=== PATIENT | male | born 1960 | race Caucasian/White ===

== ENCOUNTER 2016-07-25 01:22 | Observation (INO) | payer SELFPAY ==
[2016-07-25] MEDS ORDERED: NITRO-BID 2% UD PACKETS ONE (01:31)
[2016-07-25] MEDS ORDERED: BABY ASPIRIN 81 MG CHEW PO ONE (01:31)
[2016-07-25] MEDS ORDERED: NITRO-BID 2% UD PACKETS TOP ONE (01:31)
--- NOTE | 2016-07-25 01:37 | ERPHSYRPT ---
- History of Present Illness Time Seen by Provider: 07/25/16 01:24 Historian: patient Exam Limitations: no limitations Physician History: S/P CABG x? 3.5 months ago, but continues to smoke. Also HTN , hyperlipidemia and marijuana use. 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 He states it feels like indigestion 5/10 intensity, substernal , radiating down left arm and into left shoulderblade. Timing/Duration: yesterday, worse (tonight x 30 minutes) Activities at Onset: sleep Quality: sharpness Location: substernal Chest Pain Radiation: arm, back Severity of Pain-Max: severe Severity of Pain-Current: moderate Associated Symptoms: other (knot medial left thigh at site of vein harvest for CABG. ) Prior Chest Pain/Cardiac Workup: angina Aspirin Treatment Today: 81 mg x 4, provided by ED Allergies/Adverse Reactions: naproxen Adverse Reaction (Verified 07/25/16 01:32) Home Medications: Atorvastatin Calcium 40 mg PO HS 07/25/16 [History] Clopidogrel Bisulfate 75 mg [PLAVIX 75 MG Tablet] 75 mg PO DAILY 07/25/16 [History] Lisinopril [Zestril] 2.5 mg PO DAILY 07/25/16 [History] Metoprolol Succinate 50 mg [Toprol Xl 50 MG] 50 mg PO BID 07/25/16 [ History] - Review of Systems Constitutional: No Symptoms Eyes: No Symptoms Ears, Nose, & Throat: No Symptoms Respiratory: No Symptoms Cardiac: Chest Pain Abdominal/Gastrointestinal: No Symptoms Musculoskeletal: No Symptoms Skin: No Symptoms, Other (healed midline sternotomy scar) Neurological: No Symptoms Psychological: No Symptoms Endocrine: No Symptoms Hematologic/Lymphatic: No Symptoms Immunological/Allergic: No Symptoms - Nursing Vital Signs Temperature: 97.8 F Temperature Source: Oral Pulse Rate: 78 Respiratory Rate: 20 - Physical Exam General Appearance: moderate distress Eye Exam: eyes nml inspection Ears, Nose, Throat Exam: normal ENT inspection, pharynx normal Neck Exam: normal inspection, non-tender, supple, full range of motion Respiratory Exam: normal breath sounds, lungs clear Cardiovascular Exam: regular rate/rhythm, normal heart sounds, normal peripheral pulses Gastrointestinal/Abdomen Exam: soft, normal bowel sounds Back Exam: normal inspection, normal range of motion Extremity Exam: normal inspection, normal range of motion, pelvis stable Neurologic Exam: alert, oriented x 3, cooperative, normal mood/affect Skin Exam: normal color, warm, dry SpO2 Interpretation: normal SpO2: 100 Oxygen Delivery: Room Air - Course Nursing assessment & vital signs reviewed: Yes EKG Interpreted by Me: RATE, Sinus Rhythm (68), NORMAL AXIS, Other (Lateral T wave flattening. Rate has slowed since ECG of 4.) - CT Exams Chest CT Interpretation: Negative (No dissection), Tele-radiologist Report (No dissection), No Fracture Abdomen/Pelvis CT Interpretation: Tele-radiologist Report (Possible cholelithiasis. RUQ US recommended.) Ordered Tests: Active Orders 24 hr Category Date Time Status Cnc Supervisor STAT Care 07/25/16 01:43 Active EKG-ER Only STAT Care 07/25/16 01:43 Active IV Insertion STAT Care 07/25/16 01:43 Active Oxygen-ED Only NASAL CANNULA 2 lpm Care 07/25/16 01:43 Active ABDOMEN AND PELVIS W CONTRAST [CT] Stat Exams 07/25/16 01:46 Taken CHEST WITH CONTRAST [CT] Stat Exams 07/25/16 01:46 Taken CBC W DIFF Stat Lab 07/25/16 01:53 Completed CMP Stat Lab 07/25/16 01:53 Completed LIPASE Stat Lab 07/25/16 01:45 Completed NT PRO BNP Stat Lab 07/25/16 01:53 Completed PROTIME WITH INR Stat Lab 07/25/16 01:53 Completed TROPONIN Q3H Lab 07/25/16 01:57 Completed TROPONIN Q3H Lab 07/25/16 04:45 Ordered TROPONIN Q3H Lab 07/25/16 07:45 Ordered TROPONIN Q3H Lab 07/25/16 10:45 Ordered TROPONIN Q3H Lab 07/25/16 13:45 Ordered Urine Triage Profile Stat Lab 07/25/16 01:42 Ordered Medication Summary Discontinued Medications Generic Name Dose Route Start Last Admin Trade Name Freq PRN Reason Stop Dose Admin Aspirin 324 mg 07/25/16 01:31 07/25/16 01:48 Baby Aspirin 81 Mg Chew PO 07/25/16 01:32 324 mg STAT ONE Administration Lorazepam 1 mg 07/25/16 03:05 07/25/16 03:15 Ativan 2 Mg/1 Ml Vial IV 07/25/16 03:06 1 mg STAT ONE Administration Lorazepam Confirm 07/25/16 03:12 Ativan 2 Mg/1 Ml Vial Administered 07/25/16 03:13 Dose 2 mg .ROUTE .STK-MED ONE Morphine Sulfate 4 mg 07/25/16 01:43 07/25/16 01:53 Morphine Sulfate 4 Mg Inj IV 07/25/16 01:44 4 mg STAT ONE Administration Morphine Sulfate Confirm 07/25/16 01:52 Morphine Sulfate 4 Mg Inj Administered 07/25/16 01:53 Dose 4 mg .ROUTE .STK-MED ONE Morphine Sulfate 4 mg 07/25/16 03:08 07/25/16 03:14 Morphine Sulfate 4 Mg Inj IV 07/25/16 03:09 4 mg STAT ONE Administration Morphine Sulfate Confirm 07/25/16 03:10 Morphine Sulfate 4 Mg Inj Administered 07/25/16 03:11 Dose 4 mg .ROUTE .STK-MED ONE Nitroglycerin 1 gm 07/25/16 01:31 07/25/16 01:49 Nitro-Bid 2% Ud Packets TOP 07/25/16 01:32 1 gm STAT ONE Administration Nitroglycerin Confirm 07/25/16 01:31 Nitro-Bid 2% Ud Packets Administered 07/25/16 01:32 Dose 1 gm .ROUTE .STK-MED ONE Ondansetron HCl 4 mg 07/25/16 01:43 07/25/16 01:53 Zofran 4 Mg/2 Ml Vial IV 07/25/16 01:44 4 mg STAT ONE Administration Ondansetron HCl Confirm 07/25/16 01:52 Zofran 4 Mg/2 Ml Vial Administered 07/25/16 01:53 Dose 4 mg .ROUTE .STK-MED ONE Pantoprazole Sodium 40 mg 07/25/16 03:04 07/25/16 03:21 Protonix 40 Mg Iv IV 07/25/16 03:05 40 mg STAT ONE Administration Pantoprazole Sodium Confirm 07/25/16 03:09 Protonix 40 Mg Iv Administered 07/25/16 03:10 Dose 40 mg IV .STK-MED ONE Lab/Rad Data: Laboratory Result Diagrams 07/25/16 01:53 07/25/16 01:53 Laboratory Results 07/25/16 07/25/16 07/25/16 Range/Units 01:57 01:53 01:53 WBC (4.0-10.5) K/mm3 RBC (4.1-5.6) M/mm3 Hgb (12.5-18.0) gm/dl Hct (42-50) % MCV (78-100) fl MCH (26-32) pg MCHC (32-36) g/dl RDW (11.5-14.0) % Plt Count (150-450) K/mm3 MPV (6-9.5) fl Gran % (36.0-66.0) % Lymphocytes % (24.0-44.0) % Monocytes % (0.0-12.0) % Eosinophils % (0.00-5.0) % Basophils % (0.0-0.4) % Basophils # (0-0.4) INR 0.96 (0.8-3.0) Sodium 139 (136-145) mEq/L Potassium 3.8 (3.5-5.1) mEq/L Chloride 101 (98-107) mEq/L Carbon Dioxide 29.0 (21-32) mEq/L Anion Gap 13.0 (5-15) MEQ/L BUN 8 L (9-20) mg/dL Creatinine 1.26 (0.55-1.30) mg/dl Estimated GFR > 60 ML/MIN Glucose 131 H (70-110) MG/DL Calcium 9.0 (8.5-10.1) mg/dL Total Bilirubin 0.3 (0.2-1.0) mg/dL AST 18 (15-37) U/L ALT 26 (12-78) U/L Alkaline Phosphatase 107 (46-116) U/L Troponin I 0.030 (0.000-0.056) ng/ml NT-Pro-B Natriuret Pep 237 H (0-125) pg/ml Serum Total Protein 6.9 (6.4-8.2) gm/dL Albumin 3.7 (3.4-5.0) g/dL Lipase (73-393) U/L 07/25/16 07/25/16 Range/Units 01:53 01:45 WBC 10.8 H (4.0-10.5) K/mm3 RBC 5.14 (4.1-5.6) M/mm3 Hgb 14.9 (12.5-18.0) gm/dl Hct 46.5 (42-50) % MCV 90.5 (78-100) fl MCH 29.0 (26-32) pg MCHC 32.0 (32-36) g/dl RDW 14.7 H (11.5-14.0) % Plt Count 243 (150-450) K/mm3 MPV 9.5 (6-9.5) fl Gran % 54.5 (36.0-66.0) % Lymphocytes % 34.0 (24.0-44.0) % Monocytes % 7.7 (0.0-12.0) % Eosinophils % 3.6 (0.00-5.0) % Basophils % 0.2 (0.0-0.4) % Basophils # 0.02 (0-0.4) INR (0.8-3.0) Sodium (136-145) mEq/L Potassium (3.5-5.1) mEq/L Chloride (98-107) mEq/L Carbon Dioxide (21-32) mEq/L Anion Gap (5-15) MEQ/L BUN (9-20) mg/dL Creatinine (0.55-1.30) mg/dl Estimated GFR ML/MIN Glucose (70-110) MG/DL Calcium (8.5-10.1) mg/dL Total Bilirubin (0.2-1.0) mg/dL AST (15-37) U/L ALT (12-78) U/L Alkaline Phosphatase (46-116) U/L Troponin I (0.000-0.056) ng/ml NT-Pro-B Natriuret Pep (0-125) pg/ml Serum Total Protein (6.4-8.2) gm/dL Albumin (3.4-5.0) g/dL Lipase 118 (73-393) U/L - Progress Progress: improved Air Movement: good Blood Culture(s) Obtained: No Antibiotics given: No Discussed with : Tom Will see patient in: hospital (observation) Counseled pt/family regarding: lab results, diagnosis, need for follow-up, rad results - Departure Time of Disposition: 03:30 Departure Disposition: Observation Clinical Impression: Chest pain Qualifiers: Chest pain type: unspecified Qualified Code(s): R07.9 - Chest pain, unspecified Cholelithiasis Qualifiers: Cholelithiasis location: gallbladder Cholecystitis presence: without cholecystitis Biliary obstruction: without biliary obstruction Qualified Code(s) : K80.20 - Calculus of gallbladder without cholecystitis without obstruction Condition: Stable Critical Care Time: Yes Critical Care Time(excluding separately billable procedures): 75-104 minutes
[2016-07-25] MEDS ORDERED: Zofran 4 MG/2 ML VIAL IV ONE (01:43)
[2016-07-25] MEDS ORDERED: MORPHINE SULFATE 4 MG INJ IV ONE ×2 (01:43→03:08)
[2016-07-25] MEDS ORDERED: Zofran 4 MG/2 ML VIAL ONE (01:52)
[2016-07-25] MEDS ORDERED: MORPHINE SULFATE 4 MG INJ ONE ×2 (01:52→03:10)
[2016-07-25 01:57] LABS: BASOPHIL % 0.2 % (0.0-0.4); Eosinophil % 3.6 % (0.00-5.0); Granulocytes % 54.5 % (36.0-66.0); Mean Cell Volume 90.5 fl (78-100); Mean Platelet Volume 9.5 fl (6-9.5); Monocytes % 7.7 % (0.0-12.0); Platelet Count 243 K/mm3 (150-450); Red Blood Count 5.14 M/mm3 (4.1-5.6); Red Cell Distribution Width 14.7 % (11.5-14.0); White Blood Count 10.8 K/mm3 (4.0-10.5)
[2016-07-25 02:18] LABS: ALBUMIN 3.7 g/dL (3.4-5.0); ALKALINE PHOSPHATASE 107 U/L (46-116); BILIRUBIN,TOTAL 0.3 mg/dL (0.2-1.0); BLOOD UREA NITROGEN 8 mg/dL (9-20); CHLORIDE 101 mEq/L (98-107); Glucose 131 MG/DL (70-110); Potassium 3.8 mEq/L (3.5-5.1); SGOT/AST 18 U/L (15-37); SGPT/ALT 26 U/L (12-78); SODIUM 139 mEq/L (136-145); Total Protein 6.9 gm/dL (6.4-8.2)
[2016-07-25 02:26] LABS: INR 0.96 (0.8-3.0); PROTIME 10.8 SECONDS (8.83-12.87)
[2016-07-25] MEDS ORDERED: PROTONIX 40 MG IV IV ONE ×2 (03:04→03:09)
[2016-07-25] MEDS ORDERED: Ativan 2 MG/1 ML VIAL IV ONE (03:05)
[2016-07-25] MEDS ORDERED: Ativan 2 MG/1 ML VIAL ONE (03:12)
[2016-07-25] MEDS ORDERED: TYLENOL 325 MG PO PRN (04:44)
[2016-07-25] MEDS ORDERED: Senokot-S Tablet PO PRN (04:44)
[2016-07-25] MEDS ORDERED: Zofran 4 MG/2 ML VIAL IV PRN (04:44)
[2016-07-25] MEDS ORDERED: MAALOX ES 30 ML UNIT DOSE PO PRN (04:44)
[2016-07-25] MEDS ORDERED: MILK OF MAGNESIA 30 ML PO PRN (04:44)
[2016-07-25] MEDS ORDERED: NITRO-BID 2% UD PACKETS TOP SCH (06:00)
[2016-07-25] MEDS: MORPHINE SULFATE 2 MG INJ IV PRN ×3 (06:08→08:24)
[2016-07-25 07:51] VITALS: BP 141/67; PULSE 53; O2SAT 94
--- NOTE | 2016-07-25 07:52 | PCM.SSS ---
History of Present Illness - Chief Complaint Chief Complaint: Chest pain rule out ACS History of Present Illness: is a 55 year old male with a history of coronary artery disease who had CABG March of this year. 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 He was short of breath with his pain, initial troponin was negative but second was elevated and he continues to have pain. He currently has on nitro paste and his pain is improved with morphine but continues to return. - Review of Systems Constitutional: No Fever, No Chills Respiratory: No Cough, No Short Of Breath Cardiac: Chest Pain, No Edema, No Palpitations Abdominal/Gastrointestinal: No Abdominal Pain, No Nausea, No Vomiting, No Diarrhea Genitourinary Symptoms: No Dysuria Skin: No Rash All Other Systems: Reviewed and Negative Medications & Allergies Home Medications: Home Medication List Atorvastatin Calcium 40 mg PO HS 07/25/16 [History Confirmed 07/25/16] Clopidogrel Bisulfate 75 mg [PLAVIX 75 MG Tablet] 75 mg PO DAILY 07/25/16 [History Confirmed 07/25/16] Lisinopril [Zestril] 2.5 mg PO DAILY 07/25/16 [History Confirmed 07/25/16] Metoprolol Succinate 50 mg [Toprol Xl 50 MG] 50 mg PO BID 07/25/16 [ History Confirmed 07/25/16] Allergies/Adverse Reactions: Allergies Allergy/AdvReac Type Severity Reaction Status Date / Time naproxen AdvReac Verified 07/25/16 01:32 - Past Medical History Past Medical History: Yes Cardiac History: Myocardial Infarction ([place]) Respiratory History: COPD Musculoskelatal History: No Pertinent History GI Medical History: No Pertinent History History: No Pertinent History Pyscho-Social History: No Pertinent History Male Reproductive Disorders: No Pertinent History Comment: Pt reports that partner reported to him that she tested positive for an STD but he is unsure which one it is. - Past Surgical History Past Surgical History: Yes Cardiac History: CABG GI Surgical History: No Pertinent History Genitourinary Surgical Hx: No Pertinent History Musculskeletal Surgical Hx: No Pertinent History Male Surgical History: No Pertinent History Other Surgical History: Pt reports having CABG in March of this year. - Social History Smoking Status: Current every day smoker How long have you smoked: 40 yrs Exposure to second hand smoke: Yes Alcohol: None Drug Use: marijuana - Physical Exam Vital Signs: Vital Signs - 24 hr Temp Pulse Pulse Resp BP Pulse Ox 07/25/16 07:20 98 07/25/16 06:00 95 07/25/16 04:38 98.5 F 80 20 165/85 95 07/25/16 03:55 97.8 F 78 20 100 07/25/16 03:02 83 14 124/70 97 07/25/16 02:42 74 19 129/68 98 07/25/16 01:27 74 07/25/16 01:24 97.8 F 78 20 162/88 100 General Appearance: no apparent distress, alert Eye Exam: PERRL/EOMI, eyes nml inspection Respiratory Exam: normal breath sounds, lungs clear, No respiratory distress Cardiovascular Exam: regular rate/rhythm, normal heart sounds, normal peripheral pulses Gastrointestinal/Abdomen Exam: soft, normal bowel sounds, No tenderness, No mass Extremity Exam: normal inspection, normal range of motion, pelvis stable Results - Labs Lab/Micro Results: Lab Results-Last 24 Hours 07/25/16 Range/Units 05:00 Troponin I 3.865 H* (0.000-0.056) ng/ml - Other Procedures and Tests Respiratory Therapy 07/25/16 07:20 Oxygen NASAL CANNULA 2 lpm 07/25/16 09:46 EKG ROUTINE 07/26/16 05:00 EKG DAILY 07/27/16 05:00 EKG DAILY 07/28/16 05:00 EKG DAILY Assessment/Plan (1) Non-ST elevation (NSTEMI) myocardial infarction Current Visit: Yes Status: Acute Assessment & Plan: Dr Segura has been contacted and patient will be [facility] care. Code(s): I21.4 - NON-ST ELEVATION (NSTEMI) MYOCARDIAL INFARCTION (2) Chest pain Current Visit: Yes Status: Acute Qualifiers: Chest pain type: unspecified Qualified Code(s): R07.9 - Chest pain, unspecified Code(s): R07.9 - CHEST PAIN, UNSPECIFIED Hospital Summary - Vitals & Intake/Output Vital Signs: Vital Signs Temperature 98.5 F 07/25/16 04:38 Pulse Rate 80 07/25/16 04:38 Respiratory Rate 20 07/25/16 04:38 Blood Pressure 165/85 07/25/16 04:38 O2 Sat by Pulse Oximetry 98 07/25/16 07:20 Intake & Output: Intake & Output 07/22/16 07/23/16 07/24/16 07/25/16 11:59 11:59 11:59 11:59 Weight 79.333 kg - Lab Result Diagrams: 07/25/16 01:53 07/25/16 01:53 Lab Results-Last 24 Hrs: Lab Results-Last 24 Hours 07/25/16 Range/Units 05:00 Troponin I 3.865 H* (0.000-0.056) ng/ml - Procedures and Test Procedures and Tests throughout Hospitalization: Therapy Orders & Screens 07/25/16 07:19 EKG ONCE Comment: Diagnosis: Chest pain rule out ACS 07/25/16 07:20 Oxygen NASAL CANNULA 2 lpm Comment: Diagnosis: Chest pain rule out ACS 07/25/16 09:46 EKG ROUTINE Comment: Diagnosis: Chest pain rule out ACS 07/26/16 05:00 EKG DAILY Comment: Diagnosis: Chest pain rule out ACS 07/27/16 05:00 EKG DAILY Comment: Diagnosis: Chest pain rule out ACS 07/28/16 05:00 EKG DAILY Comment: Diagnosis: Chest pain rule out ACS - Discharge Disposition: Home, Self-Care Condition: Stable Prescriptions: No Action Atorvastatin Calcium 40 mg PO HS Lisinopril [Zestril] 2.5 mg PO DAILY Clopidogrel Bisulfate 75 mg [PLAVIX 75 MG Tablet] 75 mg PO DAILY Metoprolol Succinate 50 mg [Toprol Xl 50 MG] 50 mg PO BID Follow up with: DOCTOR,NO FAMILY [Primary Care Provider] - Forms: Ambulance Transport Record, Transfer Record Inter-Agency
--- NOTE | 2016-07-25 08:27 | PCM.DCORD ---
- Discharge Disposition: [facility] Condition: Serious Prescriptions: No Action Atorvastatin Calcium 40 mg PO HS Lisinopril [Zestril] 2.5 mg PO DAILY Clopidogrel Bisulfate 75 mg [PLAVIX 75 MG Tablet] 75 mg PO DAILY Metoprolol Succinate 50 mg [Toprol Xl 50 MG] 50 mg PO BID Forms: Ambulance Transport Record, Transfer Record Inter-Agency
--- NOTE | 2016-07-25 08:55 | XRAY ---
Indication: Chest pain and left-sided numbness. Possible dissection. Multiple contiguous axial images obtained through the abdomen and pelvis using 80 cc Isovue 370 contrast. Comparison: None CT chest reported separately. Mild/moderate aortoiliac calcifications. No AAA, aortic dissection, or pathologic retroperitoneal lymphadenopathy. Noncontrasted stomach and bowel loops appear nonobstructed. There is mild scattered colonic fecal debris throughout. Normal appendix. No free fluid/air. 14 mm right renal cyst. Enlarged prostate gland impresses on the base of the bladder. Remaining liver, gallbladder, pancreas, spleen, adrenal glands, kidneys, ureters, and bladder appear unremarkable. Osseous structures intact with remote appearing superior endplate fractures of T11/L2 with approximately 25% height loss. Impression: 1. Scattered arteriosclerotic disease. Negative for AAA/dissection. 2. Incidental right renal cyst and enlarged prostate gland. 3. Remote-appearing T11/L2 endplate fractures. Comment: Preliminary interpretation was made by [facility]. No critical discrepancy. CT DI 21.54.
--- NOTE | 2016-07-25 09:00 | XRAY ---
Indication: Chest pain and left-sided numbness. Possible dissection. Multiple contiguous axial images obtained through the chest using 80 cc Isovue 370 contrast and PE protocol. Comparison: None There is good opacification of the pulmonary arteries to includes the lobar and segmental branches. No filling defect or pulmonary embolus. Heart is not enlarged. Previous CABG surgery. Aorta is normal in course and caliber. No pathologic mediastinal/hilar lymphadenopathy. Examination of the lung parenchyma demonstrates left lower lobe calcified granuloma. No suspicious pulmonary mass, infiltrate, consolidation, or effusion. Bony thorax intact with sternotomy wires and remote appearing superior endplate fractures of T11 with approximately 25% height loss. CT abdomen/pelvis reported separately. Impression: 1. Negative for pulmonary embolus. No acute cardiopulmonary abnormalities. 2. Incidental left lower lobe calcified granuloma and remote-appearing T11 endplate fracture. Comment: Preliminary interpretation was made by [facility]. No critical discrepancy. CT DI 21.54.
[2016-07-25] MEDS ORDERED: Pepcid 20 MG VIAL IV SCH (10:00)
[2016-07-25] MEDS ORDERED: Ecotrin 325 MG PO SCH (10:00)
== END 2016-07-25 08:30 | disposition short-term general hospital (02) ==
LOC: ED 01:22 → MED SURG 04:25
PROVIDERS: ADMIT Family Medicine; ATTEND Family Medicine
DX: I21.4 Non-ST elevation (NSTEMI) myocardial infarction (principal); R07.9 Chest pain, unspecified; I25.810 Atherosclerosis of coronary artery bypass graft(s) without angina pectoris; I10 Essential (primary) hypertension; J44.9 Chronic obstructive pulmonary disease, unspecified; E78.5 Hyperlipidemia, unspecified; Z72.0 Tobacco use; Z79.899 Other long term (current) drug therapy
CPT/HCPCS: 36000; 36415; 71260; 74177; 80053; 80307; 83690; 83880; 84484; 85025; 85610; 93005; 93041; 93268; 94760; 96374; 96375; 96376; 99285; G0378; J2060; J2270; J2405; A9270-GY

== ENCOUNTER 2016-08-25 21:19 | Emergency (ER) | payer OTHER ==
--- NOTE | 2016-08-25 21:43 | ERPHSYRPT ---
- History of Present Illness Time Seen by Provider: 08/25/16 21:37 Historian: patient Exam Limitations: no limitations Physician History: States having L upper chest for past 2 days. Chest pain is sharp, localized, intermittent lasting 1-2 minutes and usally occurs while sitting. Pain is also associated with dizziness, weakness, nausea, palpations, but no SOB, vomiting fever or chills. States "smoker's cough" and smoking 8-9 cig/day. States feels like passing out at times. Pt. thought he was bitten by ?insect/spider in [place] prior to symptoms began. States had some redness but much improved since then. Timing/Duration: day(s) (2) Activities at Onset: rest Quality: sharpness Location: other (L upper chest) Chest Pain Radiation: no radiation Severity of Pain-Max: moderate Severity of Pain-Current: none Modifying Factors: Improves With: exertion (worsens), movement (worsens) Associated Symptoms: nausea, palpitations, cough, fatigue, weakness, dizziness, No vomiting, No shortness of breath, No hurts to breathe, No diaphoresis, No headache Prior Chest Pain/Cardiac Workup: heart attack (Had CABG X 3 in 04/16 then again in 07/15 requiring replacement of 2/3 vessels placed), recent hospitalization Nitro Today/Relief: no nitro taken today Aspirin Treatment Today: 81 mg x 1 Allergies/Adverse Reactions: naproxen Adverse Reaction (Verified 08/25/16 21:49) Home Medications: Atorvastatin Calcium 40 mg PO HS 07/25/16 [History] Clopidogrel Bisulfate 75 mg [PLAVIX 75 MG Tablet] 75 mg PO DAILY 07/25/16 [History] Lisinopril [Zestril] 2.5 mg PO DAILY 07/25/16 [History] Aspirin [Aspirin EC] 1 tab DAILY 08/25/16 [History] Metoprolol Tartrate [Lopressor] 50 mg PO BID 08/25/16 [History] Hx Tetanus, Diphtheria Vaccination/Date Given: Yes Hx Influenza Vaccination/Date Given: No Hx Pneumococcal Vaccination/Date Given: No - Review of Systems Constitutional: Fatigue, Weakness, No Fever, No Chills Eyes: No Symptoms Ears, Nose, & Throat: No Symptoms, No Nose Congestion, No Throat Swelling Respiratory: Cough, No Dyspnea Cardiac: Chest Pain, Palpitations, No Edema, No Syncope Abdominal/Gastrointestinal: Abdominal Pain (Where surgery recently performed), Nausea, No Vomiting, No Diarrhea Genitourinary Symptoms: No Symptoms, No Dysuria Musculoskeletal: No Symptoms, No Back Pain, No Neck Pain Skin: No Symptoms, No Rash Neurological: Dizziness, No Focal Weakness, No Sensory Changes Psychological: No Symptoms Endocrine: No Symptoms Hematologic/Lymphatic: No Symptoms Immunological/Allergic: No Symptoms All Other Systems: Reviewed and Negative - Past Medical History Neurological History: No Pertinent History ENT History: No Pertinent History Cardiac History: Myocardial Infarction ([place]) Respiratory History: COPD Musculoskeletal History: No Pertinent History GI Medical History: No Pertinent History History: No Pertinent History Psycho-Social History: No Pertinent History Male Reproductive Disorders: No Pertinent History Other Medical History: Pt reports that partner reported to him that she tested positive for an STD but he is unsure which one it is. - Past Surgical History Past Surgical History: Yes Cardiac: CABG Gastrointestinal: No Pertinent History Genitourinary: No Pertinent History Musculoskeletal: No Pertinent History Male Surgical History: No Pertinent History Other Surgical History: Pt reports having CABG in March of this year. - Social History Smoking Status: Current every day smoker How long have you smoked: 40 yrs Exposure to second hand smoke: Yes Drug Use: marijuana Patient Lives Alone: No - Nursing Vital Signs Nursing Vital Signs: Initial Vital Signs Temperature 98.1 F Temperature Source Oral Pulse Rate [Left] 72 Pulse Rate 76 Respiratory Rate 16 Blood Pressure [Left Arm] 114/68 Pain Intensity 1 - Physical Exam General Appearance: no apparent distress, alert Eye Exam: PERRL/EOMI, eyes nml inspection Ears, Nose, Throat Exam: normal ENT inspection, moist mucous membranes Neck Exam: normal inspection, non-tender, supple, full range of motion Respiratory Exam: normal breath sounds, lungs clear, No respiratory distress Cardiovascular Exam: regular rate/rhythm, normal heart sounds Gastrointestinal/Abdomen Exam: soft, No tenderness, No mass Back Exam: normal inspection, No CVA tenderness, No vertebral tenderness Extremity Exam: normal inspection, normal range of motion Neurologic Exam: alert, oriented x 3, cooperative, normal mood/affect, sensation nml, No motor deficits Skin Exam: normal color, warm, dry, other (Small lesion to R distal thigh area, no redness noted but minimal bruising noted.) Lymphatic Exam: No adenopathy SpO2 Interpretation: normal SpO2: 99 Oxygen Delivery: Room Air - Course Nursing assessment & vital signs reviewed: Yes EKG Interpreted by Me: RATE (78), Sinus Rhythm, NORMAL AXIS, NORMAL INTERVALS, Non-specific ST Changes (flipped T's in leads I, aVL and V4-6. Lat leads changes new) - Radiology Exams Chest X-ray Interpretation: Interpreted by me, No Pneumothorax, No Infiltrates Ordered Tests: Active Orders 24 hr Category Date Time Status Student Development Specialist STAT Care 08/25/16 21:55 Active EKG-ER Only STAT Care 08/25/16 21:55 Active IV Insertion STAT Care 08/25/16 21:55 Active Pulse Oximetry (ED) STAT Care 08/25/16 21:55 Active CHEST 1 VIEW (PORTABLE) Stat Exams 08/25/16 21:56 Taken BMP Stat Lab 08/25/16 21:55 Completed CBC W DIFF Stat Lab 08/25/16 21:55 Completed CK-Creatinine Phosphokinase Stat Lab 08/25/16 21:55 Completed TROPONIN Q3H Lab 08/25/16 21:55 Completed TROPONIN Q3H Lab 08/26/16 01:00 Ordered TROPONIN Q3H Lab 08/26/16 04:00 Ordered TROPONIN Q3H Lab 08/26/16 07:00 Ordered TROPONIN Q3H Lab 08/26/16 10:00 Ordered Medication Summary Discontinued Medications Generic Name Dose Route Start Last Admin Trade Name Freq PRN Reason Stop Dose Admin Aspirin 243 mg 08/25/16 21:55 08/25/16 22:05 Baby Aspirin 81 Mg Chew PO 08/25/16 21:56 243 mg STAT ONE Administration Aspirin Confirm 08/25/16 22:06 Baby Aspirin 81 Mg Chew Administered 08/25/16 22:07 Dose 243 mg .ROUTE .STK-MED ONE Lab/Rad Data: Laboratory Result Diagrams 08/25/16 21:55 08/25/16 21:55 Laboratory Results 08/25/16 08/25/16 08/25/16 Range/Units 21:55 21:55 21:55 WBC 9.8 (4.0-10.5) K/mm3 RBC 4.64 (4.1-5.6) M/mm3 Hgb 13.5 (12.5-18.0) gm/dl Hct 42.2 (42-50) % MCV 90.9 (78-100) fl MCH 29.1 (26-32) pg MCHC 32.0 (32-36) g/dl RDW 14.4 H (11.5-14.0) % Plt Count 310 (150-450) K/mm3 MPV 10.0 H (6-9.5) fl Gran % 50.7 (36.0-66.0) % Lymphocytes % 36.4 (24.0-44.0) % Monocytes % 6.6 (0.0-12.0) % Eosinophils % 6.1 H (0.00-5.0) % Basophils % 0.2 (0.0-0.4) % Basophils # 0.02 (0-0.4) Sodium 141 (136-145) mEq/L Potassium 4.6 (3.5-5.1) mEq/L Chloride 103 (98-107) mEq/L Carbon Dioxide 31.0 (21-32) mEq/L Anion Gap 11.2 (5-15) MEQ/L BUN 14 (9-20) mg/dL Creatinine 1.01 (0.55-1.30) mg/dl Estimated GFR > 60 ML/MIN Glucose 107 (70-110) MG/DL Calcium 9.5 (8.5-10.1) mg/dL Creatine Kinase 46 (39-308) U/L Troponin I 0.033 (0.000-0.056) ng/ml - Progress Progress: improved Air Movement: good Progress Note: 08/25/16 23:06 Pt. given ASA X 3, no CP presently Blood Culture(s) Obtained: No Antibiotics given: No Discussed with Dr.: Other (Dr. Mendez, construction project manager, from [facility] notified and agrees to admission) Counseled pt/family regarding: lab results, diagnosis, rad results - Departure Time of Disposition: 23:08 Departure Disposition: Transfer ([facility] Dr. Mendez accepted) Clinical Impression: Chest pain Condition: Stable Critical Care Time: No
[2016-08-25] MEDS ORDERED: BABY ASPIRIN 81 MG CHEW PO ONE (21:55)
[2016-08-25 22:02] LABS: BASOPHIL % 0.2 % (0.0-0.4); Eosinophil % 6.1 % (0.00-5.0); Granulocytes % 50.7 % (36.0-66.0); Lymphocytes % 36.4 % (24.0-44.0); Mean Cell Volume 90.9 fl (78-100); Mean Corpuscular Hemoglobin 29.1 pg (26-32); Monocytes % 6.6 % (0.0-12.0); Platelet Count 310 K/mm3 (150-450); Red Blood Count 4.64 M/mm3 (4.1-5.6); Red Cell Distribution Width 14.4 % (11.5-14.0); White Blood Count 9.8 K/mm3 (4.0-10.5)
[2016-08-25] MEDS ORDERED: BABY ASPIRIN 81 MG CHEW ONE (22:06)
[2016-08-25 22:24] LABS: ANION GAP 11.2 MEQ/L (5-15); BLOOD UREA NITROGEN 14 mg/dL (9-20); CHLORIDE 103 mEq/L (98-107); Glucose 107 MG/DL (70-110); Potassium 4.6 mEq/L (3.5-5.1); SODIUM 141 mEq/L (136-145)
[2016-08-25 23:40] VITALS: O2SAT 97
[2016-08-26 00:11] VITALS: BP 108/70; PULSE 72
--- NOTE | 2016-08-26 10:04 | XRAY ---
Indication: Chest pain. Comparison: June 28, 2011. Portable chest demonstrates interval CABG surgery. Heart is not enlarged. Vascularity normal. Lungs inflated and clear with incidental left base calcified granuloma. Bony thorax intact. Impression: Nonacute chest with chronic features.
== END 2016-08-26 00:12 | disposition short-term general hospital (02) ==
LOC: ED 21:19
DX: R07.89 Other chest pain (principal); R42 Dizziness and giddiness; R11.0 Nausea; R53.1 Weakness; Z79.899 Other long term (current) drug therapy; Z95.1 Presence of aortocoronary bypass graft
CPT/HCPCS: 36000; 36415; 71010; 80048; 82550; 84484; 85025; 93005; 93041; 99285; A9270-GY

== ENCOUNTER 2016-10-31 19:58 | Emergency (ER) | payer OTHER ==
[2016-10-31 20:05] VITALS: BP 128/73; PULSE 66
[2016-10-31 20:08] VITALS: O2SAT 98
--- NOTE | 2016-10-31 20:28 | ERPHSYRPT ---
- History of Present Illness Time Seen by Provider: 10/31/16 20:17 Source: patient Exam Limitations: no limitations Patient Subjective Stated Complaint: reports that he has had a bad cough that is getting worse over the last 3 days - states that he feels like he cannot breathe today and his chest hurts when he coughs Triage Nursing Assessment: ambulatory Physician History: FOR THE PAST 3 DAYS PT HAS HAD A COUGH SOMETIMES PRODUCTIVE OF CLEAR PHLEGM WITH A HEADACHE, RUNNY NOSE AND CHEST SORENESS WITH COUGHING ONLY. PT DENIES FEVER, ABDOMINAL PAIN, VOMITING; ADMITS TO SOME SHORTNESS OF AIR. Allergies/Adverse Reactions: naproxen Adverse Reaction (Verified 10/31/16 20:04) Home Medications: Atorvastatin Calcium 40 mg PO HS 07/25/16 [History] Clopidogrel Bisulfate 75 mg [PLAVIX 75 MG Tablet] 75 mg PO DAILY 07/25/16 [History] Aspirin [Aspirin EC] 1 tab DAILY 08/25/16 [History] Hx Tetanus, Diphtheria Vaccination/Date Given: Yes Hx Influenza Vaccination/Date Given: Yes Hx Pneumococcal Vaccination/Date Given: Yes - Review of Systems Constitutional: No Fever Ears, Nose, & Throat: Nose Discharge Respiratory: Cough, Dyspnea Cardiac: Other (CHEST SORENESS) Neurological: Headache All Other Systems: Reviewed and Negative - Past Medical History Pertinent Past Medical History: Yes Neurological History: No Pertinent History ENT History: No Pertinent History Cardiac History: Myocardial Infarction (SD) Respiratory History: COPD Musculoskeletal History: No Pertinent History GI Medical History: No Pertinent History History: No Pertinent History Psycho-Social History: No Pertinent History Male Reproductive Disorders: No Pertinent History Other Medical History: Pt reports that partner reported to him that she tested positive for an STD but he is unsure which one it is. - Past Surgical History Past Surgical History: Yes Cardiac: CABG Gastrointestinal: No Pertinent History Genitourinary: No Pertinent History Musculoskeletal: No Pertinent History Male Surgical History: No Pertinent History Other Surgical History: Pt reports having CABG in March of this year. - Social History Smoking Status: Never smoker How long have you smoked: 40 yrs Exposure to second hand smoke: No Drug Use: marijuana Patient Lives Alone: No - Nursing Vital Signs Nursing Vital Signs: Initial Vital Signs Temperature 98.6 F 10/31/16 20:04 Pulse Rate 66 10/31/16 20:04 Respiratory Rate 14 10/31/16 20:04 Blood Pressure 128/73 10/31/16 20:04 O2 Sat by Pulse Oximetry 99 10/31/16 20:04 Pain Scale Pain Intensity 8 - Physical Exam General Appearance: no apparent distress, alert Eye Exam: PERRL/EOMI Ears, Nose, Throat Exam: TM abnormal (L) (SUPERIOR HALF OF LEFT TM INJECTED ), pharyngeal erythema Neck Exam: normal inspection Respiratory Exam: airway intact, wheezing (MILD EXPIRATORY WHEEZING) Cardiovascular Exam: normal heart sounds Gastrointestinal/Abdomen Exam: soft, normal bowel sounds Back Exam: normal range of motion Extremity Exam: pedal edema (+2 EDEMA OF LEFT FOOT/ANKLE(ONGOING SINCE MARCH 2016).) Neurologic Exam: alert, cooperative Skin Exam: warm, dry SpO2 Interpretation: normal SpO2: 98 Oxygen Delivery: Room Air - Course Nursing assessment & vital signs reviewed: Yes - Departure Time of Disposition: 20:30 Departure Disposition: Home Clinical Impression: BRONCHITIS, LOM, PHARYNGITIS Condition: Stable Critical Care Time: No Instructions: Bronchitis Additional Instructions: FOLLOW UP WITH PRIVATE DOCTOR TOMORROW. Prescriptions: Guaifenesin/Codeine Phosphate [Robitussin AC Syrup] 10 ml PO Q4H PRN PRN #120 ml PRN Reason: Cough Azithromycin 250 mg [Zithromax 250 MG TABLET] 250 mg PO ZPACK #6 tablet
== END 2016-10-31 20:49 | disposition home or self-care (01) ==
LOC: ED 19:58
DX: J40 Bronchitis, not specified as acute or chronic (principal); H66.92 Otitis media, unspecified, left ear; J02.9 Acute pharyngitis, unspecified
CPT/HCPCS: 99283

== ENCOUNTER 2017-02-21 19:27 | Emergency (ER) | payer OTHER ==
[2017-02-21] MEDS ORDERED: solu-MEDROL 125 MG IV ONE (19:47)
[2017-02-21] MEDS ORDERED: DUONEB 0.5-3 MG/3 ml Neb IH ONE ×4 (19:47→21:41)
[2017-02-21] MEDS ORDERED: BABY ASPIRIN 81 MG CHEW PO ONE (19:47)
--- NOTE | 2017-02-21 19:47 | ERPHSYRPT ---
- History of Present Illness Time Seen by Provider: 02/21/17 19:44 Source: patient Exam Limitations: no limitations Physician History: pt is a 56 year old smoker with COPD and SP CABG x [address] Candelario at but only compliant with his plavix - he was exposed to grandaughter at [facility] last week and she brought home a cold which he also caught ( by his HX and interpretation) but does have CP aching in area of prior sternotomy and tender to touch and when coughing; some SOB also above baseline no N, V , or diaphoresis; no prior PE known; Timing/Duration: day(s) Cough Quality/Degree: moderate, productive cough, sputum Possible Cause: occasional episodes Modifying Factors: Improves With: nothing, coughing Associated Symptoms: chest pain/soreness, cough, shortness of breath International travel in last 2 weeks: No Allergies/Adverse Reactions: naproxen Adverse Reaction (Verified 10/31/16 20:04) Home Medications: Clopidogrel Bisulfate 75 mg [PLAVIX 75 MG Tablet] 75 mg PO DAILY 07/25/16 [History] Hx Tetanus, Diphtheria Vaccination/Date Given: Yes Hx Influenza Vaccination/Date Given: Yes Hx Pneumococcal Vaccination/Date Given: Yes - Review of Systems Constitutional: No Fever, No Chills Eyes: No Symptoms Ears, Nose, & Throat: No Symptoms Respiratory: Cough, Dyspnea Cardiac: Chest Pain, No Edema, No Syncope Abdominal/Gastrointestinal: No Abdominal Pain, No Nausea, No Vomiting, No Diarrhea Genitourinary Symptoms: No Dysuria Musculoskeletal: No Back Pain, No Neck Pain Skin: No Rash Neurological: No Dizziness, No Focal Weakness, No Sensory Changes Psychological: No Symptoms Endocrine: No Symptoms Hematologic/Lymphatic: No Symptoms Immunological/Allergic: No Symptoms All Other Systems: Reviewed and Negative - Past Medical History Pertinent Past Medical History: Yes Neurological History: No Pertinent History ENT History: No Pertinent History Cardiac History: Myocardial Infarction ([place]) Respiratory History: COPD Musculoskeletal History: No Pertinent History GI Medical History: No Pertinent History History: No Pertinent History Psycho-Social History: No Pertinent History Male Reproductive Disorders: No Pertinent History Other Medical History: Pt reports that partner reported to him that she tested positive for an STD but he is unsure which one it is. - Past Surgical History Past Surgical History: Yes Cardiac: CABG Gastrointestinal: No Pertinent History Genitourinary: No Pertinent History Musculoskeletal: No Pertinent History Male Surgical History: No Pertinent History Other Surgical History: Pt reports having CABG in March of this year. - Social History Smoking Status: Never smoker How long have you smoked: 40 yrs Exposure to second hand smoke: No Drug Use: marijuana Patient Lives Alone: No - Nursing Vital Signs Nursing Vital Signs: Initial Vital Signs Temperature 97.7 F 02/21/17 19:39 Pulse Rate 93 H 02/21/17 19:39 Respiratory Rate 20 02/21/17 19:39 Blood Pressure 143/96 02/21/17 19:39 O2 Sat by Pulse Oximetry 98 02/21/17 19:39 Pain Scale Pain Intensity 4 - Physical Exam General Appearance: no apparent distress, alert Eye Exam: PERRL/EOMI, eyes nml inspection Ears, Nose, Throat Exam: normal ENT inspection, TMs normal, pharynx normal, moist mucous membranes Neck Exam: normal inspection, non-tender, supple, full range of motion Respiratory Exam: chest tenderness, airway intact, prolonged expirations, crackles/rales, No respiratory distress Cardiovascular Exam: regular rate/rhythm, normal heart sounds Gastrointestinal/Abdomen Exam: soft, No tenderness Rectal Exam: deferred Back Exam: normal inspection, No CVA tenderness, No vertebral tenderness Extremity Exam: normal inspection, normal range of motion Neurologic Exam: alert, oriented x 3, cooperative, normal mood/affect, sensation nml, No motor deficits Skin Exam: normal color, warm, dry, No rash Lymphatic Exam: No adenopathy - Course Nursing assessment & vital signs reviewed: Yes EKG Interpreted by Me: Sinus Rhythm, NORMAL AXIS, NORMAL INTERVALS, NORMAL QRS, Non-specific ST Changes - Radiology Exams Chest X-ray Interpretation: Reviewed by me, Infiltrates, Other (nodule RLL , increased infilt SHAYE, COPD) Ordered Tests: Active Orders 24 hr Category Date Time Status Car Rental Agent STAT Care 02/21/17 19:49 Active EKG-ER Only STAT Care 02/21/17 19:47 Active IV Insertion STAT Care 02/21/17 19:47 Active Pulse Oximetry (ED) STAT Care 02/21/17 19:47 Active CHEST 2 VIEWS (PA AND LAT) Stat Exams 02/21/17 19:49 Taken CBC W DIFF Stat Lab 02/21/17 19:45 Completed CK-Creatinine Phosphokinase Stat Lab 02/21/17 19:45 Completed CMP Stat Lab 02/21/17 19:45 Completed CULTURE,SPUTUM Stat Lab 02/21/17 20:00 Received D-DIMER QUANTITATION Stat Lab 02/21/17 19:45 Completed Lactic Acid Stat Lab 02/21/17 20:12 Completed NT PRO BNP Stat Lab 02/21/17 19:45 Completed TROPONIN Q3H Lab 02/21/17 19:45 Completed TROPONIN Q3H Lab 02/21/17 23:00 Ordered TROPONIN Q3H Lab 02/22/17 02:00 Ordered TROPONIN Q3H Lab 02/22/17 05:00 Ordered TROPONIN Q3H Lab 02/22/17 08:00 Ordered Respiratory Nebulizer STAT RT 02/21/17 19:51 Completed Medication Summary Generic Name Dose Route Start Last Admin Trade Name Freq PRN Reason Stop Dose Admin Sodium Chloride 1,000 mls @ 50 mls/hr 02/21/17 20:00 02/21/17 19:58 Sodium Chloride 0.9% 1000 Ml IV 03/23/17 19:59 50 mls/hr .Q20H ANDREW Administration Discontinued Medications Generic Name Dose Route Start Last Admin Trade Name Freq PRN Reason Stop Dose Admin Albuterol/Ipratropium 3 ml 02/21/17 19:47 02/21/17 19:55 Duoneb 0.5-3 Mg/3 Ml Neb IH 02/21/17 19:48 3 ml STAT ONE Administration Albuterol/Ipratropium Confirm 02/21/17 19:54 Duoneb 0.5-3 Mg/3 Ml Neb Administered 02/21/17 19:55 Dose 3 ml IH .STK-MED ONE Aspirin 324 mg 02/21/17 19:47 02/21/17 19:58 Baby Aspirin 81 Mg Chew PO 02/21/17 19:48 324 mg STAT ONE Administration Aspirin Confirm 02/21/17 19:55 Baby Aspirin 81 Mg Chew Administered 02/21/17 19:56 Dose 324 mg .ROUTE .STK-MED ONE Piperacillin Sod/Tazobactam Sod 3.375 gm in 100 mls @ 200 mls/hr 02/21/17 19: 52 02/21/17 20:32 Zosyn 3.375gm/100 Ml D5w IV 02/21/17 20:21 200 mls/hr STAT ONE Administration Ceftriaxone Sodium/Dextrose 1 g in 50 mls @ 100 mls/hr 02/21/17 19:53 Rocephin 1 Gm-D5w 50 Ml Bag IV 02/21/17 20:22 STAT STA Piperacillin Sod/Tazobactam Sod Confirm 02/21/17 20:16 Zosyn 3.375gm/100 Ml D5w Administered 02/21/17 20:17 Dose 3.375 gm in 100 mls @ ud IV .STK-MED ONE Ceftriaxone Sodium/Dextrose Confirm 02/21/17 20:21 Rocephin 1 Gm-D5w 50 Ml Bag Administered 02/21/17 20:22 Dose 1 g in 50 mls @ ud IV .STK-MED ONE Methylprednisolone Sodium Succinate 125 mg 02/21/17 19:47 02/21/17 19:58 Solu-Medrol 125 Mg IV 02/21/17 19:48 125 mg STAT ONE Administration Methylprednisolone Sodium Succinate Confirm 02/21/17 19:56 Solu-Medrol 125 Mg Administered 02/21/17 19:57 Dose 125 mg .ROUTE .STK-MED ONE Lab/Rad Data: Laboratory Result Diagrams 02/21/17 19:45 02/21/17 19:45 Laboratory Results 02/21/17 02/21/17 02/21/17 Range/Units 20:12 19:45 19:45 WBC (4.0-10.5) K/mm3 RBC (4.1-5.6) M/mm3 Hgb (12.5-18.0) gm/dl Hct (42-50) % MCV (78-100) fl MCH (26-32) pg MCHC (32-36) g/dl RDW (11.5-14.0) % Plt Count (150-450) K/mm3 MPV (6-9.5) fl Gran % (36.0-66.0) % Lymphocytes % (24.0-44.0) % Monocytes % (0.0-12.0) % Eosinophils % (0.00-5.0) % Basophils % (0.0-0.4) % Basophils # (0-0.4) D-Dimer 396 (0-500) ng/mL Sodium (136-145) mEq/L Potassium (3.5-5.1) mEq/L Chloride (98-107) mEq/L Carbon Dioxide (21-32) mEq/L Anion Gap (5-15) MEQ/L BUN (9-20) mg/dL Creatinine (0.55-1.30) mg/dl Estimated GFR ML/MIN Glucose (70-110) MG/DL Lactic Acid 0.8 (0.4-2.0) Calcium (8.5-10.1) mg/dL Total Bilirubin (0.2-1.0) mg/dL AST (15-37) U/L ALT (12-78) U/L Alkaline Phosphatase (46-116) U/L Creatine Kinase (39-308) U/L Troponin I < 0.017 (0.000-0.056) ng/ml NT-Pro-B Natriuret Pep (0-125) pg/ml Serum Total Protein (6.4-8.2) gm/dL Albumin (3.4-5.0) g/dL 02/21/17 02/21/17 Range/Units 19:45 19:45 WBC 8.2 (4.0-10.5) K/mm3 RBC 4.77 (4.1-5.6) M/mm3 Hgb 14.4 (12.5-18.0) gm/dl Hct 45.4 (42-50) % MCV 95.2 (78-100) fl MCH 30.2 (26-32) pg MCHC 31.7 L (32-36) g/dl RDW 14.0 (11.5-14.0) % Plt Count 223 (150-450) K/mm3 MPV 10.5 H (6-9.5) fl Gran % 52.7 (36.0-66.0) % Lymphocytes % 32.6 (24.0-44.0) % Monocytes % 8.6 (0.0-12.0) % Eosinophils % 5.7 H (0.00-5.0) % Basophils % 0.4 (0.0-0.4) % Basophils # 0.03 (0-0.4) D-Dimer (0-500) ng/mL Sodium 143 (136-145) mEq/L Potassium 4.3 (3.5-5.1) mEq/L Chloride 104 (98-107) mEq/L Carbon Dioxide 31.7 (21-32) mEq/L Anion Gap 11.7 (5-15) MEQ/L BUN 11 (9-20) mg/dL Creatinine 0.97 (0.55-1.30) mg/dl Estimated GFR > 60 ML/MIN Glucose 90 (70-110) MG/DL Lactic Acid (0.4-2.0) Calcium 9.1 (8.5-10.1) mg/dL Total Bilirubin 0.30 (0.2-1.0) mg/dL AST 20 (15-37) U/L ALT 24 (12-78) U/L Alkaline Phosphatase 127 H (46-116) U/L Creatine Kinase 77 (39-308) U/L Troponin I (0.000-0.056) ng/ml NT-Pro-B Natriuret Pep 168 H (0-125) pg/ml Serum Total Protein 7.0 (6.4-8.2) gm/dL Albumin 3.4 (3.4-5.0) g/dL - Progress Progress: improved, re-examined Air Movement: good Progress Note: 02/21/17 20:59 pt CP resolved in ER - pt advised of limitations of testing performed in this setting tonight and that undetected cardiac and other serious pathology may still be evolving and for need ofr admission for monitoring and further w/u and he declines at this time preferring release to f/u PCP and return meantime if symptoms recure - he has normal mental status and the capacity to make this decision- it is also reasonable since he has primarily the respiratory infectious symptoms as an explanation for all symptoms; 02/21/17 21:10 improved after resp tx and requesting extra one fo rthe road and will comply; Blood Culture(s) Obtained: No Antibiotics given: Yes Counseled pt/family regarding: lab results, diagnosis, need for follow-up, rad results - Departure Time of Disposition: 21:03 Departure Disposition: Home Clinical Impression: RLL nodule, COPD exacerbation Condition: Good Critical Care Time: No Referrals: DOCTOR,NO FAMILY [Primary Care Provider] - Instructions: Chronic Obstructive Pulmonary Disease Additional Instructions: We cannot exclude a heart problem although it does not fit your current clinical picture and followup should be with your DrFrank for further work up especially since there is some elevated test sometimes associated with heart disease; There is a right lower lung nodule requiring followup with your Dr. for further testing since that sometimes could be an early cancer. Return meantime if further symptoms and see your dr for your lungs , consider also quitting smoking.
[2017-02-21] MEDS ORDERED: Zosyn 3.375GM/100 Ml D5W 3.375 GM/100 ML IVPB IV ONE ×2 (19:52→20:16)
[2017-02-21] MEDS ORDERED: ROCEPHIN 1 Gm-D5w 50 ml Bag** 1 G/50 ML IVPB IV STA (19:53)
[2017-02-21] MEDS ORDERED: BABY ASPIRIN 81 MG CHEW ONE (19:55)
[2017-02-21] MEDS ORDERED: solu-MEDROL 125 MG ONE (19:56)
[2017-02-21] MEDS ORDERED: Sodium Chloride 0.9% 1000 ML 1,000 ML ONE (19:56)
[2017-02-21] MEDS ORDERED: Sodium Chloride 0.9% 1000 ML 1,000 ML IV SCH (20:00)
[2017-02-21 20:05] LABS: BASOPHIL % 0.4 % (0.0-0.4); Eosinophil % 5.7 % (0.00-5.0); Granulocytes % 52.7 % (36.0-66.0); Lymphocytes % 32.6 % (24.0-44.0); Mean Cell Volume 95.2 fl (78-100); Mean Corpuscular Hemoglobin 30.2 pg (26-32); Mean Platelet Volume 10.5 fl (6-9.5); Monocytes % 8.6 % (0.0-12.0); Platelet Count 223 K/mm3 (150-450); Red Blood Count 4.77 M/mm3 (4.1-5.6); White Blood Count 8.2 K/mm3 (4.0-10.5)
[2017-02-21 20:21] LABS: ALBUMIN 3.4 g/dL (3.4-5.0); ALKALINE PHOSPHATASE 127 U/L (46-116); ANION GAP 11.7 MEQ/L (5-15); BLOOD UREA NITROGEN 11 mg/dL (9-20); CHLORIDE 104 mEq/L (98-107); Carbon Dioxide 31.7 mEq/L (21-32); Glucose 90 MG/DL (70-110); Potassium 4.3 mEq/L (3.5-5.1); SGOT/AST 20 U/L (15-37); SGPT/ALT 24 U/L (12-78); SODIUM 143 mEq/L (136-145)
[2017-02-21] MEDS ORDERED: ROCEPHIN 1 Gm-D5w 50 ml Bag** 1 G/50 ML IVPB IV ONE (20:21)
[2017-02-21] MEDS ORDERED: Zithromax 250 MG TABLET PO ONE (21:12)
[2017-02-21] MEDS ORDERED: Zithromax 250 MG TABLET ONE (21:38)
[2017-02-21 22:03] VITALS: BP 137/83; PULSE 88; O2SAT 95
--- NOTE | 2017-02-22 09:02 | XRAY ---
Indication: Short of breath. COPD. Comparison: August 25, 2016. PA/lateral chest unchanged again hyperinflated and clear with previous CABG surgery. Heart is not enlarged. No new/acute findings.
== END 2017-02-21 22:13 | disposition home or self-care (01) ==
LOC: ED 19:27
DX: R91.1 Solitary pulmonary nodule (principal); J44.1 Chronic obstructive pulmonary disease with (acute) exacerbation; Z95.1 Presence of aortocoronary bypass graft; R07.9 Chest pain, unspecified; R05 Cough; R06.02 Shortness of breath; Z79.01 Long term (current) use of anticoagulants; I25.2 Old myocardial infarction
CPT/HCPCS: 36000; 36415; 71020; 80053; 82550; 83605; 83880; 84484; 85025; 85379; 87070; 87077; 87186; 87631; 93005; 93041; 94640; 96374; 99283; J0696; J2543; J2930; A9270-GY

== ENCOUNTER 2017-04-12 15:25 | Observation (INO) | payer OTHER ==
[2017-04-12] MEDS ORDERED: DUONEB 0.5-3 MG/3 ml Neb IH ONE ×2 (16:07→16:38)
[2017-04-12] MEDS ORDERED: solu-MEDROL 125 MG IV ONE (16:07)
[2017-04-12] MEDS ORDERED: Sodium Chloride 0.9% 1000 ML 1,000 ML IV SCH (16:15)
--- NOTE | 2017-04-12 16:16 | ERPHSYRPT ---
- History of Present Illness Time Seen by Provider: 04/12/17 16:01 Source: patient Physician History: CC: cough Hx: 56 y/o patient of Dr Segura and Dr Lyubov Power. He has hx of COPD, smokes, and uses nebs. He has 3 day hx of increased cough, phlegm, muscle aches, headache. No known fevers. No V/D. Used nebs at home without improvement. He had CABG one year ago. Not diabetic. Timing/Duration: day(s) (3) Severity of Dyspnea-Max: moderate Severity of Dyspnea-Current: moderate Allergies/Adverse Reactions: naproxen Adverse Reaction (Verified 04/12/17 16:01) Home Medications: Clopidogrel Bisulfate 75 mg [PLAVIX 75 MG Tablet] 75 mg PO DAILY 07/25/16 [History] Albuterol Sulfate [Ventolin Hfa] 90 mcg IH UD 04/12/17 [History] Atorvastatin Calcium [Lipitor] 40 mg PO DAILY 04/12/17 [History] Lisinopril [Zestril] 2.5 mg PO DAILY 04/12/17 [History] Metoprolol Tartrate [Metoprolol Tartrate] 50 mg PO BID 04/12/17 [History] Hx Tetanus, Diphtheria Vaccination/Date Given: Yes Hx Influenza Vaccination/Date Given: Yes Hx Pneumococcal Vaccination/Date Given: Yes - Review of Systems Constitutional: Fatigue, Malaise, No Fever, No Chills Eyes: No Symptoms Ears, Nose, & Throat: No Symptoms Respiratory: Cough, No Dyspnea Cardiac: Chest Pain (with coughing), Edema (chronic left leg post CABG) Abdominal/Gastrointestinal: No Abdominal Pain, No Nausea, No Vomiting, No Diarrhea Skin: No Rash Neurological: No Headache All Other Systems: Reviewed and Negative - Past Medical History Pertinent Past Medical History: Yes Neurological History: No Pertinent History ENT History: No Pertinent History Cardiac History: Myocardial Infarction (PR) Respiratory History: COPD Musculoskeletal History: No Pertinent History GI Medical History: No Pertinent History History: No Pertinent History Psycho-Social History: No Pertinent History Male Reproductive Disorders: No Pertinent History - Past Surgical History Past Surgical History: Yes Cardiac: CABG Gastrointestinal: No Pertinent History Genitourinary: No Pertinent History Musculoskeletal: No Pertinent History Male Surgical History: No Pertinent History - Social History Smoking Status: Current every day smoker How long have you smoked: 40 yrs Exposure to second hand smoke: No Drug Use: marijuana Patient Lives Alone: No - Nursing Vital Signs Nursing Vital Signs: Initial Vital Signs Temperature 97.4 F 04/12/17 15:50 Pulse Rate 72 04/12/17 15:50 Respiratory Rate 18 04/12/17 15:50 Blood Pressure 141/75 04/12/17 15:50 O2 Sat by Pulse Oximetry 99 04/12/17 15:50 Pain Scale Pain Intensity 10 - Physical Exam General Appearance: alert Eye Exam: PERRL/EOMI Neck Exam: supple Respiratory Exam: rhonchi, wheezing, other (loose cough), No respiratory distress Cardiovascular/Chest Exam: regular rate/rhythm Abdominal/Gastrointestinal Exam: soft, No tenderness, No distention Extremity Exam: swelling (left leg mild post vein harvesting, no redness or calf tenderness) Neurologic Exam: alert, oriented x 3, cooperative, sensation nml, No motor deficits Skin Exam: warm, dry, No rash SpO2 Interpretation: normal SpO2: 97 Oxygen Delivery: Room Air - Course Nursing assessment & vital signs reviewed: Yes EKG Interpreted by Me: RATE (66), Sinus Rhythm, NORMAL AXIS, NORMAL INTERVALS ( QTc 430), Non-specific ST Changes - Radiology Exams cxr X-ray Interpretation: Reviewed by me, No Pneumonia (post CABG) Ordered Tests: Active Orders 24 hr Category Date Time Status EKG-ER Only STAT Care 04/12/17 16:07 Active IV Insertion STAT Care 04/12/17 16:07 Active Pulse Oximetry (ED) STAT Care 04/12/17 16:07 Active Rectal Temperature STAT Care 04/12/17 16:07 Active CHEST 2 VIEWS (PA AND LAT) Stat Exams 04/12/17 16:08 Taken BLOOD CULTURE Stat Lab 04/12/17 16:28 Received CBC W DIFF Stat Lab 04/12/17 16:25 Completed CMP Stat Lab 04/12/17 16:25 Completed Lactic Acid Stat Lab 04/12/17 17:00 Completed VENOUS BLOOD GAS Stat Lab 04/12/17 17:00 Completed Respiratory Nebulizer STAT RT 04/12/17 16:08 Active Respiratory Nebulizer STAT RT 04/12/17 17:07 Active Medication Summary Generic Name Dose Route Start Last Admin Trade Name Freq PRN Reason Stop Dose Admin Sodium Chloride 1,000 mls @ 100 mls/hr 04/12/17 16:15 04/12/17 16:48 Sodium Chloride 0.9% 1000 Ml IV 05/12/17 16:14 100 mls/hr .Q10H ANDREW Administration Ceftriaxone Sodium/Dextrose 1 g in 50 mls @ 100 mls/hr 04/12/17 17:08 17:14 Rocephin 1 Gm-D5w 50 Ml Bag IV 04/12/17 17:37 100 mls/hr STAT STA Administration Azithromycin 500 mg in 250 mls @ 250 mls/hr 04/12/17 17:08 Zithromax 500 Mg/ 250 Ml Nacl Premix IV 04/12/17 18:07 STAT STA Discontinued Medications Generic Name Dose Route Start Last Admin Trade Name Pedro PRN Reason Stop Dose Admin Albuterol Sulfate 2.5 mg 04/12/17 17:07 Proventil 2.5 Mg/3 Ml Neb IH 04/12/17 17:08 STAT ONE Albuterol Sulfate Confirm 04/12/17 17:21 Proventil 2.5 Mg/3 Ml Neb Administered 04/12/17 17:22 Dose 2.5 mg IH .STK-MED ONE Albuterol/Ipratropium 3 ml 04/12/17 16:07 04/12/17 16:40 Duoneb 0.5-3 Mg/3 Ml Neb IH 04/12/17 16:08 3 ml STAT ONE Administration Albuterol/Ipratropium Confirm 04/12/17 16:38 Duoneb 0.5-3 Mg/3 Ml Neb Administered 04/12/17 16:39 Dose 3 ml IH .STK-MED ONE Ceftriaxone Sodium/Dextrose Confirm 04/12/17 17:14 Rocephin 1 Gm-D5w 50 Ml Bag Administered 04/12/17 17:15 Dose 1 g in 50 mls @ ud IV .STK-MED ONE Methylprednisolone Sodium Succinate 125 mg 04/12/17 16:07 04/12/17 16:48 Solu-Medrol 125 Mg IV 04/12/17 16:08 125 mg STAT ONE Administration Methylprednisolone Sodium Succinate Confirm 04/12/17 16:44 Solu-Medrol 125 Mg Administered 04/12/17 16:45 Dose 125 mg .ROUTE .STK-MED ONE Lab/Rad Data: Laboratory Result Diagrams 04/12/17 16:25 04/12/17 16:25 Laboratory Results 04/12/17 04/12/17 04/12/17 Range/Units 17:00 16:25 16:25 WBC 7.2 (4.0-10.5) K/mm3 RBC 4.98 (4.1-5.6) M/mm3 Hgb 15.1 (12.5-18.0) gm/dl Hct 47.5 (42-50) % MCV 95.4 (78-100) fl MCH 30.3 (26-32) pg MCHC 31.8 L (32-36) g/dl RDW 13.4 (11.5-14.0) % Plt Count 237 (150-450) K/mm3 MPV 10.2 H (6-9.5) fl Gran % 46.7 (36.0-66.0) % Lymphocytes % 41.1 (24.0-44.0) % Monocytes % 8.4 (0.0-12.0) % Eosinophils % 3.7 (0.00-5.0) % Basophils % 0.1 (0.0-0.4) % Basophils # 0.01 (0-0.4) VBG pH 7.28 L (7.32-7.42) VBG pCO2 at Pat Temp 70 H* (42-55) mm/Hg VBG pO2 at Pat Temp 17 L (25-40) mm/Hg VBG HCO3 32.9 H* (22-28) meq/L VBG O2 Sat (Jennifer) 27.9 L (95-100) VBG Base Excess 3.5 H (-2.0-2.0) VBG Hemoglobin 15.6 VBG Carboxyhemoglobin 5.4 (0.0-6.9) % T HGB POC Potassium 4.5 (3.5-5.1) Sodium 142 (136-145) mEq/L Potassium 4.4 (3.5-5.1) mEq/L Chloride 106 (98-107) mEq/L Carbon Dioxide 31.2 (21-32) mEq/L Anion Gap 9.6 (5-15) MEQ/L BUN 8 L (9-20) mg/dL Creatinine 0.96 (0.55-1.30) mg/dl Estimated GFR > 60 ML/MIN Glucose 104 (70-110) MG/DL Lactic Acid 1.4 (0.4-2.0) Calcium 8.8 (8.5-10.1) mg/dL Total Bilirubin 0.20 (0.2-1.0) mg/dL AST 16 (15-37) U/L ALT 19 (12-78) U/L Alkaline Phosphatase 110 (46-116) U/L Serum Total Protein 7.0 (6.4-8.2) gm/dL Albumin 3.6 (3.4-5.0) g/dL - Progress Progress Note: 04/12/17 17:29 Feels some better after meds. pH shows some hypercapnea. No resp distress. Called Dr Marta Edwards (oc) and will place in observation. Counseled pt/family regarding: lab results, diagnosis, need for follow-up, rad results, smoking cessation - Departure Time of Disposition: 17:30 Departure Disposition: Home Clinical Impression: COPD exacerbation Condition: Fair Critical Care Time: No
[2017-04-12] MEDS ORDERED: Sodium Chloride 0.9% 1000 ML 1,000 ML ONE (16:44)
[2017-04-12] MEDS ORDERED: solu-MEDROL 125 MG ONE (16:44)
[2017-04-12 16:46] LABS: BASOPHIL % 0.1 % (0.0-0.4); Basophil (Absolute #) 0.01 (0-0.4); Eosinophil % 3.7 % (0.00-5.0); Eosinophil (Absolute #) 0.27 (0-0.5); Granulocyte Absolute (ANC) 3.36 (1.4-6.9); Granulocytes % 46.7 % (36.0-66.0); Hematocrit 47.5 % (42-50); Hemoglobin 15.1 gm/dl (12.5-18.0); Lymphocyte (Absolute #) 2.97 (1.0-4.6); Lymphocytes % 41.1 % (24.0-44.0); Mean Cell Volume 95.4 fl (78-100); Mean Corpuscular Hemoglobin 30.3 pg (26-32); Mean Corpuscular Hgb Concent. 31.8 g/dl (32-36); Mean Platelet Volume 10.2 fl (6-9.5); Monocyte (Absolute #) 0.61 (0.0-1.3); Monocytes % 8.4 % (0.0-12.0); Platelet Count 237 K/mm3 (150-450); Red Blood Count 4.98 M/mm3 (4.1-5.6); Red Cell Distribution Width 13.4 % (11.5-14.0); White Blood Count 7.2 K/mm3 (4.0-10.5)
[2017-04-12 17:02] LABS: Lactic Acid 1.4 (0.4-2.0); VBG BASE EXCESS 3.5 (-2.0-2.0); VBG CARBOXYHEMOGLOBIN 5.4 % T HGB (0.0-6.9); VBG HCO3- 32.9 meq/L (22-28); VBG HEMOGLOBIN 15.6; VBG O2 SATURATION 27.9 (95-100); VBG POTASSIUM 4.5 (3.5-5.1); VBG pH 7.28 (7.32-7.42)
[2017-04-12] MEDS ORDERED: PROVENTIL 2.5 MG/3 ML NEB IH ONE ×2 (17:07→17:21)
[2017-04-12] MEDS ORDERED: Zithromax 500 MG/ 250 ML NaCl Premix 500 MG/250 ML IVPB IV STA (17:08)
[2017-04-12] MEDS ORDERED: ROCEPHIN 1 Gm-D5w 50 ml Bag** 1 G/50 ML IVPB IV STA (17:08)
[2017-04-12] MEDS ORDERED: ROCEPHIN 1 Gm-D5w 50 ml Bag** 1 G/50 ML IVPB IV ONE (17:14)
[2017-04-12 17:16] LABS: ALBUMIN 3.6 g/dL (3.4-5.0); ALKALINE PHOSPHATASE 110 U/L (46-116); ANION GAP 9.6 MEQ/L (5-15); BLOOD UREA NITROGEN 8 mg/dL (9-20); CHLORIDE 106 mEq/L (98-107); Calcium 8.8 mg/dL (8.5-10.1); Carbon Dioxide 31.2 mEq/L (21-32); Creatinine 1 0.96 mg/dl (0.55-1.30); EST GLOMERULAR FILTRATION RATE > 60 ML/MIN; Glucose 104 MG/DL (70-110); Potassium 4.4 mEq/L (3.5-5.1); SGOT/AST 16 U/L (15-37); SGPT/ALT 19 U/L (12-78); SODIUM 142 mEq/L (136-145)
[2017-04-12 17:30] LABS: INFLUENZA A NEGATIVE (NEGATIVE); INFLUENZA B NEGATIVE (NEGATIVE); RESPIRATORY SYNCTIAL VIRUS NEGATIVE (Negative)
[2017-04-12] MEDS ORDERED: Zithromax 500 MG/ 250 ML NaCl Premix 500 MG/250 ML IVPB IV ONE (17:48)
[2017-04-12] MEDS: DUONEB 0.5-3 MG/3 ml Neb IH SCH ×2 (20:33→23:39)
--- NOTE | 2017-04-12 21:37 | XRAY ---
Indication: Cough. Comparison: February 21, 2017. PA/lateral chest remains hyperinflated and clear. Heart is not enlarged again with previous CABG surgery. Bony thorax intact. Impression: Stable nonacute hyperinflated chest.
[2017-04-12] MEDS: ZOCOR 20MG PO SCH (22:02)
[2017-04-12] MEDS: Lopressor 50 MG PO SCH (22:02)
[2017-04-13] MEDS: solu-MEDROL 125 MG IV SCH ×5 (00:14→17:48)
[2017-04-13] MEDS: Sodium Chloride 0.9% 1000 ML 1,000 ML IV SCH ×2 (03:00→22:55)
[2017-04-13] MEDS: DUONEB 0.5-3 MG/3 ml Neb IH SCH ×6 (03:38→23:27)
[2017-04-13] MEDS ORDERED: solu-MEDROL 125 MG ONE (06:07)
[2017-04-13] MEDS ORDERED: FLUCELVAX QUAD 2017-2018 SYR IM ONE (10:00)
--- NOTE | 2017-04-13 10:15 | PCM.HP ---
History of Present Illness - Chief Complaint Chief Complaint: Shortness of Breath Date: 04/13/17 History of Present Illness: is a 56 year old male. 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 He came home and has been too weak for the last week sitting up in bed at night to sleep using his grandsons's nebulizer and coughing and weakness. he has been drinking some mostly caffeinated beverages. he continues to smoke down to 1ppd from 2ppd plus prior to his cabg 1 year ago. he does not follow up with his liner installer or respite provider. - Review of Systems Constitutional: Chills, Fatigue, Lethargy, No Fever Eyes: No Symptoms Ears, Nose, & Throat: No Symptoms Respiratory: Cough, Short Of Breath, Wheezing Cardiac: No Chest Pain, No Edema, No Syncope Abdominal/Gastrointestinal: No Abdominal Pain, No Nausea, No Vomiting, No Diarrhea Genitourinary Symptoms: No Dysuria Musculoskeletal: No Back Pain, No Neck Pain Skin: No Rash Neurological: No Dizziness, No Focal Weakness, No Sensory Changes Psychological: No Symptoms Endocrine: No Symptoms Hematologic/Lymphatic: No Symptoms Immunological/Allergic: No Symptoms Medications & Allergies Home Medications: Home Medication List Clopidogrel Bisulfate 75 mg [PLAVIX 75 MG Tablet] 75 mg PO DAILY 07/25/16 [History Confirmed 04/12/17] Albuterol 2.5 mg/3 ml Neb [Proventil 2.5 mg/3 ml Neb] 2.5 mg IH Q4HPRN PRN 04/12/17 [History Confirmed 04/12/17] Albuterol Sulfate [Ventolin Hfa] 90 mcg IH DAILY PRN PRN 04/12/17 [History Confirmed 04/12/17] Atorvastatin Calcium [Lipitor] 40 mg PO HS 04/12/17 [History Confirmed 04/12/17] Lisinopril [Zestril] 2.5 mg PO DAILY 04/12/17 [History Confirmed 04/12/17] Metoprolol Tartrate [Metoprolol Tartrate] 50 mg PO BID 04/12/17 [History Confirmed 04/12/17] Allergies/Adverse Reactions: Allergies Allergy/AdvReac Type Severity Reaction Status Date / Time naproxen AdvReac Verified 04/12/17 16:01 - Past Medical History Past Medical History: Yes Neurological History: No Pertinent History ENT History: No Pertinent History Cardiac History: Myocardial Infarction ([place]) Respiratory History: COPD Musculoskelatal History: No Pertinent History GI Medical History: No Pertinent History History: No Pertinent History Pyscho-Social History: No Pertinent History Male Reproductive Disorders: No Pertinent History Comment: Pt reports that partner reported to him that she tested positive for an STD but he is unsure which one it is. - Past Surgical History Past Surgical History: Yes Cardiac History: CABG GI Surgical History: No Pertinent History Genitourinary Surgical Hx: No Pertinent History Musculskeletal Surgical Hx: No Pertinent History Male Surgical History: No Pertinent History Other Surgical History: Pt reports having CABG in March of this year. - Social History Smoking Status: Current every day smoker How long have you smoked: 48 years Exposure to second hand smoke: Yes Alcohol: None Drug Use: marijuana - Physical Exam Vital Signs: Vital Signs - 24 hr Temp Pulse Resp BP Pulse Ox 04/13/17 08:00 18 04/13/17 07:27 97.8 F 75 18 104/58 93 L 04/13/17 07:00 78 18 96 04/13/17 04:00 97.8 F 75 16 115/55 94 L 04/13/17 03:48 69 18 95 04/13/17 00:00 98.0 F 82 18 124/59 95 04/12/17 23:00 80 18 93 L 04/12/17 20:00 97.8 F 79 16 108/54 92 L 04/12/17 19:00 78 20 96 04/12/17 18:07 98.8 F 72 14 119/71 97 04/12/17 17:31 97 04/12/17 16:58 72 18 119/71 99 04/12/17 16:41 98.8 F 99 04/12/17 16:40 70 18 97 04/12/17 15:50 97.4 F 72 20 141/75 99 General Appearance: mild distress, alert Neurologic Exam: alert, oriented x 3, cooperative, normal mood/affect, nml cerebellar function, nml station & gait, sensation nml, No motor deficits Eye Exam: PERRL/EOMI, eyes nml inspection Ears, Nose, Throat Exam: moist mucous membranes Neck Exam: normal inspection, non-tender, supple, full range of motion Respiratory Exam: wheezing, No respiratory distress Cardiovascular Exam: regular rate/rhythm, normal heart sounds, normal peripheral pulses Gastrointestinal/Abdomen Exam: soft, normal bowel sounds, No tenderness, No mass Back Exam: normal inspection, normal range of motion, No CVA tenderness, No vertebral tenderness Extremity Exam: normal inspection, normal range of motion, pelvis stable Skin Exam: normal color, warm, dry, No rash Lymphatic Exam: No adenopathy Results - Other Procedures and Tests Respiratory Therapy 04/12/17 19:00 Respiratory Nebulizer Q4H Assessment/Plan (1) COPD exacerbation Current Visit: Yes Status: Acute Assessment & Plan: still significant wheezing poor air movement will continue iv steroids abx nebs repeat am lab hopeful for home in the am will start controller meds on discharge Code(s): J44.1 - CHRONIC OBSTRUCTIVE PULMONARY DISEASE W (ACUTE) EXACERBATION (2) Acute respiratory acidosis Current Visit: Yes Status: Acute Code(s): E87.2 - ACIDOSIS (3) Coronary artery disease Current Visit: Yes Status: Chronic Code(s): I25.10 - ATHSCL HEART DISEASE OF [place] CORONARY ARTERY W/O ANG PCTRS (4) Tobacco abuse Current Visit: Yes Status: Chronic Code(s): Z72.0 - TOBACCO USE
[2017-04-13] MEDS ORDERED: PLAVIX 75 MG Tablet PO SCH (11:00)
[2017-04-13] MEDS ORDERED: PROVENTIL 2.5 MG/3 ML NEB IH PRN (11:07)
[2017-04-13] MEDS ORDERED: Ventolin Hfa MDI IH PRN (11:07)
[2017-04-13] MEDS ORDERED: PROVENTIL COMMON CANISTER IH PRN (11:09)
[2017-04-13] MEDS: Lopressor 50 MG PO SCH ×2 (11:18→22:50)
[2017-04-13] MEDS ORDERED: Zestril 5 MG PO SCH (12:00)
[2017-04-13] MEDS ORDERED: ROCEPHIN 1 Gm-D5w 50 ml Bag** 1 G/50 ML IVPB IV SCH (17:00)
[2017-04-13] MEDS ORDERED: Zithromax 500 MG/ 250 ML NaCl Premix 500 MG/250 ML IVPB IV SCH (18:00)
[2017-04-13] MEDS: ZOCOR 20MG PO SCH (22:50)
[2017-04-14] MEDS: solu-MEDROL 125 MG IV SCH ×2 (01:12→06:20)
[2017-04-14] MEDS: DUONEB 0.5-3 MG/3 ml Neb IH SCH ×2 (03:29→06:30)
[2017-04-14 05:30] LABS: VBG CARBOXYHEMOGLOBIN 2.7 % T HGB (0.0-6.9); VBG HCO3- 27.1 meq/L (22-28); VBG HEMOGLOBIN 13.7; VBG O2 SATURATION 54.3 (95-100); VBG POTASSIUM 4.7 (3.5-5.1); VBG pH 7.36 (7.32-7.42)
[2017-04-14 05:54] LABS: Hematocrit 41.7 % (42-50); Hemoglobin 13.1 gm/dl (12.5-18.0); Mean Cell Volume 95.9 fl (78-100); Mean Corpuscular Hemoglobin 30.1 pg (26-32); Mean Corpuscular Hgb Concent. 31.4 g/dl (32-36); Mean Platelet Volume 10.6 fl (6-9.5); Platelet Count 247 K/mm3 (150-450); Red Blood Count 4.35 M/mm3 (4.1-5.6); Red Cell Distribution Width 13.3 % (11.5-14.0); White Blood Count 18.8 K/mm3 (4.0-10.5)
[2017-04-14 06:19] LABS: BLOOD UREA NITROGEN 11 mg/dL (9-20); CHLORIDE 107 mEq/L (98-107); Calcium 8.7 mg/dL (8.5-10.1); Carbon Dioxide 27.6 mEq/L (21-32); EST GLOMERULAR FILTRATION RATE > 60 ML/MIN; Glucose 165 MG/DL (70-110); Potassium 4.6 mEq/L (3.5-5.1); SODIUM 141 mEq/L (136-145)
[2017-04-14 07:10] VITALS: BP 118/60; PULSE 80; O2SAT 95
--- NOTE | 2017-04-14 08:02 | PCM.DS ---
Discharge Summary Date of Admission: 04/12/17 18:06 Date of Discharge: 04/14/2017 Admitting Physician: DREA WRIGHT Primary Care Provider: NO FAMILY DOCTOR Allergies Allergies naproxen Adverse Reaction (Verified 04/12/17 16:01) Hospital Summary - Hospital Course Hospital Course: Mr. Littlejohn has a long heavy tobacco abuse hx with copd and coronary artery disease s/p cabg X 3 1 year ago. He is noncompliant for the most part with outpatient f/u but is taking his cardiac medications but is almost out of refills he thinks. He had been having worsening cough and dyspnea for 1 week and using his grandsons nebulizer at home unable to move without significant shortness of breath. Eventually his daughter made him go to ED due to how bad he looked and was breathing. he was found to have acute respiratory acidosis and improved on nebs steroids and antibiotics. these were continued. he was counseled on smoking cessation and discussed maintenance therapy with inhaled corticosteroid and LABA given severity of his symptoms and starting on breo at discharge. He was d/c with steroid taper and abx and will f/u with me in 1 week to establish outpatient care. - Vitals & Intake/Output Vital Signs: Vital Signs Temperature 97.8 F 04/14/17 07:09 Pulse Rate 80 04/14/17 07:09 Respiratory Rate 18 04/14/17 07:09 Blood Pressure 118/60 04/14/17 07:09 O2 Sat by Pulse Oximetry 95 04/14/17 07:09 Intake & Output: Intake & Output 04/11/17 04/12/17 04/13/17 04/14/17 11:59 11:59 11:59 11:59 Intake Total 1837 2735 Balance 1837 2735 Weight 76.8 kg 76.8 kg - Lab Result Diagrams: 04/14/17 05:10 04/14/17 05:10 Lab Results-Last 24 Hrs: Lab Results-Last 24 Hours 04/14/17 04/14/17 04/14/17 Range/Units 05:10 05:10 05:25 WBC 18.8 H (4.0-10.5) K/mm3 RBC 4.35 (4.1-5.6) M/mm3 Hgb 13.1 (12.5-18.0) gm/dl Hct 41.7 L (42-50) % MCV 95.9 (78-100) fl MCH 30.1 (26-32) pg MCHC 31.4 L (32-36) g/dl RDW 13.3 (11.5-14.0) % Plt Count 247 (150-450) K/mm3 MPV 10.6 H (6-9.5) fl VBG pH 7.36 (7.32-7.42) VBG pCO2 at Pat Temp 48 (42-55) mm/Hg VBG pO2 at Pat Temp 25 (25-40) mm/Hg VBG HCO3 27.1 (22-28) meq/L VBG O2 Sat (Jennifer) 54.3 L (95-100) VBG Base Excess 1.0 (-2.0-2.0) VBG Hemoglobin 13.7 VBG Carboxyhemoglobin 2.7 (0.0-6.9) % T HGB POC Potassium 4.7 (3.5-5.1) Sodium 141 (136-145) mEq/L Potassium 4.6 (3.5-5.1) mEq/L Chloride 107 (98-107) mEq/L Carbon Dioxide 27.6 (21-32) mEq/L Anion Gap 11.0 (5-15) MEQ/L BUN 11 (9-20) mg/dL Creatinine 0.90 (0.55-1.30) mg/dl Estimated GFR > 60 ML/MIN Glucose 165 H (70-110) MG/DL Calcium 8.7 (8.5-10.1) mg/dL - Procedures and Test Procedures and Tests throughout Hospitalization: Therapy Orders & Screens 04/12/17 19:00 Respiratory Nebulizer Q4H Comment: Diagnosis: Shortness of Breath Discharge Exam General Appearance: no apparent distress, alert Neurologic Exam: alert, oriented x 3, cooperative, normal mood/affect, nml cerebellar function, sensation nml, No motor deficits Skin Exam: normal color, warm, dry Eye Exam: PERRL, EOMI, eyes nml inspection Ears, Nose, Throat Exam: normal ENT inspection, pharynx normal, moist mucous membranes Neck Exam: normal inspection, non-tender, supple, full range of motion Respiratory Exam: wheezing (mild), No respiratory distress Cardiovascular Exam: regular rate/rhythm, normal heart sounds Gastrointestinal/Abdomen Exam: soft, No tenderness, No mass Extremity Exam: normal inspection, normal range of motion Back Exam: normal inspection, normal range of motion, No CVA tenderness, No vertebral tenderness Male Genitalia Exam: deferred Rectal Exam: deferred Final Diagnosis/Problem List - Final Discharge Diagnosis/Problem (1) COPD exacerbation Status: Acute (2) Acute respiratory acidosis Status: Acute (3) Coronary artery disease Status: Chronic (4) Tobacco abuse Status: Chronic - Discharge Discharge Date: 04/14/17 Disposition: Home, Self-Care Condition: Stable Prescriptions: New Fluticasone/Vilanterol [Breo Ellipta 200-25 Mcg INH] 1 each IH DAILY #1 blst.w.dev Prednisone 10 mg [Deltasone 10 mg] 10 mg PO UD #34 tablet Doxycycline Hyclate 100 mg PO BID #12 capsule Continue Atorvastatin Calcium [Lipitor] 40 mg PO HS #30 tablet Metoprolol Tartrate 50 mg PO BID #60 tablet Clopidogrel Bisulfate 75 mg [PLAVIX 75 MG Tablet] 75 mg PO DAILY #30 tablet Albuterol 2.5 mg/3 ml Neb [Proventil 2.5 mg/3 ml Neb] 2.5 mg IH Q4HPRN PRN #100 neb PRN Reason: Shortness Of Breath/Wheezing Lisinopril [Zestril] 2.5 mg PO DAILY #30 tablet Changed Albuterol Sulfate [Ventolin Hfa] 1 puff IH Q4H PRN #1 inh PRN Reason: Shortness Of Breath Instructions: Gallstones, Coronary Heart Disease, Chest Pain, Exacerbation of COPD, Quitting Smoking Additional Instructions: refills were sent to [facility] Follow up with: DREA WRIGHT [ACTIVE STAFF] - 04/21/17 10:45 am
== END 2017-04-14 09:25 | disposition home or self-care (01) ==
LOC: ED 15:25 → MED SURG 18:06
PROVIDERS: ADMIT Family Medicine; ATTEND Family Medicine
DX: J44.1 Chronic obstructive pulmonary disease with (acute) exacerbation (principal); E87.2 Acidosis; I25.810 Atherosclerosis of coronary artery bypass graft(s) without angina pectoris; Z72.0 Tobacco use; I25.2 Old myocardial infarction
CPT/HCPCS: 36000; 36415; 71046; 80048; 80053; 82805; 83605; 85025; 85027; 87040; 87631; 93005; 94640; 94760; 96360; 96361; 96365; 96367; 96374; 99285; G0008; G0378; J0456; J0696; J2930; 90682; A9270-GY

== ENCOUNTER 2017-04-18 13:51 | Inpatient (IN) | payer OTHER ==
[2017-04-18] MEDS ORDERED: Sodium Chloride 0.9% 1000 ML 1,000 ML IV STA (13:58)
[2017-04-18] MEDS ORDERED: DUONEB 0.5-3 MG/3 ml Neb IH ONE ×3 (13:58→16:25)
[2017-04-18] MEDS ORDERED: FEVERALL 650 MG PR STA (13:58)
[2017-04-18] MEDS ORDERED: Pepcid 20 MG VIAL IV ONE ×2 (13:58→14:06)
[2017-04-18] MEDS ORDERED: Zosyn 3.375GM/100 Ml D5W 3.375 GM/100 ML IVPB IV STA (13:59)
[2017-04-18] MEDS ORDERED: Sodium Chloride 0.9% 1000 ML 1,000 ML ONE (14:02)
[2017-04-18 14:03] LABS: Lactic Acid 2.3 (0.4-2.0)
[2017-04-18] MEDS ORDERED: FEVERALL 650 MG ONE (14:06)
[2017-04-18 14:07] LABS: A-aADO2 374; ABG HEMOGLOBIN 17.3; ARTERIAL BLD GAS O2 SATURATION 100.1 % (95-100); ARTERIAL BLOOD GAS BASE EXCESS 6.9 (-2.0-2.0); ARTERIAL BLOOD GAS FIO2 80 %; ARTERIAL BLOOD GAS PCO2 38 mmHg (35-45); ARTERIAL BLOOD GAS PO2 149 mmHg (75-100); ARTERIAL BLOOD GAS pH 7.51 (7.35-7.45); CARBOXYHEMOGLOBIN 2.6 % THgb (0.0-6.9); HCO3- 30.3 (22-28); HGB O2 SAT 96.7 g/dF (94-100); Methhemoglobin 0.9 % (1.4-1.5); paO2 pAO1 0.28
[2017-04-18] MEDS ORDERED: Zosyn 3.375GM/100 Ml D5W 3.375 GM/100 ML IVPB IV ONE (14:07)
[2017-04-18 14:08] LABS: ABG SITE RIGHT RADIAL; ALLEN TEST OK? YES
[2017-04-18 14:14] LABS: Hematocrit 49.7 % (42-50); Hemoglobin 16.1 gm/dl (12.5-18.0); Mean Cell Volume 91.7 fl (78-100); Mean Corpuscular Hemoglobin 29.7 pg (26-32); Mean Corpuscular Hgb Concent. 32.4 g/dl (32-36); Mean Platelet Volume 10.7 fl (6-9.5); Red Blood Count 5.42 M/mm3 (4.1-5.6); Red Cell Distribution Width 13.8 % (11.5-14.0); White Blood Count 9.5 K/mm3 (4.0-10.5)
--- NOTE | 2017-04-18 14:18 | XRAY ---
Indication: Short of breath. Comparison: April 12, 2017. Portable chest unchanged again hyperinflated and clear. Heart is not enlarged with again previous CABG surgery. No new/acute findings.
--- NOTE | 2017-04-18 14:24 | ERPHSYRPT ---
- History of Present Illness Time Seen by Provider: 04/18/17 13:56 Source: patient, EMS (gave Oxygen and solu medrol. Pt refused neb en route.) Patient Subjective Stated Complaint: Pt states "I have felt like crap since I left here. I cannot breath and I ache everywhere" Triage Nursing Assessment: Pt alert and oriented X 3, skin pwd. PT tachypnic, grunting. Speaks in one to two word sentences. warm to touch. Physician History: CC: short of air Hx: 56 y/o patient of Dr Hernandez/[facility] with hx of COPD. He was admitted earlier this week with acidosis and COPD exacerbation. Went home on doxycycline and prednisone. He states he was been worse since going home. He sat at the table all night unable to breath. His [facility] nurse called EMS and sent him here. He denies fever. He has malaise. He has cough with sputum. No vomiting. No chest pain. He was hypoxic with sats in 80's on EMS arrival. Severity of Dyspnea-Max: severe Severity of Dyspnea-Current: severe Allergies/Adverse Reactions: naproxen Adverse Reaction (Verified 04/12/17 16:01) Home Medications: Clopidogrel Bisulfate [Clopidogrel] 75 mg PO DAILY 04/18/17 [History] Fluticasone/Vilanterol [Breo Ellipta 200-25 Mcg INH] 1 puff IH DAILY 04/18/17 [ History] Hx Tetanus, Diphtheria Vaccination/Date Given: Yes Hx Influenza Vaccination/Date Given: Yes Hx Pneumococcal Vaccination/Date Given: Yes Immunizations Up to Date: Yes - Review of Systems Constitutional: Malaise, No Fever Eyes: No Symptoms Ears, Nose, & Throat: No Symptoms Respiratory: Cough, Dyspnea, Wheezing Cardiac: No Chest Pain Abdominal/Gastrointestinal: No Abdominal Pain, No Nausea, No Vomiting, No Diarrhea Skin: No Rash Neurological: No Headache All Other Systems: Reviewed and Negative - Past Medical History Pertinent Past Medical History: Yes Neurological History: No Pertinent History ENT History: No Pertinent History Cardiac History: Myocardial Infarction ([place]) Respiratory History: COPD Musculoskeletal History: No Pertinent History GI Medical History: No Pertinent History History: No Pertinent History Psycho-Social History: No Pertinent History Male Reproductive Disorders: No Pertinent History - Past Surgical History Past Surgical History: Yes Cardiac: CABG Gastrointestinal: No Pertinent History Genitourinary: No Pertinent History Musculoskeletal: No Pertinent History Male Surgical History: No Pertinent History Other Surgical History: Pt reports having CABG in March of this year. - Social History Smoking Status: Former smoker How long have you smoked: 48 years Exposure to second hand smoke: Yes Drug Use: marijuana Patient Lives Alone: No - Nursing Vital Signs Nursing Vital Signs: Initial Vital Signs Temperature 102.0 F 04/18/17 13:54 Pulse Rate 148 H 04/18/17 13:54 Respiratory Rate 28 H 04/18/17 13:54 Blood Pressure 160/93 04/18/17 13:54 O2 Sat by Pulse Oximetry 95 04/18/17 13:54 Pain Scale Pain Intensity 4 - Physical Exam General Appearance: severe distress (respiratory), alert Eye Exam: PERRL/EOMI Neck Exam: normal inspection, non-tender, supple Respiratory Exam: respiratory distress, diminished breath sounds, wheezing Cardiovascular/Chest Exam: normal heart sounds, regular rate/rhythm Abdominal/Gastrointestinal Exam: soft, No tenderness, No distention Extremity Exam: non-tender, normal range of motion, no calf tenderness, no pedal edema Neurologic Exam: alert, oriented x 3, cooperative, sensation nml, No motor deficits Skin Exam: warm, dry, No rash SpO2 Interpretation: normal SpO2: 96 Oxygen Delivery: High Flow - Course Nursing assessment & vital signs reviewed: Yes EKG Interpreted by Me: RATE (133), Sinus Tach, NORMAL AXIS, NORMAL INTERVALS ( QTc 456), NORMAL QRS, NORMAL ST-T - Radiology Exams cxr X-ray Interpretation: Teleradiologist Report (hyperinflation, no pneumonia) Ordered Tests: Active Orders 24 hr Category Date Time Status Flight/Transport Nurse STAT Care 04/18/17 13:57 Active Clean Catch Urine Specimen STAT Care 04/18/17 13:57 Active EKG-ER Only STAT Care 04/18/17 13:57 Active IV Insertion STAT Care 04/18/17 13:57 Active NPO (ED) STAT Care 04/18/17 13:58 Active Pulse Oximetry (ED) STAT Care 04/18/17 13:57 Active CHEST 1 VIEW (PORTABLE) Stat Exams 04/18/17 13:57 Completed ARTERIAL BLOOD GASES Stat Lab 04/18/17 13:57 Completed BLOOD CULTURE Stat Lab 04/18/17 14:20 Received CBC W DIFF Stat Lab 04/18/17 14:02 Completed CMP Stat Lab 04/18/17 14:02 Completed CULTURE,URINE Stat Lab 04/18/17 13:57 Ordered Lactic Acid Stat Lab 04/18/17 13:57 Results MAGNESIUM Stat Lab 04/18/17 14:02 Completed Manual Differential NC Stat Lab 04/18/17 14:02 Completed PROTIME WITH INR Stat Lab 04/18/17 14:02 Completed PTT Stat Lab 04/18/17 14:02 Completed TROPONIN Q3H Lab 04/18/17 14:15 Completed TROPONIN Q3H Lab 04/18/17 17:15 Ordered TROPONIN Q3H Lab 04/18/17 20:15 Ordered TROPONIN Q3H Lab 04/18/17 23:15 Ordered TROPONIN Q3H Lab 04/19/17 02:15 Ordered UA W/ MICROSCOPIC Stat Lab 04/18/17 13:57 Completed Oxygen High Flow High Flow 45 lpm RT 04/18/17 14:00 Active Respiratory Nebulizer STAT RT 04/18/17 13:58 Completed Medication Summary Discontinued Medications Generic Name Dose Route Start Last Admin Trade Name Freq PRN Reason Stop Dose Admin Acetaminophen 975 mg 04/18/17 13:58 04/18/17 14:08 Feverall 650 Mg WA 04/18/17 13:59 975 mg STAT STA Administration Acetaminophen Confirm 04/18/17 14:06 Feverall 650 Mg Administered 04/18/17 14:07 Dose 1,300 mg .ROUTE .STK-MED ONE Albuterol/Ipratropium 3 ml 04/18/17 13:58 04/18/17 14:06 Duoneb 0.5-3 Mg/3 Ml Neb IH 04/18/17 13:59 3 ml STAT ONE Administration Albuterol/Ipratropium Confirm 04/18/17 14:05 Duoneb 0.5-3 Mg/3 Ml Neb Administered 04/18/17 14:06 Dose 3 ml IH .STK-MED ONE Famotidine 20 mg 04/18/17 13:58 04/18/17 14:08 Pepcid 20 Mg Vial IV 04/18/17 13:59 20 mg STAT ONE Administration Famotidine Confirm 04/18/17 14:06 Pepcid 20 Mg Vial Administered 04/18/17 14:07 Dose 20 mg IV .STK-MED ONE Sodium Chloride 1,000 mls @ 999 mls/hr 04/18/17 13:58 04/18/17 14:08 Sodium Chloride 0.9% 1000 Ml IV 04/18/17 14:58 999 mls/hr .Q1H1M STA Administration Piperacillin Sod/Tazobactam Sod 3.375 gm in 100 mls @ 200 mls/hr 04/18/17 13: 59 04/18/17 14:08 Zosyn 3.375gm/100 Ml D5w IV 04/18/17 14:28 200 mls/hr STAT STA Administration Sodium Chloride Confirm 04/18/17 14:02 Sodium Chloride 0.9% 1000 Ml Administered 04/18/17 14:03 Dose 1,000 mls @ ud .ROUTE .STK-MED ONE Piperacillin Sod/Tazobactam Sod Confirm 04/18/17 14:07 Zosyn 3.375gm/100 Ml D5w Administered 04/18/17 14:08 Dose 3.375 gm in 100 mls @ ud IV .STK-MED ONE Lab/Rad Data: Laboratory Result Diagrams 04/18/17 14:02 04/18/17 14:02 Laboratory Results 04/18/17 04/18/17 04/18/17 Range/Units 14:15 14:10 14:02 WBC (4.0-10.5) K/mm3 RBC (4.1-5.6) M/mm3 Hgb (12.5-18.0) gm/dl Hct (42-50) % MCV (78-100) fl MCH (26-32) pg MCHC (32-36) g/dl RDW (11.5-14.0) % Plt Count (150-450) K/mm3 MPV (6-9.5) fl Segmented Neutrophils (36.-66.) % Band Neutrophils (0.0-2.0) % Lymphocytes (Manual) (24-44) % Monocytes (Manual) (0.0-12.0) % Eosinophils (Manual) (0.00-3.0) % Metamyelocytes % Differential Comment Platelet Estimate (NORMAL) INR (0.8-3.0) APTT (24.1-36.1) SECONDS Puncture Site pCO2 (35-45) mmHg pO2 (75-100) mmHg Base Excess (-2.0-2.0) O2 Saturation (94-100) g/dF ABG pH (7.35-7.45) ABG HCO3 (22-28) ABG O2 Sat (Measured) (95-100) % Zac Test A-a Gradient a/A Ratio Hemoglobin Carboxyhemoglobin (0.0-6.9) % THgb Methemoglobin (1.4-1.5) % Potassium (3.5-5.1) Temperature C POC O2 Flow Rate % Sodium (136-145) mEq/L Chloride (98-107) mEq/L Carbon Dioxide (21-32) mEq/L Anion Gap (5-15) MEQ/L BUN (9-20) mg/dL Creatinine (0.55-1.30) mg/dl Estimated GFR ML/MIN Glucose (70-110) MG/DL Lactic Acid (0.4-2.0) Calcium (8.5-10.1) mg/dL Magnesium 2.2 (1.8-2.4) mg/dL Total Bilirubin (0.2-1.0) mg/dL AST (15-37) U/L ALT (12-78) U/L Alkaline Phosphatase (46-116) U/L Troponin I < 0.017 (0.000-0.056) ng/ml Serum Total Protein (6.4-8.2) gm/dL Albumin (3.4-5.0) g/dL Ur Collection Type Urine Color (YELLOW) Urine Appearance (CLEAR) Urine pH (5-6) Ur Specific [place] (1.005-1.025) Urine Protein (Negative) Urine Ketones (NEGATIVE) Urine Blood (0-5) Jean-Paul/ul Urine Nitrite (NEGATIVE) Urine Bilirubin (NEGATIVE) Urine Urobilinogen (0-1) mg/dL Ur Leukocyte Esterase (NEGATIVE) Urine Microscopic RBC (0-2) /HPF Urine Microscopic WBC (0-5) /HPF Ur Epithelial Cells (FEW) /HPF Urine Bacteria (NEGATIVE) /HPF Hyaline Casts (0-2) /LPF Urine Mucus (NEGATIVE) /HPF Urine Glucose (NEGATIVE) mg/dL Influenza Type A Ag POSITIVE (NEGATIVE) Influenza Type B Ag NEGATIVE (NEGATIVE) RSV (PCR) NEGATIVE (Negative) Specimen Received 04/18/17 04/18/17 04/18/17 Range/Units 14:02 14:02 14:02 WBC 9.5 (4.0-10.5) K/mm3 RBC 5.42 (4.1-5.6) M/mm3 Hgb 16.1 (12.5-18.0) gm/dl Hct 49.7 (42-50) % MCV 91.7 (78-100) fl MCH 29.7 (26-32) pg MCHC 32.4 (32-36) g/dl RDW 13.8 (11.5-14.0) % Plt Count 194 (150-450) K/mm3 MPV 10.7 H (6-9.5) fl Segmented Neutrophils 55 (36.-66.) % Band Neutrophils 18 H (0.0-2.0) % Lymphocytes (Manual) 18 L (24-44) % Monocytes (Manual) 7 (0.0-12.0) % Eosinophils (Manual) 1 (0.00-3.0) % Metamyelocytes 1 % Differential Comment NORMAL Platelet Estimate NORMAL (NORMAL) INR 0.96 (0.8-3.0) APTT 27.3 (24.1-36.1) SECONDS Puncture Site pCO2 (35-45) mmHg pO2 (75-100) mmHg Base Excess (-2.0-2.0) O2 Saturation (94-100) g/dF ABG pH (7.35-7.45) ABG HCO3 (22-28) ABG O2 Sat (Measured) (95-100) % Zac Test A-a Gradient a/A Ratio Hemoglobin Carboxyhemoglobin (0.0-6.9) % THgb Methemoglobin (1.4-1.5) % Potassium 4.5 (3.5-5.1) Temperature C POC O2 Flow Rate % Sodium 134 L (136-145) mEq/L Chloride 97 L (98-107) mEq/L Carbon Dioxide 27.5 (21-32) mEq/L Anion Gap 13.8 (5-15) MEQ/L BUN 15 (9-20) mg/dL Creatinine 0.91 (0.55-1.30) mg/dl Estimated GFR > 60 ML/MIN Glucose 156 H (70-110) MG/DL Lactic Acid (0.4-2.0) Calcium 8.9 (8.5-10.1) mg/dL Magnesium (1.8-2.4) mg/dL Total Bilirubin 0.80 (0.2-1.0) mg/dL AST 33 (15-37) U/L ALT 22 (12-78) U/L Alkaline Phosphatase 89 (46-116) U/L Troponin I (0.000-0.056) ng/ml Serum Total Protein 7.2 (6.4-8.2) gm/dL Albumin 3.3 L (3.4-5.0) g/dL Ur Collection Type Urine Color (YELLOW) Urine Appearance (CLEAR) Urine pH (5-6) Ur Specific [place] (1.005-1.025) Urine Protein (Negative) Urine Ketones (NEGATIVE) Urine Blood (0-5) Jean-Paul/ul Urine Nitrite (NEGATIVE) Urine Bilirubin (NEGATIVE) Urine Urobilinogen (0-1) mg/dL Ur Leukocyte Esterase (NEGATIVE) Urine Microscopic RBC (0-2) /HPF Urine Microscopic WBC (0-5) /HPF Ur Epithelial Cells (FEW) /HPF Urine Bacteria (NEGATIVE) /HPF Hyaline Casts (0-2) /LPF Urine Mucus (NEGATIVE) /HPF Urine Glucose (NEGATIVE) mg/dL Influenza Type A Ag (NEGATIVE) Influenza Type B Ag (NEGATIVE) RSV (PCR) (Negative) Specimen Received 04/18/17 04/18/17 04/18/17 Range/Units 13:57 13:57 13:57 WBC (4.0-10.5) K/mm3 RBC (4.1-5.6) M/mm3 Hgb (12.5-18.0) gm/dl Hct (42-50) % MCV (78-100) fl MCH (26-32) pg MCHC (32-36) g/dl RDW (11.5-14.0) % Plt Count (150-450) K/mm3 MPV (6-9.5) fl Segmented Neutrophils (36.-66.) % Band Neutrophils (0.0-2.0) % Lymphocytes (Manual) (24-44) % Monocytes (Manual) (0.0-12.0) % Eosinophils (Manual) (0.00-3.0) % Metamyelocytes % Differential Comment Platelet Estimate (NORMAL) INR (0.8-3.0) APTT (24.1-36.1) SECONDS Puncture Site RIGHT RADIAL pCO2 38 (35-45) mmHg pO2 149 H* (75-100) mmHg Base Excess 6.9 H (-2.0-2.0) O2 Saturation 96.7 (94-100) g/dF ABG pH 7.51 H (7.35-7.45) ABG HCO3 30.3 H* (22-28) ABG O2 Sat (Measured) 100.1 H (95-100) % Zac Test YES A-a Gradient 374 a/A Ratio 0.28 Hemoglobin 17.3 Carboxyhemoglobin 2.6 (0.0-6.9) % THgb Methemoglobin 0.9 L (1.4-1.5) % Potassium 4.0 (3.5-5.1) Temperature 37.0 C POC O2 Flow Rate 80 % Sodium (136-145) mEq/L Chloride (98-107) mEq/L Carbon Dioxide (21-32) mEq/L Anion Gap (5-15) MEQ/L BUN (9-20) mg/dL Creatinine (0.55-1.30) mg/dl Estimated GFR ML/MIN Glucose (70-110) MG/DL Lactic Acid 2.3 H (0.4-2.0) Calcium (8.5-10.1) mg/dL Magnesium (1.8-2.4) mg/dL Total Bilirubin (0.2-1.0) mg/dL AST (15-37) U/L ALT (12-78) U/L Alkaline Phosphatase (46-116) U/L Troponin I (0.000-0.056) ng/ml Serum Total Protein (6.4-8.2) gm/dL Albumin (3.4-5.0) g/dL Ur Collection Type VOID Urine Color YELLOW (YELLOW) Urine Appearance CLEAR (CLEAR) Urine pH 5.0 (5-6) Ur Specific [place] 1.025 (1.005-1.025) Urine Protein 30 (Negative) Urine Ketones SMALL (NEGATIVE) Urine Blood 50 (0-5) Jean-Paul/ul Urine Nitrite NEGATIVE (NEGATIVE) Urine Bilirubin SMALL (NEGATIVE) Urine Urobilinogen 1 (0-1) mg/dL Ur Leukocyte Esterase TRACE (NEGATIVE) Urine Microscopic RBC 2-5 (0-2) /HPF Urine Microscopic WBC 0-2 (0-5) /HPF Ur Epithelial Cells RARE (FEW) /HPF Urine Bacteria RARE (NEGATIVE) /HPF Hyaline Casts 2-5 (0-2) /LPF Urine Mucus MANY (NEGATIVE) /HPF Urine Glucose 100 (NEGATIVE) mg/dL Influenza Type A Ag (NEGATIVE) Influenza Type B Ag (NEGATIVE) RSV (PCR) (Negative) Specimen Received 04/18/17 1430 - Progress Progress Note: 04/18/17 15:29 Pt arrived with resp distress. High flow oxygen started on arrival. He is settling down some. IVF bolus given. He now has influenza. Called Dr Marta Edwards and will admit to ICU. Abtx also given to cover sepsis as he has bandemia. Discussed with Dr.: Sky Will see patient in: hospital (full admit) Counseled pt/family regarding: lab results, diagnosis, need for follow-up, rad results, smoking cessation - Departure Time of Disposition: 15:30 Departure Disposition: In-patient Admission Clinical Impression: Acute respiratory distress, COPD exacerbation, Influenza A Condition: Serious Critical Care Time: Yes Critical Care Time(excluding separately billable procedures): 30-74 minutes
[2017-04-18 14:42] LABS: ALBUMIN 3.3 g/dL (3.4-5.0); ALKALINE PHOSPHATASE 89 U/L (46-116); ANION GAP 13.8 MEQ/L (5-15); BLOOD UREA NITROGEN 15 mg/dL (9-20); CHLORIDE 97 mEq/L (98-107); Calcium 8.9 mg/dL (8.5-10.1); Carbon Dioxide 27.5 mEq/L (21-32); Creatinine 1 0.91 mg/dl (0.55-1.30); EST GLOMERULAR FILTRATION RATE > 60 ML/MIN; Glucose 156 MG/DL (70-110); Potassium 4.5 mEq/L (3.5-5.1); SGOT/AST 33 U/L (15-37); SGPT/ALT 22 U/L (12-78); SODIUM 134 mEq/L (136-145); Total Protein 7.2 gm/dL (6.4-8.2)
[2017-04-18 14:46] LABS: BAND 18 % (0.0-2.0); Eosinophil 1 % (0.00-3.0); Lymphocytes 18 % (24-44); Metamyelocyte 1 %; Monocyte 7 % (0.0-12.0); Neutrophils 55 % (36.-66.); Platelet Estimate NORMAL (NORMAL); Total Cells Counted 100
[2017-04-18 14:48] LABS: Granulocyte Absolute (ANC) 6.9 (1.4-6.9); Platelet Count 194 K/mm3 (150-450)
[2017-04-18 14:53] LABS: INR 0.96 (0.8-3.0)
[2017-04-18 14:55] LABS: PTT 27.3 SECONDS (24.1-36.1)
[2017-04-18 15:19] LABS: Appearance CLEAR (CLEAR); Bilirubin SMALL (NEGATIVE); Blood 50 Ery/ul (0-5); Glucose 100 mg/dL (NEGATIVE); Ketones SMALL (NEGATIVE); Leukocyte Esterase TRACE (NEGATIVE); Nitrite NEGATIVE (NEGATIVE); Protein,Urine Dip 30 (Negative); Specific Gravity 1.025 (1.005-1.025); Urobilinogen 1 mg/dL (0-1)
[2017-04-18 15:20] LABS: INFLUENZA A POSITIVE (NEGATIVE); INFLUENZA B NEGATIVE (NEGATIVE); RESPIRATORY SYNCTIAL VIRUS NEGATIVE (Negative)
[2017-04-18 15:21] LABS: Bacteria RARE /HPF (NEGATIVE); Epithelial Cells RARE /HPF (FEW); Mucus MANY /HPF (NEGATIVE); WBC 0-2 /HPF (0-5)
[2017-04-18] MEDS ORDERED: Zithromax 500 MG/ 250 ML NaCl Premix 500 MG/250 ML IVPB IV STA (15:31)
[2017-04-18] MEDS: Tamiflu 75MG Capsule PO SCH (15:31)
[2017-04-18] MEDS ORDERED: Zithromax 500 MG/ 250 ML NaCl Premix 500 MG/250 ML IVPB IV ONE (15:35)
[2017-04-18] MEDS: DUONEB 0.5-3 MG/3 ml Neb IH SCH ×3 (16:26→23:13)
[2017-04-18] MEDS: D5W/0.45NS W/ 20mEq KCl 1000 ML 1,000 ML IV SCH (17:59)
[2017-04-18] MEDS: TYLENOL 325 MG PO PRN (17:59)
[2017-04-18] MEDS: solu-MEDROL 125 MG IV SCH ×2 (18:01→23:10)
[2017-04-18] MEDS ORDERED: ENOXAPARIN SODIUM SQ ONE (18:11)
--- NOTE | 2017-04-18 18:17 | PCM.HP ---
History of Present Illness - Chief Complaint Chief Complaint: COPD exacerbation, acute resp. distress. 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 He was discharged on doxycycline and prednisone and said he was feeling really good for 1 day but then developed fever chills and increasing shortness of breath and cold only breath sitting up in his kitchen. He sat like this for 3 days until finially his adopted daughter said she was taking him to the hospital and he agreed to have the ambulance come because he knew he needed oxygen. He was given oxygen, nebs and steroids and arrived at ED where he was found to have influenza A and severe respiratory distress that is improving with the high flow O2. He is very tired he was able to eat some jellow and drink a little after the treatments in the ED. he has chronic pain in his left leg that he states is no different then his usual. - Review of Systems Constitutional: Fever, Chills, Fatigue, Weakness Ears, Nose, & Throat: Nose Congestion, Nose Discharge Respiratory: Cough, Short Of Breath, Wheezing Cardiac: Chest Pain, Palpitations Abdominal/Gastrointestinal: Abdominal Pain, Nausea, No Vomiting, No Diarrhea Genitourinary Symptoms: No Dysuria, No Frequency Musculoskeletal: Arthralgias, Back Pain Neurological: Headache, No Dizziness, No Focal Weakness Psychological: No Alcohol Abuse, No Drug Abuse Medications & Allergies Home Medications: Home Medication List Albuterol 2.5 mg/3 ml Neb [Proventil 2.5 mg/3 ml Neb] 2.5 mg IH Q4HPRN PRN #100 neb 04/14/17 [Rx Confirmed 04/18/17] Albuterol Sulfate [Ventolin Hfa] 1 puff IH Q4H PRN #1 inh 04/14/17 [Rx Confirmed 04/18/17] Atorvastatin Calcium [Lipitor] 40 mg PO HS #30 tablet 04/14/17 [Rx Confirmed ] Clopidogrel Bisulfate 75 mg [PLAVIX 75 MG Tablet] 75 mg PO DAILY #30 tablet 04/14/17 [Rx Confirmed 04/18/17] Doxycycline Hyclate 100 mg PO BID #12 capsule 04/14/17 [Rx Confirmed 04/18/17] Lisinopril [Zestril] 2.5 mg PO DAILY #30 tablet 04/14/17 [Rx Confirmed 04/18/17] Metoprolol Tartrate 50 mg PO BID #60 tablet 04/14/17 [Rx Confirmed 04/18/17] Prednisone 10 mg [Deltasone 10 mg] 10 mg PO UD #34 tablet 04/14/17 [Rx Confirmed 04/18/17] Fluticasone/Vilanterol [Breo Ellipta 200-25 Mcg INH] 1 puff IH DAILY 04/18/17 [ History Confirmed 04/18/17] Allergies/Adverse Reactions: Allergies Allergy/AdvReac Type Severity Reaction Status Date / Time naproxen AdvReac Severe Verified 04/18/17 16:40 - Past Medical History Past Medical History: Yes Neurological History: No Pertinent History ENT History: No Pertinent History Cardiac History: Myocardial Infarction (HI) Respiratory History: COPD Endocrine Medical History: No Pertinent History Musculoskelatal History: No Pertinent History GI Medical History: No Pertinent History History: No Pertinent History Pyscho-Social History: No Pertinent History Male Reproductive Disorders: No Pertinent History Comment: Pt reports that partner reported to him that she tested positive for an STD but he is unsure which one it is. Pt states he see's Dr. Segura for his heart and Dr. Margarito Power for his lungs. Pt denies hx of HTN or high cholesterol but is on medication for both - Past Surgical History Past Surgical History: Yes Neuro Surgical History: No Pertinent History Cardiac History: CABG GI Surgical History: No Pertinent History Genitourinary Surgical Hx: No Pertinent History Musculskeletal Surgical Hx: No Pertinent History Male Surgical History: No Pertinent History Other Surgical History: Pt reports having CABG in March of this year. - Social History Smoking Status: Former smoker How long have you smoked: 48 years Exposure to second hand smoke: Yes Alcohol: None Drug Use: marijuana - Physical Exam Vital Signs: Vital Signs - 24 hr Temp Pulse Resp BP Pulse Ox 04/18/17 17:21 98.5 F 114 H 29 H 108/76 97 04/18/17 16:38 118 H 28 H 98 04/18/17 15:30 96 04/18/17 15:14 100.0 F 120 H 26 H 126/63 97 04/18/17 14:48 100.0 F 118 H 24 191/93 96 04/18/17 14:16 139 H 32 H 97 04/18/17 13:54 102.0 F 148 H 28 H 160/93 96 Oxygen-Last 24 hours O2 Percentage 70% O2 Percentage 70% O2 Percentage 70% O2 Percentage 70% O2 Percentage 70% Oxygen Flowrate (L/min)-RT 72 General Appearance: moderate distress Neurologic Exam: alert, oriented x 3, cooperative Eye Exam: PERRL/EOMI, No scleral icterus, No pale conjunctivae Ears, Nose, Throat Exam: dry mucous membranes Neck Exam: normal inspection, non-tender, supple Respiratory Exam: prolonged expirations, wheezing, other (shallow respirations with tachypnea and talking in only short sentences) Cardiovascular Exam: tachycardia, No murmur Gastrointestinal/Abdomen Exam: soft, normal bowel sounds, No tenderness, No distention Extremity Exam: other (left lower extremity trace edema) Skin Exam: warm, dry Results - Labs Lab/Micro Results: Lab Results-Last 24 Hours 04/18/17 Range/Units 17:13 Lactic Acid 1.7 (0.4-2.0) - Other Procedures and Tests Respiratory Therapy 04/18/17 14:00 Oxygen High Flow High Flow 45 lpm 04/18/17 19:00 Respiratory Nebulizer Q4H Assessment/Plan (1) Acute hypoxemic respiratory failure Current Visit: Yes Status: Acute Assessment & Plan: he is improving but still with distress on the high flow NC continue fluid replacement tamiflu methylprednisolone received 125 mg in ambulance per ED continue 80 mg q6h nebs was started on azithromycin and zosyn due to his bandemia and severe symptoms in ED. we will plan to De escalate as tolerated. Most likely etiology to the respiratory failure is his developing influenza A 3 days ago, however he does have chronic pain and some swelling of his left leg and given the recent hospitalization and severity of symptoms would like to rule out PE With his respiratory status he was unable to tolerate laying flat for CT PE protocol will check D-Dimer Give 1 dose of Lovenox 1mg/kg and have a ultrasound of the left lower extremity he understands the critical illness and we discussed if he is showing worsening symptoms he may require ventilator and he expressed understanding and consented to this if needed. Code(s): J96.01 - ACUTE RESPIRATORY FAILURE WITH HYPOXIA (2) Influenza A Current Visit: Yes Status: Acute Code(s): J10.1 - FLU DUE TO OTH IDENT INFLUENZA VIRUS W OTH RESP MANIFEST (3) COPD exacerbation Current Visit: Yes Status: Acute Code(s): J44.1 - CHRONIC OBSTRUCTIVE PULMONARY DISEASE W (ACUTE) EXACERBATION (4) Coronary artery disease Current Visit: Yes Status: Chronic Code(s): I25.10 - ATHSCL HEART DISEASE OF [place] CORONARY ARTERY W/O ANG PCTRS (5) Tobacco abuse Current Visit: Yes Status: Chronic Code(s): Z72.0 - TOBACCO USE
[2017-04-18] MEDS ORDERED: ZOCOR 20MG ONE (20:58)
[2017-04-18] MEDS ORDERED: LIPITOR 40MG PO ONE (22:00)
[2017-04-18] MEDS: Zosyn 3.375GM/100 Ml D5W 3.375 GM/100 ML IVPB IV SCH (22:48)
[2017-04-18] MEDS: Lopressor 50 MG PO ONE ×2 (22:48→23:02)
[2017-04-18] MEDS: Pepcid 20 MG VIAL IV SCH (22:49)
[2017-04-19 03:22] LABS: Lactic Acid 3.9 (0.4-2.0); VBG BASE EXCESS 2.1 (-2.0-2.0); VBG CARBOXYHEMOGLOBIN 2.6 % T HGB (0.0-6.9); VBG HCO3- 32.1 meq/L (22-28); VBG HEMOGLOBIN 15.1; VBG O2 SATURATION 49.9 (95-100); VBG PCO2 75 mm/Hg (42-55); VBG PO2 27 mm/Hg (25-40); VBG POTASSIUM 5.1 (3.5-5.1)
[2017-04-19 03:23] LABS: VBG pH 7.24 (7.32-7.42)
[2017-04-19] MEDS: DUONEB 0.5-3 MG/3 ml Neb IH SCH ×6 (03:38→23:50)
[2017-04-19 03:57] LABS: A-aADO2 290; ABG HEMOGLOBIN 15.3; ABG POTASSIUM 4.3 (3.5-5.1); ARTERIAL BLD GAS O2 SATURATION 99.4 % (95-100); ARTERIAL BLOOD GAS BASE EXCESS 1.2 (-2.0-2.0); ARTERIAL BLOOD GAS FIO2 70 %; ARTERIAL BLOOD GAS PCO2 52 mmHg (35-45); ARTERIAL BLOOD GAS PO2 144 mmHg (75-100); ARTERIAL BLOOD GAS pH 7.34 (7.35-7.45); CARBOXYHEMOGLOBIN 1.5 % THgb (0.0-6.9); HCO3- 28.1 (22-28); HGB O2 SAT 96.8 g/dF (94-100); Methhemoglobin 1.2 % (1.4-1.5); paO2 pAO1 0.33
[2017-04-19] MEDS ORDERED: Lopressor 50 MG PO ONE (04:15)
[2017-04-19] MEDS: D5W/0.45NS W/ 20mEq KCl 1000 ML 1,000 ML IV SCH (04:20)
[2017-04-19] MEDS: TYLENOL 325 MG PO PRN ×3 (04:20→17:09)
[2017-04-19] MEDS: Ativan 2 MG/1 ML VIAL IV PRN (04:21)
[2017-04-19 04:24] LABS: ALKALINE PHOSPHATASE 77 U/L (46-116); ANION GAP 10.2 MEQ/L (5-15); BLOOD UREA NITROGEN 14 mg/dL (9-20); CHLORIDE 103 mEq/L (98-107); Calcium 8.4 mg/dL (8.5-10.1); Carbon Dioxide 32.8 mEq/L (21-32); Creatinine 1 1.18 mg/dl (0.55-1.30); EST GLOMERULAR FILTRATION RATE > 60 ML/MIN; Glucose 231 MG/DL (70-110); Potassium 5.2 mEq/L (3.5-5.1); SGOT/AST 19 U/L (15-37); SGPT/ALT 23 U/L (12-78); SODIUM 141 mEq/L (136-145)
[2017-04-19] MEDS: Zosyn 3.375GM/100 Ml D5W 3.375 GM/100 ML IVPB IV SCH ×4 (05:47→23:10)
[2017-04-19] MEDS: Dextrose 5% -0.45 NaCl 1000 ML 1,000 ML IV SCH ×2 (05:47→16:32)
[2017-04-19] MEDS: solu-MEDROL 125 MG IV SCH ×4 (05:47→23:10)
[2017-04-19 06:19] LABS: Granulocyte Absolute (ANC) 4.24 (1.4-6.9); Hematocrit 44.5 % (42-50); Hemoglobin 14.1 gm/dl (12.5-18.0); Mean Cell Volume 95.5 fl (78-100); Mean Corpuscular Hemoglobin 30.3 pg (26-32); Mean Corpuscular Hgb Concent. 31.7 g/dl (32-36); Platelet Count 173 K/mm3 (150-450); Red Blood Count 4.66 M/mm3 (4.1-5.6); Red Cell Distribution Width 13.7 % (11.5-14.0); White Blood Count 4.9 K/mm3 (4.0-10.5)
[2017-04-19] MEDS ORDERED: PROVENTIL 2.5 MG/3 ML NEB IH PRN (07:57)
[2017-04-19 08:01] LABS: ABG SITE RIGHT RADIAL; ALLEN TEST OK? YES
[2017-04-19 08:08] LABS: BAND 15 % (0.0-2.0); Lymphocytes 4 % (24-44); Monocyte 2 % (0.0-12.0); Neutrophils 79 % (36.-66.); Total Cells Counted 100
[2017-04-19 08:09] LABS: Platelet Estimate NORMAL (NORMAL); Toxic Granulation 2+
[2017-04-19] MEDS: Zithromax 500 MG/ 250 ML NaCl Premix 500 MG/250 ML IVPB IV SCH (09:03)
[2017-04-19] MEDS: Zestril 5 MG PO SCH (09:03)
[2017-04-19] MEDS: Pepcid 20 MG VIAL IV SCH ×2 (09:04→21:07)
[2017-04-19] MEDS: Tamiflu 75MG Capsule PO SCH ×2 (09:04→21:07)
[2017-04-19] MEDS: PLAVIX 75 MG Tablet PO SCH (09:04)
[2017-04-19] MEDS: Lopressor 50 MG PO SCH ×2 (09:05→21:07)
--- NOTE | 2017-04-19 11:05 | PCM.NOTE ---
Date and Time: 04/19/17 1059 Subjective Assessment: Overnight he was on 70% high flow O2 and was short of breath. Venous blood gas with pH 3.1 so followed up with ABG which was somewhat better, pH 7.32 with nl paO2 and COs in the 50s. This morning repeat ABG with pH 7.36 and PaCO2 in the 50s. He is currently on 50% high flow O2 and sats are in the 90s. He was actually off the oxygen for 5 minutes to rest his nose and sats stayed in the 90s. He does c/o of still feeling sob and anxious at times. He has been tolerating po. His d-dimer was wnl yesterday. - Review of Systems Constitutional: Fever Respiratory: Cough, Short Of Breath Objective Exam General Appearance: no apparent distress, anxiety Neurologic Exam: oriented x 3, cooperative Skin Exam: normal color, warm, dry, No rash Ears, Nose, Throat Exam: moist mucous membranes, other (high flow O2 apparatus in place) Respiratory Exam: diminished breath sounds (fair air exchange), wheezing ( scattered), No crackles/rales, No rhonchi Cardiovascular Exam: regular rate/rhythm, normal heart sounds, No murmur Extremity Exam: No pedal edema, No swelling OBJECTIVE DATA Vital Signs: Vital Signs - 24 hr Temp Pulse Resp BP Pulse Ox 04/19/17 10:15 106 H 31 H 129/77 97 04/19/17 08:10 98.0 F 100 H 30 H 122/78 96 04/19/17 08:00 100 H 04/19/17 07:00 98 H 28 H 100 04/19/17 05:00 89 30 H 120/71 98 04/19/17 04:00 96.7 F 116 H 25 H 141/76 99 04/19/17 03:39 120 H 29 H 99 04/18/17 23:58 75 04/18/17 23:13 81 24 99 04/18/17 23:01 96.3 F 75 21 103/76 100 04/18/17 20:00 97.4 F 94 H 26 H 110/80 98 04/18/17 19:23 89 25 H 97 04/18/17 18:00 102 H 30 H 120/78 95 04/18/17 17:21 98.5 F 114 H 29 H 108/76 97 04/18/17 16:38 118 H 28 H 98 04/18/17 15:30 96 04/18/17 15:14 100.0 F 120 H 26 H 126/63 97 04/18/17 14:48 100.0 F 118 H 24 191/93 96 04/18/17 14:16 139 H 32 H 97 04/18/17 13:54 102.0 F 148 H 28 H 160/93 96 Oxygen-Last 24 hours O2 Percentage 50% O2 Percentage 40% O2 Percentage 70% O2 Percentage 70% O2 Percentage 70% O2 Percentage 70% O2 Percentage 70% O2 Percentage 70% O2 Percentage 70% O2 Percentage 70% O2 Percentage 70% O2 Percentage 70% Oxygen Flowrate (L/min)-RT 35 Oxygen Flowrate (L/min)-RT 45 Oxygen Flowrate (L/min)-RT 45 Oxygen Flowrate (L/min)-RT 72 Pain Assessment - Last Documented Pain Intensity 3 Pain Scale Used 0-10 Pain Scale Intake and Output: Intake & Output 04/16/17 04/17/17 04/18/17 04/19/17 11:59 11:59 11:59 11:59 Intake Total 1023 Output Total 1030 Balance -7 Weight 76 kg Lab Results: Lab Results-Last 24 Hours 04/18/17 04/18/17 04/18/17 Range/Units 17:04 17:13 20:20 WBC (4.0-10.5) K/mm3 RBC (4.1-5.6) M/mm3 Hgb (12.5-18.0) gm/dl Hct (42-50) % MCV (78-100) fl MCH (26-32) pg MCHC (32-36) g/dl RDW (11.5-14.0) % Plt Count (150-450) K/mm3 MPV (6-9.5) fl Segmented Neutrophils (36.-66.) % Band Neutrophils (0.0-2.0) % Lymphocytes (Manual) (24-44) % Monocytes (Manual) (0.0-12.0) % Differential Comment Toxic Granulation Platelet Estimate (NORMAL) D-Dimer (0-500) ng/mL Puncture Site pCO2 (35-45) mmHg pO2 (75-100) mmHg Base Excess (-2.0-2.0) O2 Saturation (94-100) g/dF ABG pH (7.35-7.45) ABG HCO3 (22-28) ABG O2 Sat (Measured) (95-100) % Zac Test VBG pH (7.32-7.42) VBG pCO2 at Pat Temp (42-55) mm/Hg VBG pO2 at Pat Temp (25-40) mm/Hg VBG HCO3 (22-28) meq/L VBG O2 Sat (Jennifer) (95-100) VBG Base Excess (-2.0-2.0) VBG Hemoglobin VBG Carboxyhemoglobin (0.0-6.9) % T HGB A-a Gradient a/A Ratio Hemoglobin Carboxyhemoglobin (0.0-6.9) % THgb Methemoglobin (1.4-1.5) % Potassium (3.5-5.1) POC Potassium (3.5-5.1) Temperature C POC O2 Flow Rate % Sodium (136-145) mEq/L Chloride (98-107) mEq/L Carbon Dioxide (21-32) mEq/L Anion Gap (5-15) MEQ/L BUN (9-20) mg/dL Creatinine (0.55-1.30) mg/dl Estimated GFR ML/MIN Glucose (70-110) MG/DL Lactic Acid 1.7 (0.4-2.0) Calcium (8.5-10.1) mg/dL Total Bilirubin (0.2-1.0) mg/dL AST (15-37) U/L ALT (12-78) U/L Alkaline Phosphatase (46-116) U/L Troponin I 0.020 < 0.017 (0.000-0.056) ng/ml Serum Total Protein (6.4-8.2) gm/dL Albumin (3.4-5.0) g/dL 04/18/17 04/18/17 04/19/17 Range/Units 20:20 23:45 02:30 WBC (4.0-10.5) K/mm3 RBC (4.1-5.6) M/mm3 Hgb (12.5-18.0) gm/dl Hct (42-50) % MCV (78-100) fl MCH (26-32) pg MCHC (32-36) g/dl RDW (11.5-14.0) % Plt Count (150-450) K/mm3 MPV (6-9.5) fl Segmented Neutrophils (36.-66.) % Band Neutrophils (0.0-2.0) % Lymphocytes (Manual) (24-44) % Monocytes (Manual) (0.0-12.0) % Differential Comment Toxic Granulation Platelet Estimate (NORMAL) D-Dimer 496.35 (0-500) ng/mL Puncture Site pCO2 (35-45) mmHg pO2 (75-100) mmHg Base Excess (-2.0-2.0) O2 Saturation (94-100) g/dF ABG pH (7.35-7.45) ABG HCO3 (22-28) ABG O2 Sat (Measured) (95-100) % Zac Test VBG pH (7.32-7.42) VBG pCO2 at Pat Temp (42-55) mm/Hg VBG pO2 at Pat Temp (25-40) mm/Hg VBG HCO3 (22-28) meq/L VBG O2 Sat (Jennifer) (95-100) VBG Base Excess (-2.0-2.0) VBG Hemoglobin VBG Carboxyhemoglobin (0.0-6.9) % T HGB A-a Gradient a/A Ratio Hemoglobin Carboxyhemoglobin (0.0-6.9) % THgb Methemoglobin (1.4-1.5) % Potassium (3.5-5.1) POC Potassium (3.5-5.1) Temperature C POC O2 Flow Rate % Sodium (136-145) mEq/L Chloride (98-107) mEq/L Carbon Dioxide (21-32) mEq/L Anion Gap (5-15) MEQ/L BUN (9-20) mg/dL Creatinine (0.55-1.30) mg/dl Estimated GFR ML/MIN Glucose (70-110) MG/DL Lactic Acid (0.4-2.0) Calcium (8.5-10.1) mg/dL Total Bilirubin (0.2-1.0) mg/dL AST (15-37) U/L ALT (12-78) U/L Alkaline Phosphatase (46-116) U/L Troponin I < 0.017 < 0.017 (0.000-0.056) ng/ml Serum Total Protein (6.4-8.2) gm/dL Albumin (3.4-5.0) g/dL 04/19/17 04/19/17 04/19/17 Range/Units 03:00 03:42 04:00 WBC 4.9 (4.0-10.5) K/mm3 RBC 4.66 (4.1-5.6) M/mm3 Hgb 14.1 (12.5-18.0) gm/dl Hct 44.5 (42-50) % MCV 95.5 (78-100) fl MCH 30.3 (26-32) pg MCHC 31.7 L (32-36) g/dl RDW 13.7 (11.5-14.0) % Plt Count 173 (150-450) K/mm3 MPV 11.0 H (6-9.5) fl Segmented Neutrophils 79 H (36.-66.) % Band Neutrophils 15 H (0.0-2.0) % Lymphocytes (Manual) 4 L (24-44) % Monocytes (Manual) 2 (0.0-12.0) % Differential Comment NORMAL Toxic Granulation 2+ Platelet Estimate NORMAL (NORMAL) D-Dimer (0-500) ng/mL Puncture Site RIGHT RADIAL pCO2 52 H (35-45) mmHg pO2 144 H* (75-100) mmHg Base Excess 1.2 (-2.0-2.0) O2 Saturation 96.8 (94-100) g/dF ABG pH 7.34 L (7.35-7.45) ABG HCO3 28.1 H (22-28) ABG O2 Sat (Measured) 99.4 (95-100) % Zac Test YES VBG pH 7.24 L* (7.32-7.42) VBG pCO2 at Pat Temp 75 H* (42-55) mm/Hg VBG pO2 at Pat Temp 27 (25-40) mm/Hg VBG HCO3 32.1 H* (22-28) meq/L VBG O2 Sat (Jennifer) 49.9 L (95-100) VBG Base Excess 2.1 H (-2.0-2.0) VBG Hemoglobin 15.1 VBG Carboxyhemoglobin 2.6 (0.0-6.9) % T HGB A-a Gradient 290 a/A Ratio 0.33 Hemoglobin 15.3 Carboxyhemoglobin 1.5 (0.0-6.9) % THgb Methemoglobin 1.2 L (1.4-1.5) % Potassium 4.3 (3.5-5.1) POC Potassium 5.1 (3.5-5.1) Temperature 37.0 C POC O2 Flow Rate 70 % Sodium (136-145) mEq/L Chloride (98-107) mEq/L Carbon Dioxide (21-32) mEq/L Anion Gap (5-15) MEQ/L BUN (9-20) mg/dL Creatinine (0.55-1.30) mg/dl Estimated GFR ML/MIN Glucose (70-110) MG/DL Lactic Acid 3.9 H (0.4-2.0) Calcium (8.5-10.1) mg/dL Total Bilirubin (0.2-1.0) mg/dL AST (15-37) U/L ALT (12-78) U/L Alkaline Phosphatase (46-116) U/L Troponin I (0.000-0.056) ng/ml Serum Total Protein (6.4-8.2) gm/dL Albumin (3.4-5.0) g/dL 04/19/17 04/19/17 Range/Units 04:00 05:11 WBC (4.0-10.5) K/mm3 RBC (4.1-5.6) M/mm3 Hgb (12.5-18.0) gm/dl Hct (42-50) % MCV (78-100) fl MCH (26-32) pg MCHC (32-36) g/dl RDW (11.5-14.0) % Plt Count (150-450) K/mm3 MPV (6-9.5) fl Segmented Neutrophils (36.-66.) % Band Neutrophils (0.0-2.0) % Lymphocytes (Manual) (24-44) % Monocytes (Manual) (0.0-12.0) % Differential Comment Toxic Granulation Platelet Estimate (NORMAL) D-Dimer (0-500) ng/mL Puncture Site pCO2 (35-45) mmHg pO2 (75-100) mmHg Base Excess (-2.0-2.0) O2 Saturation (94-100) g/dF ABG pH (7.35-7.45) ABG HCO3 (22-28) ABG O2 Sat (Measured) (95-100) % Zac Test VBG pH (7.32-7.42) VBG pCO2 at Pat Temp (42-55) mm/Hg VBG pO2 at Pat Temp (25-40) mm/Hg VBG HCO3 (22-28) meq/L VBG O2 Sat (Jennifer) (95-100) VBG Base Excess (-2.0-2.0) VBG Hemoglobin VBG Carboxyhemoglobin (0.0-6.9) % T HGB A-a Gradient a/A Ratio Hemoglobin Carboxyhemoglobin (0.0-6.9) % THgb Methemoglobin (1.4-1.5) % Potassium 5.2 H (3.5-5.1) POC Potassium (3.5-5.1) Temperature C POC O2 Flow Rate % Sodium 141 (136-145) mEq/L Chloride 103 (98-107) mEq/L Carbon Dioxide 32.8 H (21-32) mEq/L Anion Gap 10.2 (5-15) MEQ/L BUN 14 (9-20) mg/dL Creatinine 1.18 (0.55-1.30) mg/dl Estimated GFR > 60 ML/MIN Glucose 231 H (70-110) MG/DL Lactic Acid 1.7 (0.4-2.0) Calcium 8.4 L (8.5-10.1) mg/dL Total Bilirubin 0.30 (0.2-1.0) mg/dL AST 19 (15-37) U/L ALT 23 (12-78) U/L Alkaline Phosphatase 77 (46-116) U/L Troponin I (0.000-0.056) ng/ml Serum Total Protein 6.0 L (6.4-8.2) gm/dL Albumin 3.0 L (3.4-5.0) g/dL Radiology Exams: Radiology Procedures Category Date Time Status Ultrasound Unilateral Extremities [VENOUS UNILAT/ Exams 04/19/17 09:00 Taken LIMITED EXTREMIT] [US] Routine Multi-Disciplinary Progress Notes: Multi-Disciplinary Progress Notes 04/19/17 08:08 Respiratory Note by Shante Sandhu dec o2 to 40% Initialized on 04/19/17 08:08 - END OF NOTE Assessment/Plan (1) Acute hypoxemic respiratory failure Current Visit: Yes Status: Acute Assessment & Plan: Better this morning. Continue on O2 as needed, if he regresses would consult pulmonology. Code(s): J96.01 - ACUTE RESPIRATORY FAILURE WITH HYPOXIA (2) COPD exacerbation Current Visit: Yes Status: Acute Assessment & Plan: On IV zosyn and zithromax, will de-escalate as tolerated, but not today. Code(s): J44.1 - CHRONIC OBSTRUCTIVE PULMONARY DISEASE W (ACUTE) EXACERBATION (3) Dyspnea Current Visit: Yes Status: Acute Assessment & Plan: added small dose IV morphine prn air hunger and ativan prn anxiety. Code(s): R06.00 - DYSPNEA, UNSPECIFIED (4) Influenza A Current Visit: Yes Status: Acute Assessment & Plan: on isolation precautions, on tamiflu. Discussed that flu shot did NOT cause the influenza. Code(s): J10.1 - FLU DUE TO OTH IDENT INFLUENZA VIRUS W OTH RESP MANIFEST (5) Coronary artery disease Current Visit: Yes Status: Chronic Assessment & Plan: BP controlled here; toprol was held yesterday because his BP was lower; given early tihs morning. HR currently just over 100 and BP in 120s systolic. Code(s): I25.10 - ATHSCL HEART DISEASE OF [place] CORONARY ARTERY W/O ANG PCTRS (6) DVT prophylaxis Current Visit: Yes Status: Acute Assessment & Plan: lovenox 40mg SQ daily. Code(s): [id number] -
[2017-04-19] MEDS: ENOXAPARIN SODIUM SQ SCH (11:24)
[2017-04-19 14:04] LABS: A-aADO2 191; ABG HEMOGLOBIN 14.4; ABG POTASSIUM 4.8 (3.5-5.1); ABG SITE RIGHT RADIAL; ALLEN TEST OK? YES; ARTERIAL BLD GAS O2 SATURATION 99.9 % (95-100); ARTERIAL BLOOD GAS BASE EXCESS 4.1 (-2.0-2.0); ARTERIAL BLOOD GAS FIO2 70 %; ARTERIAL BLOOD GAS PCO2 55 mmHg (35-45); ARTERIAL BLOOD GAS PO2 239 mmHg (75-100); ARTERIAL BLOOD GAS pH 7.36 (7.35-7.45); CARBOXYHEMOGLOBIN 1.4 % THgb (0.0-6.9); HCO3- 31.1 (22-28); HGB O2 SAT 97.5 g/dF (94-100); Methhemoglobin 0.9 % (1.4-1.5); paO2 pAO1 0.56
[2017-04-19] MEDS: LIPITOR 40MG PO SCH (21:07)
--- NOTE | 2017-04-19 22:52 | XRAY ---
Indication: Left leg edema. Two-dimensional sonogram and color Doppler imaging of the major venous vessels of the left leg was performed. Comparison: None No thrombus seen in the examined deep venous vessels of the left leg including greater saphenous vein. Veins demonstrate normal compressibility. Venous waveforms are normal with and without augmentation. Impression: Left leg negative for DVT. Comment: Preliminary report was given.
[2017-04-19] MEDS ORDERED: ZOCOR 20MG PO ONE (23:00)
[2017-04-20] MEDS: Dextrose 5% -0.45 NaCl 1000 ML 1,000 ML IV SCH ×2 (03:18→15:16)
[2017-04-20] MEDS: DUONEB 0.5-3 MG/3 ml Neb IH SCH ×6 (03:28→23:39)
[2017-04-20] MEDS: Zosyn 3.375GM/100 Ml D5W 3.375 GM/100 ML IVPB IV SCH ×4 (05:54→22:58)
[2017-04-20] MEDS: solu-MEDROL 125 MG IV SCH ×4 (05:55→22:58)
[2017-04-20] MEDS: PLAVIX 75 MG Tablet PO SCH (10:02)
[2017-04-20] MEDS: Zestril 5 MG PO SCH (10:03)
[2017-04-20] MEDS: Lopressor 50 MG PO SCH ×2 (10:03→22:59)
[2017-04-20] MEDS: Tamiflu 75MG Capsule PO SCH ×2 (10:05→22:59)
[2017-04-20] MEDS: Zithromax 500 MG/ 250 ML NaCl Premix 500 MG/250 ML IVPB IV SCH (10:24)
[2017-04-20] MEDS: Pepcid 20 MG VIAL IV SCH ×2 (10:24→22:58)
[2017-04-20] MEDS: ENOXAPARIN SODIUM SQ SCH (10:25)
--- NOTE | 2017-04-20 10:26 | PCM.NOTE ---
Date and Time: 04/20/17 1023 Subjective Assessment: Breathing is better, less anxious. On 45% hi flow 30L with O2 sats in the 90s. - Review of Systems Constitutional: No Fever Respiratory: Cough, Short Of Breath Objective Exam General Appearance: no apparent distress, alert (sitting up in bed without O2 on currently) Skin Exam: normal color, warm, dry, No rash Respiratory Exam: diminished breath sounds (poor air exchange), prolonged expirations, wheezing (throughout), No crackles/rales, No rhonchi Cardiovascular Exam: regular rate/rhythm, normal heart sounds, No murmur OBJECTIVE DATA Vital Signs: Vital Signs - 24 hr Temp Pulse Resp BP Pulse Ox 04/20/17 08:00 83 04/20/17 07:00 98.2 F 83 25 H 117/73 97 04/20/17 06:54 88 20 99 04/20/17 04:00 82 04/20/17 03:28 79 24 97 04/20/17 03:00 97.6 F 86 27 H 107/74 99 04/20/17 00:01 88 04/19/17 23:52 81 28 H 98 04/19/17 23:00 97.3 F 85 25 H 92/48 98 04/19/17 19:41 108 H 04/19/17 19:06 100 H 27 H 97 04/19/17 19:00 97.9 F 108 H 28 H 101/60 98 04/19/17 15:35 118 H 04/19/17 15:00 97.9 F 118 H 28 H 128/80 98 04/19/17 11:39 118 H 04/19/17 11:38 97.5 F 118 H 24 126/80 98 04/19/17 10:55 113 H 24 98 Oxygen-Last 24 hours O2 Percentage 50% O2 Percentage 50% O2 Percentage 50% O2 Percentage 50% Oxygen Flowrate (L/min)-RT 30 Oxygen Flowrate (L/min)-RT 30 Oxygen Flowrate (L/min)-RT 30 Oxygen Flowrate (L/min)-RT 30 Pain Assessment - Last Documented Pain Intensity 0 Pain Scale Used 0-10 Pain Scale Intake and Output: Intake & Output 04/17/17 04/18/17 04/19/17 04/20/17 11:59 11:59 11:59 11:59 Intake Total 1023 4984 Output Total 1030 2530 Balance -7 4 Weight 76 kg 77.3 kg Lab Results: Lab Results-Last 24 Hours 04/19/17 Range/Units 07:00 Puncture Site RIGHT RADIAL pCO2 55 H (35-45) mmHg pO2 239 H* (75-100) mmHg Base Excess 4.1 H (-2.0-2.0) O2 Saturation 97.5 (94-100) g/dF ABG pH 7.36 (7.35-7.45) ABG HCO3 31.1 H* (22-28) ABG O2 Sat (Measured) 99.9 (95-100) % Zac Test YES A-a Gradient 191 a/A Ratio 0.56 Hemoglobin 14.4 Carboxyhemoglobin 1.4 (0.0-6.9) % THgb Methemoglobin 0.9 L (1.4-1.5) % Potassium 4.8 (3.5-5.1) Temperature 37.0 C POC O2 Flow Rate 70 % Radiology Exams: Radiology Procedures Category Date Time Status Ultrasound Unilateral Extremities [VENOUS UNILAT/ Exams 04/19/17 09:00 Completed LIMITED EXTREMIT] [US] Routine Assessment/Plan (1) Acute hypoxemic respiratory failure Current Visit: Yes Status: Acute Assessment & Plan: On 45% high flow 30L, sats are good today, will not change meds today. He is much more comfortable today and no issues last night. Code(s): J96.01 - ACUTE RESPIRATORY FAILURE WITH HYPOXIA (2) COPD exacerbation Current Visit: Yes Status: Acute Assessment & Plan: on zosyn and zithromax currently. Code(s): J44.1 - CHRONIC OBSTRUCTIVE PULMONARY DISEASE W (ACUTE) EXACERBATION (3) Dyspnea Current Visit: Yes Status: Acute Qualifiers: Dyspnea type: shortness of breath Qualified Code(s): R06.02 - Shortness of breath; R06.00 - Dyspnea, unspecified; R06.01 - Orthopnea Assessment & Plan: improved Code(s): R06.00 - DYSPNEA, UNSPECIFIED (4) Influenza A Current Visit: Yes Status: Acute Assessment & Plan: on tamiflu Code(s): J10.1 - FLU DUE TO OTH IDENT INFLUENZA VIRUS W OTH RESP MANIFEST (5) Coronary artery disease Current Visit: Yes Status: Chronic Assessment & Plan: on home antihypertensives. BP 92-129/71-80. HR 80s - 110, fairly volatile but within that range. Code(s): I25.10 - ATHSCL HEART DISEASE OF [place] CORONARY ARTERY W/O ANDREA PCTRS (6) DVT prophylaxis Current Visit: Yes Status: Acute Assessment & Plan: On lovenox 40mg SQ daily. Code(s): [id number] -
[2017-04-20] MEDS: TYLENOL 325 MG PO PRN (12:14)
[2017-04-20] MEDS: LIPITOR 40MG PO SCH (22:59)
[2017-04-21] MEDS: Dextrose 5% -0.45 NaCl 1000 ML 1,000 ML IV SCH ×2 (02:01→02:50)
[2017-04-21] MEDS: DUONEB 0.5-3 MG/3 ml Neb IH SCH ×6 (03:18→23:39)
[2017-04-21] MEDS: solu-MEDROL 125 MG IV SCH ×3 (05:43→22:02)
[2017-04-21] MEDS: Zosyn 3.375GM/100 Ml D5W 3.375 GM/100 ML IVPB IV SCH (05:43)
[2017-04-21] MEDS: PLAVIX 75 MG Tablet PO SCH (08:04)
[2017-04-21] MEDS: Pepcid 20 MG VIAL IV SCH ×2 (08:04→22:02)
[2017-04-21] MEDS: Zestril 5 MG PO SCH (08:04)
[2017-04-21] MEDS: Lopressor 50 MG PO SCH ×2 (08:04→22:03)
[2017-04-21] MEDS: Tamiflu 75MG Capsule PO SCH ×2 (08:04→22:01)
[2017-04-21] MEDS: Zithromax 500 MG/ 250 ML NaCl Premix 500 MG/250 ML IVPB IV SCH (08:05)
[2017-04-21] MEDS: ENOXAPARIN SODIUM SQ SCH (08:06)
--- NOTE | 2017-04-21 08:45 | PCM.NOTE ---
Date and Time: 04/21/17 0844 Subjective Assessment: still short of breath with minimal exertion unable to go to toilet without assistance back to bed wheezing is improving he is eating well now Objective Exam General Appearance: alert Neurologic Exam: alert, oriented x 3, cooperative, normal mood/affect, No motor deficits Skin Exam: normal color, warm, dry Eye Exam: PERRL, EOMI, eyes nml inspection Ears, Nose, Throat Exam: normal ENT inspection, pharynx normal, moist mucous membranes Neck Exam: normal inspection, non-tender, supple, full range of motion Respiratory Exam: prolonged expirations, wheezing Cardiovascular Exam: regular rate/rhythm, normal heart sounds Gastrointestinal/Abdomen Exam: soft, No tenderness, No mass Extremity Exam: normal inspection, normal range of motion Back Exam: normal inspection, normal range of motion, No CVA tenderness, No vertebral tenderness Male Genitalia Exam: deferred Rectal Exam: deferred OBJECTIVE DATA Vital Signs: Vital Signs - 24 hr Temp Pulse Resp BP Pulse Ox 04/21/17 08:00 97.5 F 90 27 H 124/67 98 04/21/17 07:15 85 18 98 04/21/17 03:43 97.5 F 69 25 H 128/86 97 04/21/17 03:10 95 H 24 96 04/21/17 00:01 86 04/21/17 00:00 97.3 F 86 26 H 118/71 97 04/20/17 23:30 81 20 97 04/20/17 20:00 97.9 F 89 21 115/60 97 04/20/17 19:15 94 H 24 96 04/20/17 16:00 87 04/20/17 15:00 98.1 F 87 21 91/55 96 04/20/17 14:44 88 24 98 04/20/17 12:00 94 H 04/20/17 11:00 98.3 F 91 H 26 H 112/70 95 04/20/17 10:50 97 H 22 98 Oxygen-Last 24 hours O2 Percentage 4 Liters = 36% O2 Percentage 4 Liters = 36% O2 Percentage 4 Liters = 36% O2 Percentage 50% Oxygen Flowrate (L/min)-RT 30 Oxygen Flowrate (L/min)-RT 30 Oxygen Flowrate (L/min)-RT 30 Pain Assessment - Last Documented Pain Intensity 0 Pain Scale Used 0-10 Pain Scale Intake and Output: Intake & Output 04/18/17 04/19/17 04/20/17 04/21/17 11:59 11:59 11:59 11:59 Intake Total 1023 4905 3685 Output Total 1030 2860 3420 Balance -7 2124 265 Weight 76 kg 77.3 kg 78.7 kg Radiology Exams: Radiology Procedures Category Date Time Status Ultrasound Unilateral Extremities [VENOUS UNILAT/ Exams 04/19/17 09:00 Completed LIMITED EXTREMIT] [US] Routine Multi-Disciplinary Progress Notes: Multi-Disciplinary Progress Notes 04/20/17 15:25 Respiratory Note by Shante Sandhu 1520 PTS WOB INCREASING PLACED BACK ON HIGHFLOW 35% AT 30 L Initialized on 04/20/17 15:25 - END OF NOTE Assessment/Plan (1) Acute hypoxemic respiratory failure Current Visit: Yes Status: Acute Assessment & Plan: secondary to severe copd and influenza showing slow improvement continue to wean O2 as tolerated will decrease steroids a little today d/c the zosyn without evidence of inflitaret continue azithromycin for now transfer to med surg continue nebs Code(s): J96.01 - ACUTE RESPIRATORY FAILURE WITH HYPOXIA (2) Influenza A Current Visit: Yes Status: Acute Code(s): J10.1 - FLU DUE TO OTH IDENT INFLUENZA VIRUS W OTH RESP MANIFEST (3) COPD exacerbation Current Visit: Yes Status: Acute Code(s): J44.1 - CHRONIC OBSTRUCTIVE PULMONARY DISEASE W (ACUTE) EXACERBATION (4) Coronary artery disease Current Visit: Yes Status: Chronic Code(s): I25.10 - ATHSCL HEART DISEASE OF [place] CORONARY ARTERY W/O ANG PCTRS (5) Tobacco abuse Current Visit: Yes Status: Chronic Code(s): Z72.0 - TOBACCO USE
[2017-04-21] MEDS ORDERED: PROVENTIL COMMON CANISTER IH PRN (09:46)
[2017-04-21] MEDS: Zithromax 250 MG TABLET PO SCH (10:37)
[2017-04-21] MEDS: Ativan 2 MG/1 ML VIAL IV PRN ×2 (17:06→22:02)
[2017-04-21] MEDS: TYLENOL 325 MG PO PRN (22:01)
[2017-04-21] MEDS: LIPITOR 40MG PO SCH (22:01)
[2017-04-22] MEDS: DUONEB 0.5-3 MG/3 ml Neb IH SCH ×6 (03:53→23:45)
[2017-04-22] MEDS: MORPHINE SULFATE 2 MG INJ IV PRN ×3 (04:33→16:02)
[2017-04-22] MEDS: solu-MEDROL 125 MG IV SCH (06:30)
--- NOTE | 2017-04-22 08:01 | PCM.NOTE ---
Date and Time: 04/22/17 0759 Subjective Assessment: still very short of breath with minimal exertion eating well 1 bm per day still requires 4L nc O2 Objective Exam General Appearance: no apparent distress Neurologic Exam: alert, oriented x 3, cooperative Skin Exam: warm, dry Ears, Nose, Throat Exam: moist mucous membranes Neck Exam: non-tender, supple Respiratory Exam: wheezing Cardiovascular Exam: regular rate/rhythm, normal heart sounds, No murmur Extremity Exam: normal inspection, No calf tenderness OBJECTIVE DATA Vital Signs: Vital Signs - 24 hr Temp Pulse Resp BP Pulse Ox 04/22/17 07:26 97.8 F 88 22 141/76 95 04/22/17 07:15 82 26 H 97 04/22/17 04:00 98.3 F 85 17 118/57 95 04/22/17 03:53 85 17 95 04/22/17 00:00 98.2 F 91 H 28 H 117/71 97 04/21/17 23:39 97 H 22 96 04/21/17 20:00 98.0 F 107 H 25 H 136/82 95 04/21/17 19:32 107 H 26 H 94 L 04/21/17 17:19 98 H 24 94 L 04/21/17 16:09 97.7 F 90 22 138/61 93 L 04/21/17 15:16 98 H 22 91 L 04/21/17 12:00 97.8 F 78 24 107/66 96 04/21/17 10:33 78 22 98 04/21/17 08:00 97.5 F 90 27 H 124/67 98 Oxygen-Last 24 hours O2 Percentage 4 Liters = 36% O2 Percentage 4 Liters = 36% O2 Percentage 4 Liters = 36% O2 Percentage 4 Liters = 36% O2 Percentage 4 Liters = 36% O2 Percentage 4 Liters = 36% O2 Percentage 4 Liters = 36% Pain Assessment - Last Documented Pain Intensity 4 Pain Scale Used [facility] Intake and Output: Intake & Output 04/19/17 04/20/17 04/21/17 04/22/17 11:59 11:59 11:59 11:59 Intake Total 1023 0184 4165 1220 Output Total 1030 6830 4245 1600 Balance -7 2124 -80 -380 Weight 76 kg 77.3 kg 78.7 kg 83.5 kg Radiology Exams: Radiology Procedures Category Date Time Status CHEST 1 VIEW (PORTABLE) Routine Exams 04/22/17 07:57 Ordered Assessment/Plan (1) Acute hypoxemic respiratory failure Current Visit: Yes Status: Acute Assessment & Plan: improving will likely need O2 still at discharge will repeat cxr with the slow improvement continue tamiflu azithromycin wean iv steroid to po prednisone at 60 mg daily increase activity as tolerated Code(s): J96.01 - ACUTE RESPIRATORY FAILURE WITH HYPOXIA (2) Influenza A Current Visit: Yes Status: Acute Code(s): J10.1 - FLU DUE TO OTH IDENT INFLUENZA VIRUS W OTH RESP MANIFEST (3) COPD exacerbation Current Visit: Yes Status: Acute Code(s): J44.1 - CHRONIC OBSTRUCTIVE PULMONARY DISEASE W (ACUTE) EXACERBATION (4) Coronary artery disease Current Visit: Yes Status: Chronic Code(s): I25.10 - ATHSCL HEART DISEASE OF [place] CORONARY ARTERY W/O ANG PCTRS (5) Tobacco abuse Current Visit: Yes Status: Chronic Code(s): Z72.0 - TOBACCO USE
[2017-04-22] MEDS: Ativan 2 MG/1 ML VIAL IV PRN ×3 (08:22→23:27)
--- NOTE | 2017-04-22 08:59 | XRAY ---
Indication: COPD exacerbation. Comparison: April 18, 2017. Portable chest remains hyperinflated and clear. Heart and mediastinal structures are stable and within normal limits again demonstrating previous CABG surgery. No new/acute findings. Impression: Stable nonacute hyperinflated chest.
[2017-04-22] MEDS: Pepcid 20 MG VIAL IV SCH ×2 (09:37→23:26)
[2017-04-22] MEDS: Zestril 5 MG PO SCH (09:44)
[2017-04-22] MEDS: Zithromax 250 MG TABLET PO SCH (09:44)
[2017-04-22] MEDS: PLAVIX 75 MG Tablet PO SCH (09:44)
[2017-04-22] MEDS: DELTASONE 20 MG PO SCH (09:44)
[2017-04-22] MEDS: TYLENOL 325 MG PO PRN (09:45)
[2017-04-22] MEDS: Tamiflu 75MG Capsule PO SCH ×2 (09:45→23:27)
[2017-04-22] MEDS: Lopressor 50 MG PO SCH ×2 (09:45→23:26)
[2017-04-22] MEDS: ENOXAPARIN SODIUM SQ SCH (09:45)
[2017-04-22] MEDS: LIPITOR 40MG PO SCH (23:26)
[2017-04-23] MEDS: DUONEB 0.5-3 MG/3 ml Neb IH SCH ×6 (03:54→23:28)
[2017-04-23] MEDS: Ativan 2 MG/1 ML VIAL IV PRN ×2 (07:57→21:12)
[2017-04-23] MEDS: Lopressor 50 MG PO SCH ×2 (10:03→21:10)
[2017-04-23] MEDS: ENOXAPARIN SODIUM SQ SCH (10:03)
[2017-04-23] MEDS: Tamiflu 75MG Capsule PO SCH (10:03)
[2017-04-23] MEDS: PLAVIX 75 MG Tablet PO SCH (10:03)
[2017-04-23] MEDS: DELTASONE 20 MG PO SCH (10:03)
[2017-04-23] MEDS: Zithromax 250 MG TABLET PO SCH (10:04)
[2017-04-23] MEDS: Pepcid 20 MG VIAL IV SCH ×2 (10:04→21:10)
[2017-04-23] MEDS: Zestril 5 MG PO SCH ×2 (10:04→10:06)
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
[2017-04-23] MEDS: LIPITOR 40MG PO SCH (21:10)
[2017-04-23] MEDS: MORPHINE SULFATE 2 MG INJ IV PRN (22:15)
[2017-04-23] MEDS: TYLENOL 325 MG PO PRN (22:16)
[2017-04-24] MEDS: DUONEB 0.5-3 MG/3 ml Neb IH SCH ×2 (03:58→06:54)
[2017-04-24] MEDS: TYLENOL 325 MG PO PRN (04:28)
[2017-04-24 07:50] VITALS: BP 135/67; PULSE 79; O2SAT 93
--- NOTE | 2017-04-24 08:50 | PCM.DS ---
Discharge Summary Date of Admission: 04/18/17 16:10 Date of Discharge: 04/24/2017 Admitting Physician: DREA WRIGHT Primary Care Provider: NO FAMILY DOCTOR Allergies Allergies naproxen Adverse Reaction (Severe, Verified 04/18/17 16:40) difficulty breathing Hospital Summary - Hospital Course Hospital Course: He has long tobacco smoking history with cabg 1 year ago and was discharged after copd exacerbation and was doing better for about 2 days and then developed high fever and worsening shortness of breath. He tried to get better at home but was unable to lay down. He had to sit straight up at his kitchen table and was unable to tolerate intake due to the shortness of breath. He did this for about 3 days before he was finally too weak to stand up and his adopted daughter called ems. He was in severe respiratory distress treated with high dose steroids and high flow oxygen. He was positive for influenza A and treated with tamiflu. He was initially in the ICU and was still tachypneic despite the high flow oxygen but with the steroids antibiotics and tamiflu he improved. With his initial presentation he was covered in the ED with zosyn and azithromycin on Friday the zosyn was dropped and he received azithromycin throughout the admission as well as tamiflu. He improved but was still severely dyspneic his steroid was weaned to 60 mg of prednisone on 04/22. He was weaned off oxygen on 04/23 but overnight pulse ox study shows need for O2 at night. He still easily tires but this is significantly improved. He will f/u outpatient for a sleep study. He is working on alternative living arrangements as he currently lives with multiple smokers in the home - Vitals & Intake/Output Vital Signs: Vital Signs Temperature 97.9 F 04/24/17 07:50 Pulse Rate 79 04/24/17 07:50 Respiratory Rate 18 04/24/17 07:50 Blood Pressure 135/67 04/24/17 07:50 O2 Sat by Pulse Oximetry 93 L 04/24/17 07:50 Oxygen-Last Documented O2 Percentage 2 Liters = 28% Intake & Output: Intake & Output 04/21/17 04/22/17 04/23/17 04/24/17 11:59 11:59 11:59 11:59 Intake Total 4165 1220 1880 2100 Output Total 4245 2000 1460 1400 Balance -80 -780 420 700 Weight 78.7 kg 83.5 kg 85.4 kg 85.1 kg - Lab Result Diagrams: 04/19/17 04:00 04/19/17 04:00 - Radiology Exams Ordered Rad Exams-Entire Visit: Radiology Procedures Category Date Time Status CHEST 1 VIEW (PORTABLE) Routine Exams 04/22/17 08:16 Completed - Procedures and Test Procedures and Tests throughout Hospitalization: Therapy Orders & Screens 04/18/17 14:00 Oxygen High Flow High Flow 45 lpm Comment: Diagnosis: Shortness of Breath 04/18/17 18:00 OT Screen per Nursing Assess Comment: Protocol Order Physician Instructions: Greater than 3 points order OT Admission Screening Reason For Exam: Triggered on Admission Diagnosis: COPD exacerbation, acute resp. distress. Influenza A Open Wound/Cellutlitis/Pressure Ulcers: No Acute Fx/ORIF/Change in wt bearing status: No Severe MUSCULOSKELETAL pain: No ADL Dysfunction: Yes Acute CVA w/Hemiparesis/Hemiplegia: No Decreased Functional Mobility/Strength: Yes Sprain/Strain: No Acute Post-op Mobility Dysfunction: No Total Points: 4 PT Screen per Nursing Assess ONCE Comment: Protocol Order Physician Instructions: Greater than 3 points order PT Admission Screenin Reason For Exam: Triggered on Admission Diagnosis: COPD exacerbation, acute resp. distress. Influenza A Open Wound/Cellutlitis/Pressure Ulcers: No Acute Fx/ORIF/Change in wt bearing status: No Severe MUSCULOSKELETAL pain: No ADL Dysfunction: Yes Acute CVA w/Hemiparesis/Hemiplegia: No Decreased Functional Mobility/Strength: Yes Sprain/Strain: No Acute Post-op Mobility Dysfunction: No Total Points: 4 04/18/17 19:00 Respiratory Nebulizer Q4H Comment: ELIUD Q4 Diagnosis: Shortness of Breath 04/19/17 14:22 Smoking Cessation Education ONCE Comment: Diagnosis: COPD exacerbation, acute resp. distress. Influenza A Smoking Status: Former smoker How long have you smoked: 48 years Have you smoked in the past 12 months: Yes Approximately how many cigarettes per day: pack a day Do you dip or chew tobacco: No If,Former Smoker,when did you quit: week ago 04/21/17 07:15 Oxygen NASAL CANNULA 4 lpm Comment: Diagnosis: COPD exacerbation, acute resp. distress. Influenza A 04/21/17 17:19 Respiratory Nebulizer UD Comment: Diagnosis: COPD exacerbation, acute resp. distress. Influenza A Discharge Exam General Appearance: no apparent distress, alert Neurologic Exam: alert, oriented x 3, cooperative, normal mood/affect, nml cerebellar function, sensation nml, No motor deficits Skin Exam: normal color, warm, dry Eye Exam: PERRL, EOMI, eyes nml inspection Ears, Nose, Throat Exam: normal ENT inspection, pharynx normal, moist mucous membranes Neck Exam: normal inspection, non-tender, supple, full range of motion Respiratory Exam: wheezing, No respiratory distress Cardiovascular Exam: regular rate/rhythm, normal heart sounds Gastrointestinal/Abdomen Exam: soft, No tenderness, No mass Extremity Exam: normal inspection, normal range of motion Back Exam: normal inspection, normal range of motion, No CVA tenderness, No vertebral tenderness Male Genitalia Exam: deferred Rectal Exam: deferred Final Diagnosis/Problem List - Final Discharge Diagnosis/Problem (1) Acute hypoxemic respiratory failure Current Visit: Yes Status: Acute (2) Influenza A Current Visit: Yes Status: Acute (3) COPD exacerbation Current Visit: Yes Status: Acute (4) Coronary artery disease Current Visit: Yes Status: Chronic (5) Tobacco abuse Current Visit: Yes Status: Chronic - Discharge Discharge Date: 04/24/17 Disposition: Home, Self-Care Condition: Stable Prescriptions: Continue Prednisone 10 mg [Deltasone 10 mg] 10 mg PO UD #34 tablet Doxycycline Hyclate 100 mg PO BID #12 capsule Atorvastatin Calcium [Lipitor] 40 mg PO HS #30 tablet Metoprolol Tartrate 50 mg PO BID #60 tablet Clopidogrel Bisulfate 75 mg [PLAVIX 75 MG Tablet] 75 mg PO DAILY #30 tablet Albuterol 2.5 mg/3 ml Neb [Proventil 2.5 mg/3 ml Neb] 2.5 mg IH Q4HPRN PRN #100 neb PRN Reason: Shortness Of Breath/Wheezing Albuterol Sulfate [Ventolin Hfa] 1 puff IH Q4H PRN #1 inh PRN Reason: Shortness Of Breath Lisinopril [Zestril] 2.5 mg PO DAILY #30 tablet Fluticasone/Vilanterol [Breo Ellipta 200-25 Mcg INH] 1 puff IH DAILY Additional Instructions: home nebulizer machine for his severe copd Night time oxygen at 2L nc for nocturnal hypoxia due to copd Needs evaluation for sleep apnea with outpatient sleep study Follow up with: DREA WRIGHT [ACTIVE STAFF] - 1 Week Forms: Patient Portal Information
[2017-04-24] MEDS: Lopressor 50 MG PO SCH (09:47)
[2017-04-24] MEDS: Zithromax 250 MG TABLET PO SCH (09:48)
[2017-04-24] MEDS: PLAVIX 75 MG Tablet PO SCH (09:48)
[2017-04-24] MEDS: Zestril 5 MG PO SCH (09:48)
[2017-04-24] MEDS: Pepcid 20 MG VIAL IV SCH ×2 (09:49→09:59)
[2017-04-24] MEDS: DELTASONE 20 MG PO SCH (09:49)
[2017-04-24] MEDS: ENOXAPARIN SODIUM SQ SCH (09:49)
== END 2017-04-24 10:51 | disposition home or self-care (01) | DRG 189 ==
LOC: ED 13:51 → ICU 16:10 → MED SURG 04-21 13:20
PROVIDERS: ADMIT Family Medicine; ATTEND Family Medicine
DX: J96.01 Acute respiratory failure with hypoxia (principal); J18.9 Pneumonia, unspecified organism; J44.1 Chronic obstructive pulmonary disease with (acute) exacerbation; I25.810 Atherosclerosis of coronary artery bypass graft(s) without angina pectoris; J10.1 Influenza due to other identified influenza virus with other respiratory manifestations; Z72.0 Tobacco use; Z79.899 Other long term (current) drug therapy; I25.2 Old myocardial infarction
CPT/HCPCS: 36000; 36415; 36600; 71045; 80053; 81000; 82375; 82803; 82805; 83605; 83735; 84484; 85025; 85379; 85610; 85730; 87040; 87086; 87631; 93005; 93041; 93971; 94620; 94640; 94760; 94761; 94762; 96360; 96365; 96366; 96374; 99285; J0456; J1650; J2060; J2270; J2543; J2930; A9270-GY

== ENCOUNTER 2017-09-05 20:59 | Emergency (ER) | payer OTHER, SELFPAY ==
[2017-09-05] MEDS ORDERED: Adacel Vial IM ONE ×2 (21:11→21:20)
[2017-09-05] MEDS ORDERED: MORPHINE SULFATE 4 MG INJ IV ONE (21:12)
[2017-09-05] MEDS ORDERED: KEFZOL 1 GM/50 ML PREMIX** 1 GM/50 ML IVPB IV STA (21:12)
[2017-09-05] MEDS ORDERED: MORPHINE SULFATE 4 MG INJ ONE (21:20)
[2017-09-05] MEDS ORDERED: KEFZOL 1 GM/50 ML PREMIX** 1 GM/50 ML IVPB IV ONE (21:20)
--- NOTE | 2017-09-05 21:21 | ERPHSYRPT ---
- History of Present Illness Time Seen by Provider: 09/05/17 21:10 Source: patient Exam Limitations: no limitations Patient Subjective Stated Complaint: pt states he was walking up the street and a black lab ran up to him and bit him on his right posterior upper leg/thigh proximal to the popliteal; states the dog agency owner immediately arrived and advised dog is not up to date on immunizations. Triage Nursing Assessment: pt a&o x3; skin p, w, & d; puncture wounds noted to right posterior thigh; bleeding controlled lighter captain; no other distress noted at this time. Physician History: 56 y/o male comes to the ER after getting bit by a dog on the inner right thigh. Pt mentions that the agency owner said that the dog was not up to date on his vaccinations. The patient does not know when he received his last tetanus shot. Pt is on coumadin and said that the bleeding was difficult to stop. Pt describes the pain as sharp, constant, 6/10 and pt has not taken any pain meds. Timing/Duration: today Quality: painful Severity: moderate Location: extremities Possible Causes: other (dog bite) Allergies/Adverse Reactions: naproxen Adverse Reaction (Severe, Verified 09/05/17 21:15) difficulty breathing Home Medications: Fluticasone/Vilanterol [Breo Ellipta 200-25 Mcg INH] 1 puff IH DAILY 04/18/17 [ History] Hx Tetanus, Diphtheria Vaccination/Date Given: No Hx Influenza Vaccination/Date Given: Yes Hx Pneumococcal Vaccination/Date Given: Yes Immunizations Up to Date: No - Review of Systems Constitutional: No Fever, No Chills Eyes: No Symptoms Ears, Nose, & Throat: No Symptoms Respiratory: No Cough, No Dyspnea Cardiac: No Chest Pain, No Edema, No Syncope Abdominal/Gastrointestinal: No Abdominal Pain, No Nausea, No Vomiting, No Diarrhea Genitourinary Symptoms: No Dysuria Musculoskeletal: No Back Pain, No Neck Pain Skin: Skin Lesions, Other (puncture wound left posterior thigh), No Rash Neurological: No Dizziness, No Focal Weakness, No Sensory Changes Psychological: No Symptoms Endocrine: No Symptoms All Other Systems: Reviewed and Negative - Past Medical History Pertinent Past Medical History: Yes Neurological History: No Pertinent History ENT History: No Pertinent History Cardiac History: Myocardial Infarction ([place]) Respiratory History: COPD Endocrine Medical History: No Pertinent History Musculoskeletal History: No Pertinent History GI Medical History: No Pertinent History History: No Pertinent History Psycho-Social History: No Pertinent History Male Reproductive Disorders: No Pertinent History Other Medical History: Pt reports that partner reported to him that she tested positive for an STD but he is unsure which one it is. Pt states he see's Dr. Segura for his heart and Dr. Margarito Power for his lungs. Pt denies hx of HTN or high cholesterol but is on medication for both - Past Surgical History Past Surgical History: Yes Neuro Surgical History: No Pertinent History Cardiac: CABG Gastrointestinal: No Pertinent History Genitourinary: No Pertinent History Musculoskeletal: No Pertinent History Male Surgical History: No Pertinent History Other Surgical History: Pt reports having CABG in March of this year. - Social History Smoking Status: Current every day smoker How long have you smoked: 46 years Exposure to second hand smoke: No Drug Use: none Patient Lives Alone: No - Nursing Vital Signs Nursing Vital Signs: Initial Vital Signs Temperature 98 F 09/05/17 21:04 Pulse Rate 90 09/05/17 21:04 Respiratory Rate 16 09/05/17 21:04 Blood Pressure 115/66 09/05/17 21:04 O2 Sat by Pulse Oximetry 97 09/05/17 21:04 Pain Scale Pain Intensity 0 - Physical Exam General Appearance: mild distress, alert Eye Exam: PERRL/EOMI, eyes nml inspection Ears, Nose, Throat Exam: normal ENT inspection, pharynx normal, moist mucous membranes Neck Exam: normal inspection, non-tender, supple, full range of motion Respiratory Exam: normal breath sounds, lungs clear, No respiratory distress Cardiovascular Exam: regular rate/rhythm, normal heart sounds Gastrointestinal/Abdomen Exam: soft, mass, No tenderness Back Exam: normal inspection, normal range of motion, No CVA tenderness, No vertebral tenderness Extremity Exam: normal range of motion, swelling, tenderness (puncture wound left posterior thigh), other Neurologic Exam: alert, oriented x 3, cooperative, normal mood/affect, sensation nml, No motor deficits Skin Exam: normal color, warm, dry SpO2: 97 Oxygen Delivery: Room Air - Course Nursing assessment & vital signs reviewed: Yes Ordered Tests: Active Orders 24 hr Category Date Time Status IV Insertion STAT Care 09/05/17 21:11 Active Medication Summary Discontinued Medications Generic Name Dose Route Start Last Admin Trade Name Freq PRN Reason Stop Dose Admin Diphtheria/Tetanus/Acell Pertussis 0.5 ml 09/05/17 21:11 09/05/17 21:34 Adacel Vial IM 09/05/17 21:12 0.5 ml .ONCE ONE Administration Diphtheria/Tetanus/Acell Pertussis Confirm 09/05/17 21:20 Adacel Vial Administered 09/05/17 21:21 Dose 0.5 ml IM .STK-MED ONE Cefazolin Sodium/Dextrose 1 gm in 50 mls @ 100 mls/hr 09/05/17 21:12 22:28 Kefzol 1 Gm/50 Ml Premix IV 09/05/17 21:41 Infused STAT STA Infusion Cefazolin Sodium/Dextrose Confirm 09/05/17 21:20 Kefzol 1 Gm/50 Ml Premix Administered 09/05/17 21:21 Dose 1 gm in 50 mls @ ud IV .STK-MED ONE Morphine Sulfate 4 mg 09/05/17 21:12 09/05/17 21:38 Morphine Sulfate 4 Mg Inj IV 09/05/17 21:13 4 mg STAT ONE Administration Morphine Sulfate Confirm 09/05/17 21:20 Morphine Sulfate 4 Mg Inj Administered 09/05/17 21:21 Dose 4 mg .ROUTE .STK-MED ONE - Progress Progress: improved Progress Note: 09/05/17 22:44 Pt feels better after being given morphine, ancef and boostrix. Pt will be d/c home on augmentin and norco. Pt will also have coumadin held for tonight and will F/U with PCP on Friday. - Departure Time of Disposition: 22:45 Departure Disposition: Home Clinical Impression: Dog bite Qualifiers: Encounter type: initial encounter Qualified Code(s): W54.0XXA - Bitten by dog, initial encounter Condition: Stable Critical Care Time: No Referrals: DOCTOR,NO FAMILY [NON-STAFF PHY W/O PRIVILEGES] - Instructions: Animal Bites (DC) Additional Instructions: Hold coumadin for tonight and resume tomorrow night. Follow up with your primary care doctor on Friday. Prescriptions: Amox Tr/Potass Clav. 875 mg [Augmentin 875-125 Tablet] 875 mg PO BID #20 tablet Hydrocodone/Acetaminophen [[place] 5-325 Tablet] 1 each PO QID PRN #12 tablet MDD 4 PRN Reason: Pain
[2017-09-05 23:25] VITALS: BP 119/67; PULSE 72; O2SAT 99
== END 2017-09-05 23:24 | disposition home or self-care (01) ==
LOC: ED 20:59
DX: S71.151A Open bite, right thigh, initial encounter (principal); W54.0XXA Bitten by dog, initial encounter; Z79.01 Long term (current) use of anticoagulants
CPT/HCPCS: 36000; 90471; 90715; 96365; 96374; 99284; J0690; J2270

== ENCOUNTER 2018-01-30 22:27 | Emergency (ER) | payer OTHER ==
--- NOTE | 2018-01-30 22:43 | ERPHSYRPT ---
- History of Present Illness Time Seen by Provider: 01/30/18 22:42 Source: patient, EMS Exam Limitations: no limitations Patient Subjective Stated Complaint: Loss of consciousness and syncope Triage Nursing Assessment: Patient brought in per EMS and transferred to bed. Patient was found by family unconsciousness. Once EMS arrived and he was put on cot he came to and didn't want to come to ED. Patient A+O X 3. Patient states he feels like he's in a tunnel and feels foggy. Patient complains of headache throbbing to front of head 12/08. Patient denies any other discomfort. Patient has dx of seizures, but unsure when last seizure was. Physician History: 57 y/o white male presents via EMS with altered level of consciousness and syncopal episode. pt has seizure d/o and has recently increasing dose of lamictal and decreasing dose of keppra. pt noticed to be looking off in the distance at home. family took him to bed to lay down. soon after pt fell( unwitnessed), family heard the fall and pt was breathing fine but unresponsive. EMS arrived at scene, bs 88, vss breathing well but persistently unresponsive. pt then suddenly became fully rousable on his own. he arrives to ED with headache, in a fog. lights bother him. no n/v/d, no loss of bowel or bladder control. pt now awake alert and oriented X3 Witnessed: unwitnessed Prior Episodes: no prior history Timing/Duration: today, resolved prior to arrival, improved Precipitating Factors: unknown (possible change in seizure medication) Loss of Consciousness: no loss of consciousness, brief (seconds), dazed Charcter of event(s): became unresponsive Allergies/Adverse Reactions: naproxen Adverse Reaction (Severe, Verified 01/30/18 22:41) difficulty breathing Home Medications: Fluticasone/Vilanterol [Breo Ellipta 200-25 Mcg INH] 1 puff IH DAILY 04/18/17 [ History] Hx Tetanus, Diphtheria Vaccination/Date Given: No Hx Influenza Vaccination/Date Given: Yes Hx Pneumococcal Vaccination/Date Given: Yes Immunizations Up to Date: Yes - Past Medical History Pertinent Past Medical History: Yes Neurological History: No Pertinent History ENT History: No Pertinent History Cardiac History: Myocardial Infarction ([place]) Respiratory History: COPD Endocrine Medical History: No Pertinent History Musculoskeletal History: No Pertinent History GI Medical History: No Pertinent History History: No Pertinent History Psycho-Social History: No Pertinent History Male Reproductive Disorders: No Pertinent History Other Medical History: Pt reports that partner reported to him that she tested positive for an STD but he is unsure which one it is. Pt states he see's Dr. Segura for his heart and Dr. Margarito Power for his lungs. Pt denies hx of HTN or high cholesterol but is on medication for both - Past Surgical History Past Surgical History: Yes Neuro Surgical History: No Pertinent History Cardiac: CABG Gastrointestinal: No Pertinent History Genitourinary: No Pertinent History Musculoskeletal: No Pertinent History Male Surgical History: No Pertinent History Other Surgical History: Pt reports having CABG in March of this year. - Social History Smoking Status: Current every day smoker How long have you smoked: 46 years Exposure to second hand smoke: No Drug Use: marijuana Patient Lives Alone: No - Review of Systems Constitutional: No Symptoms Eyes: Photophobia, No Vision Changes, No Double Vision Ears, Nose, & Throat: No Symptoms Respiratory: No Symptoms, No Cough, No Dyspnea, No Stridor, No Wheezing Cardiac: No Symptoms, No Chest Pain, No Palpitations, No Syncope Abdominal/Gastrointestinal: No Symptoms, No Abdominal Pain, No Nausea, No Vomiting, No Diarrhea Genitourinary Symptoms: No Symptoms, No Dysuria, No Frequency, No Hematuria Musculoskeletal: No Symptoms, Neck Pain, Fall, No Back Pain, No Deformity, No Injury Skin: No Symptoms Neurological: Headache, Irritability Psychological: No Symptoms Endocrine: No Symptoms Hematologic/Lymphatic: No Symptoms Immunological/Allergic: No Symptoms All Other Systems: Reviewed and Negative Physical Exam - Nursing Vital Signs Nursing Vital Signs: Initial Vital Signs Temperature 98.4 F 01/30/18 22:32 Pulse Rate 73 01/30/18 22:32 Respiratory Rate 18 01/30/18 22:32 Blood Pressure 144/81 01/30/18 22:32 O2 Sat by Pulse Oximetry 97 01/30/18 22:32 Pain Scale Pain Intensity 3 - Jose Coma Scale Best Eye Response ([place]): (4) open spontaneously Best Verbal Response (Jose): (5) oriented Best Motor Response ([place]): (6) obeys commands Jose Total: 15 - Physical Exam General Appearance: mild distress, alert, anxiety Eye Exam: bilateral eye: normal inspection, PERRL, EOMI Ears, Nose, Throat Exam: normal ENT inspection, TMs normal, pharynx normal, moist mucous membranes Neck Exam: normal inspection, non-tender, supple, full range of motion Respiratory: normal breath sounds, lungs clear, airway intact, No chest tenderness, No respiratory distress, No accessory muscle use, No rhonchi, No wheezing, No stridor Cardiovascular: regular rate/rhythm, normal heart sounds, normal peripheral pulses Gastrointestinal: soft, normal bowel sounds, No tenderness, No distention, No mass, No guarding, No rebound Rectal Exam: not done Back Exam: normal inspection, normal range of motion, No CVA tenderness, No vertebral tenderness, No muscle spasm Extremity Exam: normal inspection, normal range of motion, pelvis stable Mental Status: alert, oriented x 3, cooperative rough rounder machine Exam: normal hearing, normal speech, PERRL, tongue midline Coordination/Gait: normal finger to nose Motor/Sensory: no motor deficit, no sensory deficit, no pronator drift Skin Exam: normal color, warm, dry SpO2 Interpretation: normal SpO2: 97 Oxygen Delivery: Room Air - Course Nursing assessment & vital signs reviewed: Yes EKG Interpreted by Me: RATE (68), Sinus Rhythm, NORMAL AXIS, NORMAL INTERVALS, NORMAL QRS, NORMAL ST-T (no acute ischemia; no change when compared to EKG date04/18/17) Ordered Tests: Active Orders 24 hr Category Date Time Status Site Surveyor STAT Care 01/30/18 23:03 Active Clean Catch Urine Specimen STAT Care 01/30/18 23:01 Active EKG-ER Only STAT Care 01/30/18 23:01 Active IV Insertion STAT Care 01/30/18 23:01 Active Pulse Oximetry (ED) STAT Care 01/30/18 23:01 Active CERVICAL SPINE WO CONTRAST [CT] Stat Exams 01/30/18 23:02 Taken HEAD WITHOUT CONTRAST [CT] Stat Exams 01/30/18 23:02 Taken CBC W DIFF Stat Lab 01/30/18 23:16 Completed CMP Stat Lab 01/30/18 23:16 Completed ETHYL ALCOHOL Stat Lab 01/30/18 23:16 Completed TROPONIN Q3H Lab 01/31/18 00:00 Completed TROPONIN Q3H Lab 01/31/18 05:00 Ordered TROPONIN Q3H Lab 01/31/18 08:00 Ordered TROPONIN Q3H Lab 01/31/18 11:00 Ordered TROPONIN Q3H Lab 01/31/18 14:00 Ordered UA W/RFX UR CULTURE Stat Lab 01/31/18 01:11 Completed Urine Triage Profile Stat Lab 01/31/18 01:11 Completed Medication Summary Generic Name Dose Route Start Last Admin Trade Name Pedro PRN Reason Stop Dose Admin Sodium Chloride 1,000 mls @ 100 mls/hr 01/30/18 23:15 01/31/18 00:41 Sodium Chloride 0.9% 1000 Ml IV 03/01/18 23:14 100 mls/hr .Q10H ANDREW Administration Discontinued Medications Generic Name Dose Route Start Last Admin Trade Name Pedro PRN Reason Stop Dose Admin Hydromorphone HCl 0.5 mg 01/31/18 01:46 01/31/18 02:08 Hydromorphone 1 Mg/Ml Ampule IV 01/31/18 01:47 0.5 mg STAT ONE Administration Hydromorphone HCl Confirm 01/31/18 02:03 Hydromorphone 1 Mg/Ml Ampule Administered 01/31/18 02:04 Dose 1 mg .ROUTE .STK-MED ONE Ondansetron HCl 4 mg 01/31/18 01:46 01/31/18 02:08 Zofran 4 Mg/2 Ml Vial IV 01/31/18 01:47 4 mg STAT ONE Administration Ondansetron HCl Confirm 01/31/18 02:03 Zofran 4 Mg/2 Ml Vial Administered 01/31/18 02:04 Dose 4 mg .ROUTE .STK-MED ONE Lab/Rad Data: Laboratory Result Diagrams 01/30/18 23:16 01/30/18 23:16 Laboratory Results 01/31/18 01/31/18 01/31/18 Range/Units 01:11 01:11 00:00 WBC (4.0-10.5) K/mm3 RBC (4.1-5.6) M/mm3 Hgb (12.5-18.0) gm/dl Hct (42-50) % MCV (78-100) fl MCH (26-32) pg MCHC (32-36) g/dl RDW (11.5-14.0) % Plt Count (150-450) K/mm3 MPV (6-9.5) fl Gran % (36.0-66.0) % Eos # (Auto) (0-0.5) Absolute Lymphs (auto) (1.0-4.6) Absolute Monos (auto) (0.0-1.3) Lymphocytes % (24.0-44.0) % Monocytes % (0.0-12.0) % Eosinophils % (0.00-5.0) % Basophils % (0.0-0.4) % Absolute Granulocytes (1.4-6.9) Basophils # (0-0.4) Sodium (137-145) mmol/L Potassium (3.5-5.1) mmol/L Chloride (98-107) mmol/L Carbon Dioxide (22-30) mmol/L Anion Gap (5-15) MEQ/L BUN (9-20) mg/dL Creatinine (0.66-1.25) mg/dL Estimated GFR ML/MIN Glucose (74-106) mg/dL Calcium (8.4-10.2) mg/dL Total Bilirubin (0.2-1.3) mg/dL AST (17-59) U/L ALT (0-50) U/L Alkaline Phosphatase (38-126) U/L Troponin I < 0.012 (0.000-0.034) ng/mL Serum Total Protein (6.3-8.2) g/dL Albumin (3.5-5.0) g/dL Urine Color YELLOW (YELLOW) Urine Appearance CLEAR (CLEAR) Urine pH 6.0 (5-6) Ur Specific [place] 1.012 (1.005-1.025) Urine Protein NEGATIVE (Negative) Urine Ketones NEGATIVE (NEGATIVE) Urine Blood NEGATIVE (0-5) [place]/ul Urine Nitrite NEGATIVE (NEGATIVE) Urine Bilirubin NEGATIVE (NEGATIVE) Urine Urobilinogen NEGATIVE (0-1) mg/dL Ur Leukocyte Esterase NEGATIVE (NEGATIVE) Urine WBC (Auto) 0-2 (0-5) /HPF Urine RBC (Auto) NONE (0-2) /HPF U Epithel Cells (Auto) NONE (FEW) /HPF Urine Bacteria (Auto) NONE SEEN (NEGATIVE) /HPF Urine Mucus (Auto) SLIGHT (NEGATIVE) /HPF Urine Culture Reflexed NO (NO) Urine Glucose NEGATIVE (NEGATIVE) mg/dL Urine Opiates Level NEGATIVE (NEGATIVE) Ur Methadone NEGATIVE (NEGATIVE) Urine Barbiturates NEGATIVE (NEGATIVE) Ur Phencyclidine (PCP) NEGATIVE (NEGATIVE) Urine Amphetamine NEGATIVE (NEGATIVE) U Benzodiazepine Level NEGATIVE (NEGATIVE) Urine Cocaine NEGATIVE (NEGATIVE) Urine Marijuana (THC) POSITIVE (NEGATIVE) Ethyl Alcohol (0-10) mg/dL 01/30/18 01/30/18 Range/Units 23:16 23:16 WBC 6.6 (4.0-10.5) K/mm3 RBC 4.76 (4.1-5.6) M/mm3 Hgb 14.8 (12.5-18.0) gm/dl Hct 44.9 (42-50) % MCV 94.3 (78-100) fl MCH 31.1 (26-32) pg MCHC 33.0 (32-36) g/dl RDW 13.5 (11.5-14.0) % Plt Count 226 (150-450) K/mm3 MPV 9.9 H (6-9.5) fl Gran % 42.3 (36.0-66.0) % Eos # (Auto) 0.27 (0-0.5) Absolute Lymphs (auto) 2.89 (1.0-4.6) Absolute Monos (auto) 0.64 (0.0-1.3) Lymphocytes % 43.6 (24.0-44.0) % Monocytes % 9.7 (0.0-12.0) % Eosinophils % 4.1 (0.00-5.0) % Basophils % 0.3 (0.0-0.4) % Absolute Granulocytes 2.81 (1.4-6.9) Basophils # 0.02 (0-0.4) Sodium 140 (137-145) mmol/L Potassium 4.1 (3.5-5.1) mmol/L Chloride 102 (98-107) mmol/L Carbon Dioxide 31 H (22-30) mmol/L Anion Gap 11.9 (5-15) MEQ/L BUN 9 (9-20) mg/dL Creatinine 0.92 (0.66-1.25) mg/dL Estimated GFR > 60.0 ML/MIN Glucose 104 (74-106) mg/dL Calcium 9.2 (8.4-10.2) mg/dL Total Bilirubin 0.30 (0.2-1.3) mg/dL AST 19 (17-59) U/L ALT 15 (0-50) U/L Alkaline Phosphatase 127 H (38-126) U/L Troponin I (0.000-0.034) ng/mL Serum Total Protein 6.7 (6.3-8.2) g/dL Albumin 4.1 (3.5-5.0) g/dL Urine Color (YELLOW) Urine Appearance (CLEAR) Urine pH (5-6) Ur Specific [place] (1.005-1.025) Urine Protein (Negative) Urine Ketones (NEGATIVE) Urine Blood (0-5) [place]/ul Urine Nitrite (NEGATIVE) Urine Bilirubin (NEGATIVE) Urine Urobilinogen (0-1) mg/dL Ur Leukocyte Esterase (NEGATIVE) Urine WBC (Auto) (0-5) /HPF Urine RBC (Auto) (0-2) /HPF U Epithel Cells (Auto) (FEW) /HPF Urine Bacteria (Auto) (NEGATIVE) /HPF Urine Mucus (Auto) (NEGATIVE) /HPF Urine Culture Reflexed (NO) Urine Glucose (NEGATIVE) mg/dL Urine Opiates Level (NEGATIVE) Ur Methadone (NEGATIVE) Urine Barbiturates (NEGATIVE) Ur Phencyclidine (PCP) (NEGATIVE) Urine Amphetamine (NEGATIVE) U Benzodiazepine Level (NEGATIVE) Urine Cocaine (NEGATIVE) Urine Marijuana (THC) (NEGATIVE) Ethyl Alcohol < 10 (0-10) mg/dL - Progress Progress: improved, re-examined Progress Note: 01/31/18 02:18 pt states he is feeling better and ready to go home. denies cp, soa and abd pain. pt has headache but is improving after medication. 01/31/18 02:19 ct head-no acute process ct c spine-no acute process Counseled pt/family regarding: lab results, diagnosis, need for follow-up, rad results - Departure Time of Disposition: 02:20 Departure Disposition: Home Clinical Impression: Headache, Medication reaction Condition: Stable Critical Care Time: No Referrals: DAREN GARCIA [Primary Care Provider] - Additional Instructions: stay on same medications as prescribed. do not increase any of your medications. call your prescribing neurologist today and inform them of episode and to obtain instructions on your medications.
[2018-01-30] MEDS ORDERED: Sodium Chloride 0.9% 1000 ML 1,000 ML IV SCH (23:15)
[2018-01-30 23:20] LABS: BASOPHIL % 0.3 % (0.0-0.4); Basophil (Absolute #) 0.02 (0-0.4); Eosinophil % 4.1 % (0.00-5.0); Eosinophil (Absolute #) 0.27 (0-0.5); Granulocyte Absolute (ANC) 2.81 (1.4-6.9); Granulocytes % 42.3 % (36.0-66.0); Hematocrit 44.9 % (42-50); Hemoglobin 14.8 gm/dl (12.5-18.0); Lymphocyte (Absolute #) 2.89 (1.0-4.6); Lymphocytes % 43.6 % (24.0-44.0); Mean Cell Volume 94.3 fl (78-100); Mean Corpuscular Hemoglobin 31.1 pg (26-32); Mean Platelet Volume 9.9 fl (6-9.5); Monocyte (Absolute #) 0.64 (0.0-1.3); Monocytes % 9.7 % (0.0-12.0); Platelet Count 226 K/mm3 (150-450); Red Blood Count 4.76 M/mm3 (4.1-5.6); Red Cell Distribution Width 13.5 % (11.5-14.0); White Blood Count 6.6 K/mm3 (4.0-10.5)
[2018-01-30 23:36] LABS: ALBUMIN 4.1 g/dL (3.5-5.0); ALKALINE PHOSPHATASE 127 U/L (38-126); ANION GAP 11.9 MEQ/L (5-15); BLOOD UREA NITROGEN 9 mg/dL (9-20); CHLORIDE 102 mmol/L (98-107); Calcium 9.2 mg/dL (8.4-10.2); Carbon Dioxide 31 mmol/L (22-30); Creatinine 1 0.92 mg/dL (0.66-1.25); ETHYL ALCOHOL < 10 mg/dL (0-10); Glucose 104 mg/dL (74-106); Potassium 4.1 mmol/L (3.5-5.1); SGOT/AST 19 U/L (17-59); SGPT/ALT 15 U/L (0-50); SODIUM 140 mmol/L (137-145); Total Protein 6.7 g/dL (6.3-8.2)
[2018-01-31] MEDS ORDERED: Sodium Chloride 0.9% 1000 ML 1,000 ML ONE (00:41)
[2018-01-31 01:17] LABS: Appearance CLEAR (CLEAR); Bilirubin NEGATIVE (NEGATIVE); Blood NEGATIVE Ery/ul (0-5); Glucose NEGATIVE (NEGATIVE); Ketones NEGATIVE (NEGATIVE); Leukocyte Esterase NEGATIVE (NEGATIVE); Nitrite NEGATIVE (NEGATIVE); Protein,Urine Dip NEGATIVE (Negative); Specific Gravity 1.012 (1.005-1.025); Urobilinogen NEGATIVE mg/dL (0-1)
[2018-01-31 01:31] LABS: Amphetamine,Urine NEGATIVE (NEGATIVE); Barbiturate,Urine NEGATIVE (NEGATIVE); Benzodiazepine,Urine NEGATIVE (NEGATIVE); Cocaine,Urine NEGATIVE (NEGATIVE); Methadone,Urine NEGATIVE (NEGATIVE); Opiate,Urine NEGATIVE (NEGATIVE); PCP,Urine NEGATIVE (NEGATIVE); THC,Urine POSITIVE (NEGATIVE)
[2018-01-31] MEDS ORDERED: Hydromorphone 1 mg/ml Ampule IV ONE (01:46)
[2018-01-31] MEDS ORDERED: Zofran 4 MG/2 ML VIAL IV ONE (01:46)
[2018-01-31 02:01] VITALS: PULSE 63
[2018-01-31] MEDS ORDERED: Zofran 4 MG/2 ML VIAL ONE (02:03)
[2018-01-31] MEDS ORDERED: Hydromorphone 1 mg/ml Ampule ONE (02:03)
[2018-01-31 02:36] VITALS: BP 109/73; O2SAT 95
--- NOTE | 2018-01-31 08:35 | XRAY ---
Indication: Syncopal episode. Headache. Possible seizure. Multiple contiguous axial images obtained through the head without contrast. Comparison: None Normal appearing brain parenchyma, ventricles, and bony calvarium. Visualized paranasal sinuses and mastoid air cells are clear. Impression: Normal CT head without contrast exam. Comment: Preliminary interpretation was made by [facility]. No discrepancy. CTDI 49.11
--- NOTE | 2018-01-31 08:40 | XRAY ---
Indication: Neck pain. Syncopal episode. Headache. Possible seizure. Multiple contiguous axial images obtained through the cervical spine. Sagittal and coronal reformatted images obtained. Comparison: None Axial images negative for acute fracture, suspicious for lesions, or spinal canal stenosis. Mild C3-T1 degenerative endplate spurring. Sagittal and coronal reformatted images demonstrates cervical lordotic straightening, positional versus paraspinal spasm. C3-T1 disc space narrowing. No acute compression fracture, subluxation, or jumped facet. Normal appearing craniocervical junction. Visualized noncontrasted soft tissues demonstrates mild bilateral carotid calcifications. Lung apices clear. Impression: 1. Negative acute fracture/subluxation. 2. Cervical lordotic straightening, positional versus paraspinal spasm. 3. Multilevel degenerative changes. Comment: Preliminary interpretation was made by [facility]. No critical discrepancy. CTDI 61.51
== END 2018-01-31 02:38 | disposition home or self-care (01) ==
LOC: ED 22:27
DX: R51 Headache (principal); R55 Syncope and collapse; T50.905A Adverse effect of unspecified drugs, medicaments and biological substances, initial encounter; M54.2 Cervicalgia; W19.XXXA Unspecified fall, initial encounter; Y92.003 Bedroom of unspecified non-institutional (private) residence as the place of occurrence of the external cause
CPT/HCPCS: 36415; 70450; 72125; 80053; 80307; 81001; 84484; 85025; 93005; 93041; 96360; 96374; 96375; 99284; J1170; J2405; G0480

== ENCOUNTER 2021-01-18 08:07 | Emergency (ER) | payer MEDICARE ==
[2021-01-18] MEDS ORDERED: Zofran 4 MG/2 ML VIAL IV STA (08:27)
[2021-01-18] MEDS ORDERED: Sodium Chloride 0.9% 1000 ML 1,000 ML IV STA (08:27)
--- NOTE | 2021-01-18 08:27 | ERPHSYRPT ---
- History of Present Illness Time Seen by Provider: 01/18/21 08:15 Source: patient, EMS Exam Limitations: no limitations Patient Subjective Stated Complaint: PT states "I have had nausea vomiting and diarrhea. I was exposed to covid about 3 days ago." Triage Nursing Assessment: PT presented alert and oriented X 3, skin pwd Pt ambulates with an upright steady gait, able to speak in clear full sentences pt in no apparent shortness of breath but does have wheezing noted. Physician History: 60-year-old white male who presents via EMS with generalized weakness, nausea vomiting and diarrhea for approximately 3 days. Approximate 4 days ago patient was exposed to someone who was positive for Covid. Patient has a mild cough. He denies fevers. He denies chest pain. He has no new shortness of breath. Patient does smoke significantly and has done so for 48 years. He has a history of COPD, coronary artery disease, myocardial infarction, coronary artery bypass grafts. His pharmaceutical service representative is Dr. Segura and his game master is Dr. Margarito Power. Patient does have a seizure disorder and is on medication for this. Severity: moderate Associated Symptoms: nausea, vomiting, cough, loss of appetite, weakness, No shortness of breath, No chest pain, No fever Allergies/Adverse Reactions: naproxen Adverse Reaction (Severe, Verified 01/30/18 22:41) difficulty breathing Home Medications: Lamotrigine [Lamictal] 200 mg PO BID 01/18/21 [History] Levetiracetam [Keppra Xr] 500 mg PO BID 01/18/21 [History] Hx Tetanus, Diphtheria Vaccination/Date Given: No Hx Influenza Vaccination/Date Given: Yes Hx Pneumococcal Vaccination/Date Given: Yes Immunizations Up to Date: Yes Travel Risk - International Travel Have you traveled outside of the country in past 3 weeks: No - Coronavirus Screening Are you exhibiting any of the following symptoms?: No Close contact with a COVID-19 positive Pt in past 14-21 Days: No - Vaccine Status Have you recieved a Covid-19 vaccination: No - Review of Systems Constitutional: Weakness Eyes: No Symptoms Ears, Nose, & Throat: No Symptoms Respiratory: Cough Cardiac: No Symptoms Abdominal/Gastrointestinal: Nausea, Vomiting, Diarrhea, Appetite Changes, No Abdominal Pain Genitourinary Symptoms: No Symptoms Musculoskeletal: No Symptoms Skin: No Symptoms Neurological: No Symptoms Psychological: No Symptoms Endocrine: No Symptoms Hematologic/Lymphatic: No Symptoms Immunological/Allergic: No Symptoms All Other Systems: Reviewed and Negative - Past Medical History Pertinent Past Medical History: Yes Neurological History: No Pertinent History ENT History: No Pertinent History Cardiac History: Myocardial Infarction ([place]) Respiratory History: COPD Endocrine Medical History: No Pertinent History Musculoskeletal History: No Pertinent History GI Medical History: No Pertinent History History: No Pertinent History Psycho-Social History: No Pertinent History Male Reproductive Disorders: No Pertinent History Other Medical History: Pt reports that partner reported to him that she tested positive for an STD but he is unsure which one it is. Pt states he see's Dr. Segura for his heart and Dr. Margarito Power for his lungs. Pt denies hx of HTN or high cholesterol but is on medication for both - Past Surgical History Past Surgical History: Yes Neuro Surgical History: No Pertinent History Cardiac: CABG Gastrointestinal: No Pertinent History Genitourinary: No Pertinent History Musculoskeletal: No Pertinent History Male Surgical History: No Pertinent History Other Surgical History: Pt reports having CABG in March of this year. - Social History Smoking Status: Current every day smoker How long have you smoked: 46 years Exposure to second hand smoke: No Drug Use: marijuana Patient Lives Alone: No - Nursing Vital Signs Nursing Vital Signs: Initial Vital Signs Temperature 97.8 F 01/18/21 08:12 Pulse Rate 88 01/18/21 08:12 Respiratory Rate 22 01/18/21 08:12 Blood Pressure 136/90 01/18/21 08:12 O2 Sat by Pulse Oximetry 94 L 01/18/21 08:12 Pain Scale Pain Intensity 2 - Physical Exam General Appearance: mild distress, alert, anxiety Eye Exam: PERRL/EOMI, eyes nml inspection Ears, Nose, Throat Exam: normal ENT inspection, moist mucous membranes Neck Exam: normal inspection, non-tender, supple, full range of motion Respiratory Exam: normal breath sounds, lungs clear, airway intact, No chest tenderness, No respiratory distress Cardiovascular Exam: regular rate/rhythm, normal heart sounds, normal peripheral pulses Gastrointestinal/Abdomen Exam: soft, normal bowel sounds, No tenderness Rectal Exam: not done Back Exam: normal inspection, normal range of motion, No CVA tenderness, No vertebral tenderness Extremity Exam: normal inspection, normal range of motion, pelvis stable Neurologic Exam: alert, oriented x 3, cooperative, ic designer custom II-XII nml as tested, normal mood/affect, nml cerebellar function, nml station & gait, sensation nml Skin Exam: normal color, warm, dry Lymphatic Exam: No adenopathy SpO2 Interpretation: borderline oxygenation SpO2: 95 O2 Delivery: Room Air - Course Nursing assessment & vital signs reviewed: Yes Ordered Tests: Active Orders 24 hr Category Date Time Status EKG-ER Only STAT Care 01/18/21 08:27 Active IV Insertion STAT Care 01/18/21 08:27 Active Isolation, Initiate & Maintain STAT Care 01/18/21 08:27 Active CHEST 1 VIEW (PORTABLE) Stat Exams 01/18/21 08:27 Completed VENOUS UNILAT/LIMITED EXTREMIT [US] Stat Exams 01/18/21 09:31 Completed BLOOD CULTURE Stat Lab 01/18/21 08:54 Received CBC W DIFF Stat Lab 01/18/21 08:42 Completed CMP Stat Lab 01/18/21 08:42 Completed D-DIMER QUANTITATIVE Stat Lab 01/18/21 08:42 Completed Ferritin Stat Lab 01/18/21 08:42 Completed INFLUENZA A+B DESTINEE Stat Lab 01/18/21 08:42 Completed LDH-LACTATE DEHYDROGENASE Stat Lab 01/18/21 08:42 Completed Lactic Acid Stat Lab 01/18/21 08:40 Completed Box Elder Screen Stat Lab 01/18/21 08:42 Completed TROPONIN Q3H Lab 01/18/21 08:42 Completed TROPONIN Q3H Lab 01/18/21 11:30 Ordered TROPONIN Q3H Lab 01/18/21 14:30 Ordered TROPONIN Q3H Lab 01/18/21 17:30 Ordered TROPONIN Q3H Lab 01/18/21 20:30 Ordered UA W/RFX UR CULTURE Stat Lab 01/18/21 11:28 Ordered Medication Summary Discontinued Medications Generic Name Dose Route Start Last Admin Trade Name Freq PRN Reason Stop Dose Admin Dexamethasone Sodium Phosphate 8 mg 01/18/21 08:30 01/18/21 08:39 Dexamethasone Sod Phosphate 4 Mg/Ml Ml IV 01/18/21 08:31 8 mg STAT ONE Administration Dexamethasone Sodium Phosphate Confirm 01/18/21 08:34 Dexamethasone Sod Phosphate 4 Mg/Ml Ml Administered 01/18/21 08:35 Dose 8 mg .ROUTE .STK-MED ONE Sodium Chloride 1,000 mls @ 999 mls/hr 01/18/21 08:27 01/18/21 09:43 Sodium Chloride 0.9% 1000 Ml IV 01/18/21 09:27 Infused .Q1H1M STA Infusion Sodium Chloride Confirm 01/18/21 08:34 Sodium Chloride 0.9% 1000 Ml Administered 01/18/21 08:35 Dose 1,000 mls @ ud .ROUTE .STK-MED ONE Morphine Sulfate 4 mg 01/18/21 08:31 01/18/21 08:39 Morphine Sulfate 4 Mg/Ml Injection IV 01/18/21 08:32 4 mg STAT ONE Administration Morphine Sulfate Confirm 01/18/21 08:34 Morphine Sulfate 4 Mg/Ml Injection Administered 01/18/21 08:35 Dose 4 mg .ROUTE .STK-MED ONE Ondansetron HCl 4 mg 01/18/21 08:27 01/18/21 08:38 Ondansetron Hcl 4 Mg/2 Ml Vial IV 01/18/21 08:28 4 mg STAT STA Administration Ondansetron HCl Confirm 01/18/21 08:34 Ondansetron Hcl 4 Mg/2 Ml Vial Administered 01/18/21 08:35 Dose 4 mg .ROUTE .STK-MED ONE Lab/Rad Data: Laboratory Result Diagrams 01/18/21 08:42 01/18/21 08:42 Laboratory Results 01/18/21 01/18/21 01/18/21 Range/Units 08:42 08:42 08:42 WBC (4.0-10.5) K/mm3 RBC (4.1-5.6) M/mm3 Hgb (12.5-18.0) gm/dl Hct (42-50) % MCV (78-100) fl MCH (26-32) pg MCHC (32-36) g/dl RDW (11.5-14.0) % Plt Count (150-450) K/mm3 MPV (7.5-11.0) fl Gran % (36.0-66.0) % Eos # (Auto) (0-0.5) Absolute Lymphs (auto) (1.0-4.6) Absolute Monos (auto) (0.0-1.3) Lymphocytes % (24.0-44.0) % Monocytes % (0.0-12.0) % Eosinophils % (0.00-5.0) % Basophils % (0.0-0.4) % Absolute Granulocytes (1.4-6.9) Basophils # (0-0.4) D-Dimer (215-500) ng/mL Sodium (137-145) mmol/L Potassium (3.5-5.1) mmol/L Chloride (98-107) mmol/L Carbon Dioxide (22-30) mmol/L Anion Gap (5-15) MEQ/L BUN (9-20) mg/dL Creatinine (0.66-1.25) mg/dL Estimated GFR ML/MIN Glucose (74-106) mg/dL Lactic Acid (0.4-2.0) Calcium (8.4-10.2) mg/dL Ferritin 49.2 (17.9-464) ng/mL Total Bilirubin (0.2-1.3) mg/dL AST (17-59) U/L ALT (0-50) U/L Alkaline Phosphatase (38-126) U/L Lactate Dehydrogenase (120-246) U/L Troponin I < 0.012 (0.000-0.034) ng/mL Serum Total Protein (6.3-8.2) g/dL Albumin (3.5-5.0) g/dL Monoscreen NEGATIVE (Negative) Influenza Type A Ag (NEGATIVE) Influenza Type B Ag (NEGATIVE) 01/18/21 01/18/21 01/18/21 Range/Units 08:42 08:42 08:42 WBC 8.0 (4.0-10.5) K/mm3 RBC 5.15 (4.1-5.6) M/mm3 Hgb 15.7 (12.5-18.0) gm/dl Hct 49.1 (42-50) % MCV 95.3 (78-100) fl MCH 30.5 (26-32) pg MCHC 32.0 (32-36) g/dl RDW 13.9 (11.5-14.0) % Plt Count 227 (150-450) K/mm3 MPV 9.7 (7.5-11.0) fl Gran % 79.2 H (36.0-66.0) % Eos # (Auto) 0.07 (0-0.5) Absolute Lymphs (auto) 1.14 (1.0-4.6) Absolute Monos (auto) 0.44 (0.0-1.3) Lymphocytes % 14.2 L (24.0-44.0) % Monocytes % 5.5 (0.0-12.0) % Eosinophils % 0.9 (0.00-5.0) % Basophils % 0.2 (0.0-0.4) % Absolute Granulocytes 6.36 (1.4-6.9) Basophils # 0.02 (0-0.4) D-Dimer < 215 L (215-500) ng/mL Sodium 140 (137-145) mmol/L Potassium 3.8 (3.5-5.1) mmol/L Chloride 102 (98-107) mmol/L Carbon Dioxide 28 (22-30) mmol/L Anion Gap 13.9 (5-15) MEQ/L BUN 6 L (9-20) mg/dL Creatinine 0.80 (0.66-1.25) mg/dL Estimated GFR > 60.0 ML/MIN Glucose 141 H (74-106) mg/dL Lactic Acid (0.4-2.0) Calcium 9.1 (8.4-10.2) mg/dL Ferritin (17.9-464) ng/mL Total Bilirubin 0.70 (0.2-1.3) mg/dL AST 24 (17-59) U/L ALT 17 (0-50) U/L Alkaline Phosphatase 121 (38-126) U/L Lactate Dehydrogenase 136 (120-246) U/L Troponin I (0.000-0.034) ng/mL Serum Total Protein 6.3 (6.3-8.2) g/dL Albumin 4.0 (3.5-5.0) g/dL Monoscreen (Negative) Influenza Type A Ag (NEGATIVE) Influenza Type B Ag (NEGATIVE) 01/18/21 01/18/21 Range/Units 08:42 08:40 WBC (4.0-10.5) K/mm3 RBC (4.1-5.6) M/mm3 Hgb (12.5-18.0) gm/dl Hct (42-50) % MCV (78-100) fl MCH (26-32) pg MCHC (32-36) g/dl RDW (11.5-14.0) % Plt Count (150-450) K/mm3 MPV (7.5-11.0) fl Gran % (36.0-66.0) % Eos # (Auto) (0-0.5) Absolute Lymphs (auto) (1.0-4.6) Absolute Monos (auto) (0.0-1.3) Lymphocytes % (24.0-44.0) % Monocytes % (0.0-12.0) % Eosinophils % (0.00-5.0) % Basophils % (0.0-0.4) % Absolute Granulocytes (1.4-6.9) Basophils # (0-0.4) D-Dimer (215-500) ng/mL Sodium (137-145) mmol/L Potassium (3.5-5.1) mmol/L Chloride (98-107) mmol/L Carbon Dioxide (22-30) mmol/L Anion Gap (5-15) MEQ/L BUN (9-20) mg/dL Creatinine (0.66-1.25) mg/dL Estimated GFR ML/MIN Glucose (74-106) mg/dL Lactic Acid 1.7 (0.4-2.0) Calcium (8.4-10.2) mg/dL Ferritin (17.9-464) ng/mL Total Bilirubin (0.2-1.3) mg/dL AST (17-59) U/L ALT (0-50) U/L Alkaline Phosphatase (38-126) U/L Lactate Dehydrogenase (120-246) U/L Troponin I (0.000-0.034) ng/mL Serum Total Protein (6.3-8.2) g/dL Albumin (3.5-5.0) g/dL Monoscreen (Negative) Influenza Type A Ag NEGATIVE (NEGATIVE) Influenza Type B Ag NEGATIVE (NEGATIVE) - Departure Departure Disposition: Home Clinical Impression: Vomiting and diarrhea Condition: Stable Critical Care Time: No Referrals: DAREN GARCIA [NON-STAFF PHY W/O PRIVILEGES] - Additional Instructions: Drink plenty of fluids. Take your medication as prescribed. Follow-up with your primary care physician for further management. Quarantine yourself until the results of your COVID-19 test returned. Prescriptions: Ondansetron ODT 4 MG [Zofran Odt 4 mg] 4 mg PO Q6H PRN PRN #10 PRN Reason: Nausea/Vomiting
[2021-01-18] MEDS ORDERED: Decadron 4 MG INJ IV ONE (08:30)
[2021-01-18] MEDS ORDERED: MORPHINE SULFATE 4 MG INJ IV ONE (08:31)
[2021-01-18] MEDS ORDERED: Sodium Chloride 0.9% 1000 ML 1,000 ML ONE (08:34)
[2021-01-18] MEDS ORDERED: Decadron 4 MG INJ ONE (08:34)
[2021-01-18] MEDS ORDERED: Zofran 4 MG/2 ML VIAL ONE (08:34)
[2021-01-18] MEDS ORDERED: MORPHINE SULFATE 4 MG INJ ONE (08:34)
--- NOTE | 2021-01-18 09:12 | XRAY ---
Indication: Nausea, vomiting, diarrhea. Comparison: April 22, 2017. Portable chest remains hyperinflated and clear. Heart not enlarged again with CABG surgery. Bony thorax intact. Impression: Continued nonacute hyperinflated chest with chronic features.
[2021-01-18 09:15] LABS: Absolute Neutrophil Ct (ANC) 6.36 (1.4-6.9); BASOPHIL % 0.2 % (0.0-0.4); Basophil (Absolute #) 0.02 (0-0.4); Eosinophil % 0.9 % (0.00-5.0); Eosinophil (Absolute #) 0.07 (0-0.5); Hematocrit 49.1 % (42-50); Hemoglobin 15.7 gm/dl (12.5-18.0); Lymphocyte (Absolute #) 1.14 (1.0-4.6); Lymphocytes % 14.2 % (24.0-44.0); Mean Cell Volume 95.3 fl (78-100); Mean Corpuscular Hemoglobin 30.5 pg (26-32); Mean Platelet Volume 9.7 fl (7.5-11.0); Monocyte (Absolute #) 0.44 (0.0-1.3); Monocytes % 5.5 % (0.0-12.0); Neutrophil % 79.2 % (36.0-66.0); Platelet Count 227 K/mm3 (150-450); Red Blood Count 5.15 M/mm3 (4.1-5.6); Red Cell Distribution Width 13.9 % (11.5-14.0)
[2021-01-18 09:26] LABS: ALKALINE PHOSPHATASE 121 U/L (38-126); ANION GAP 13.9 MEQ/L (5-15); BLOOD UREA NITROGEN 6 mg/dL (9-20); CHLORIDE 102 mmol/L (98-107); Calcium 9.1 mg/dL (8.4-10.2); Carbon Dioxide 28 mmol/L (22-30); EST GLOMERULAR FILTRATION RATE > 60.0 ML/MIN; Glucose 141 mg/dL (74-106); LDH-LACTATE DEHYDROGENASE 136 U/L (120-246); Potassium 3.8 mmol/L (3.5-5.1); SGOT/AST 24 U/L (17-59); SGPT/ALT 17 U/L (0-50); SODIUM 140 mmol/L (137-145); Total Protein 6.3 g/dL (6.3-8.2)
[2021-01-18 09:28] LABS: INFLUENZA A NEGATIVE (NEGATIVE); INFLUENZA B NEGATIVE (NEGATIVE)
--- NOTE | 2021-01-18 10:36 | XRAY ---
Indication: Left leg swelling. Two-dimensional sonogram and color Doppler imaging of the major venous vessels of the left leg performed. Comparison: April 19, 2017. No thrombus seen in the examined deep venous vessels of the left leg including greater saphenous vein. Veins demonstrate normal compressibility. Venous waveforms are normal with and without augmentation. Impression: Left leg again negative for DVT.
[2021-01-18] MEDS ORDERED: VENTOLIN COMMON CANISTER IH PRN (10:40)
[2021-01-18] MEDS ORDERED: Sodium Chloride 0.9% 500 ML 500 ML IV ONE ×2 (11:40)
[2021-01-18 12:02] LABS: Appearance CLEAR (CLEAR); Bacteria RARE /HPF (NEGATIVE); Bilirubin NEGATIVE (NEGATIVE); Blood NEGATIVE Ery/ul (0-5); Glucose NEGATIVE (NEGATIVE); Ketones NEGATIVE (NEGATIVE); Leukocyte Esterase NEGATIVE (NEGATIVE); Mucus SLIGHT /HPF (NEGATIVE); Nitrite NEGATIVE (NEGATIVE); Protein,Urine Dip NEGATIVE (Negative); RBC 0-2 /HPF (0-2); Specific Gravity 1.015 (1.005-1.025); Urobilinogen 2 mg/dL (0-1)
[2021-01-18 12:54] VITALS: BP 115/74; PULSE 71; O2SAT 92
== END 2021-01-18 12:54 | disposition home or self-care (01) ==
LOC: ED 08:07
DX: R11.10 Vomiting, unspecified (principal); R19.7 Diarrhea, unspecified
CPT/HCPCS: 36000; 36415; 71045; 80053; 81001; 82728; 83605; 83615; 84484; 85025; 85379; 86308; 87040; 87400; 93005; 93971; 96360; 96374; 96375; 99285; U0003; J1100; J2270; J2405

== ENCOUNTER 2021-01-19 16:18 | Inpatient (IN) | payer MEDICARE ==
[2021-01-19 16:59] LABS: Absolute Neutrophil Ct (ANC) 7.42 (1.4-6.9); BASOPHIL % 0.1 % (0.0-0.4); Basophil (Absolute #) 0.01 (0-0.4); Eosinophil % 0.6 % (0.00-5.0); Eosinophil (Absolute #) 0.06 (0-0.5); Hematocrit 51.1 % (42-50); Hemoglobin 16.3 gm/dl (12.5-18.0); Lymphocyte (Absolute #) 2.26 (1.0-4.6); Lymphocytes % 21.5 % (24.0-44.0); Mean Cell Volume 95.5 fl (78-100); Mean Corpuscular Hemoglobin 30.5 pg (26-32); Mean Corpuscular Hgb Concent. 31.9 g/dl (32-36); Mean Platelet Volume 9.7 fl (7.5-11.0); Monocyte (Absolute #) 0.74 (0.0-1.3); Monocytes % 7.1 % (0.0-12.0); Neutrophil % 70.7 % (36.0-66.0); Platelet Count 237 K/mm3 (150-450); Red Blood Count 5.35 M/mm3 (4.1-5.6); Red Cell Distribution Width 14.1 % (11.5-14.0); White Blood Count 10.5 K/mm3 (4.0-10.5)
[2021-01-19 17:03] LABS: INR 0.94 (0.8-3.0); PROTIME 11.1 SECONDS (9.4-12.5)
[2021-01-19 17:05] LABS: PTT 28.5 SECONDS (25.1-36.5)
[2021-01-19 17:13] LABS: ALBUMIN 4.3 g/dL (3.5-5.0); ALKALINE PHOSPHATASE 104 U/L (38-126); ANION GAP 13.5 MEQ/L (5-15); BLOOD UREA NITROGEN 7 mg/dL (9-20); CHLORIDE 100 mmol/L (98-107); Calcium 9.6 mg/dL (8.4-10.2); Carbon Dioxide 32 mmol/L (22-30); EST GLOMERULAR FILTRATION RATE > 60.0 ML/MIN; Glucose 100 mg/dL (74-106); Potassium 3.7 mmol/L (3.5-5.1); SGOT/AST 31 U/L (17-59); SGPT/ALT 20 U/L (0-50); SODIUM 141 mmol/L (137-145); Total Protein 6.8 g/dL (6.3-8.2)
--- NOTE | 2021-01-19 18:44 | ERPHSYRPT ---
- History of Present Illness Source: patient Exam Limitations: no limitations, clinical condition Patient Subjective Stated Complaint: SOB Triage Nursing Assessment: Patient brought into ED via EMS and transferred to bed with assist of 2. Patient A+O X3. Patient's skin pink, warm and dry. Patient complains of SOB while at rest. Patient states he was seen in ER yesterday and tested negative for covid. Patient states he has fever, cough, SOB, N/V, diarrhea, headache and bodyaches 7/10. Lungs diminished throughout. EMS state patient called for SOB and with O2 in the 80s intially was put on O2 at 4 liters per N/C but kept taking it off and was placed on Bipap at 40% per RT. Physician History: 60 yo wm seen in ER yesterday for dyspnea presents w increasing dyspnea x 2 days/cough/coryza/subjective fever. Pt smoked 2 ppd until 2 wks ago and has a h/o COPD/HTN/hyperlipidemia/CAD/CABG x2. CV19 neg yesterday. Pt arrived on CPAP, wheezing, w duoneb going. He only has CP when coughing. N/V/Diarrhea/melena/hematochezia are denied. CV19 neg yesterday. Timing/Duration: day(s) (2 days) Activities at Onset: rest Severity of Dyspnea-Max: moderate Severity of Dyspnea-Current: moderate Possible Cause: occasional episodes Modifying Factors: Improves With: activity Associated Symptoms: anxiety, cough, fever, wheezing, weakness, painful breathing, productive cough, sweating, tightness, No edema, No insomnia, No loss of appetite, No lightheadedness, No ankle swelling, No chills, No hemoptysis, No calf pain, No dizziness, No heaviness, No heart racing, No lightheadedness, No leg swelling, No muscle spasms hands, No tingling face, No tingling hands Allergies/Adverse Reactions: naproxen Adverse Reaction (Severe, Verified 01/30/18 22:41) difficulty breathing Home Medications: Lamotrigine [Lamictal] 200 mg PO BID 01/18/21 [History] Levetiracetam [Keppra Xr] 500 mg PO BID 01/18/21 [History] Aspirin EC 81 mg [Ecotrin 81 mg] 81 mg PO QAM 01/20/21 [History] Hx Tetanus, Diphtheria Vaccination/Date Given: No Hx Influenza Vaccination/Date Given: Yes Hx Pneumococcal Vaccination/Date Given: Yes Immunizations Up to Date: Yes Travel Risk - International Travel Have you traveled outside of the country in past 3 weeks: No - Coronavirus Screening Are you exhibiting any of the following symptoms?: Yes Symptoms: Cough: New Onset, Shortness of Breath, Vomiting/Diarrhea, Head aches/Body Aches/Fatigue Close contact with a COVID-19 positive Pt in past 14-21 Days: No - Vaccine Status Have you recieved a Covid-19 vaccination: No - Review of Systems Constitutional: No Symptoms, Fever, Chills Eyes: No Symptoms Ears, Nose, & Throat: No Symptoms, Nose Congestion, Nose Discharge, No Nose Pain, No Sinus Drainage Respiratory: No Symptoms, Cough, Dyspnea Cardiac: No Symptoms Abdominal/Gastrointestinal: No Symptoms Genitourinary Symptoms: No Symptoms Musculoskeletal: No Symptoms Skin: No Symptoms Neurological: No Symptoms Psychological: No Symptoms Endocrine: No Symptoms Hematologic/Lymphatic: No Symptoms Immunological/Allergic: No Symptoms - Past Medical History Pertinent Past Medical History: Yes Neurological History: No Pertinent History ENT History: No Pertinent History Cardiac History: Myocardial Infarction (CT) Respiratory History: COPD Endocrine Medical History: No Pertinent History Musculoskeletal History: No Pertinent History GI Medical History: No Pertinent History History: No Pertinent History Psycho-Social History: No Pertinent History Male Reproductive Disorders: No Pertinent History Other Medical History: Pt reports that partner reported to him that she tested positive for an STD but he is unsure which one it is. Pt states he see's Dr. Segura for his heart and Dr. Margarito Power for his lungs. Pt denies hx of HTN or high cholesterol but is on medication for both - Past Surgical History Past Surgical History: Yes Neuro Surgical History: No Pertinent History Cardiac: CABG Gastrointestinal: No Pertinent History Genitourinary: No Pertinent History Musculoskeletal: No Pertinent History Male Surgical History: No Pertinent History Other Surgical History: Pt reports having CABG in March of this year. - Social History Smoking Status: Current every day smoker How long have you smoked: 46 years Exposure to second hand smoke: No Drug Use: marijuana Patient Lives Alone: No Significant Family History: no pertinent family hx - Nursing Vital Signs Nursing Vital Signs: Initial Vital Signs Temperature 98.1 F 01/19/21 16:49 Pulse Rate 84 01/19/21 16:49 Respiratory Rate 18 01/19/21 16:49 Blood Pressure 153/63 01/19/21 16:49 O2 Sat by Pulse Oximetry 100 01/19/21 16:49 Pain Scale Pain Intensity 3 Hypertensive - Physical Exam General Appearance: mild distress Eye Exam: PERRL/EOMI, eyes nml inspection Ears, Nose, Throat Exam: hearing grossly normal, normal ENT inspection, normal pharynx Neck Exam: normal inspection, non-tender, supple, full range of motion, No Brudzinski, No Kernig's, No meningismus, No carotid bruit Respiratory Exam: respiratory distress (Mild), airway intact, diminished breath sounds, prolonged expirations, wheezing Cardiovascular/Chest Exam: regular rate/rhythm, normal peripheral pulses, No murmur, No edema Abdominal/Gastrointestinal Exam: soft, normal bowel sounds, No tenderness Extremity Exam: non-tender, normal range of motion, normal inspection, normal capillary refill, no calf tenderness, no pedal edema Neurologic Exam: alert, oriented x 3, cooperative, granite cutter II-XII nml as tested, normal mood/affect Skin Exam: normal color, warm, dry Lymphatic Exam: No adenopathy SpO2 Interpretation: borderline oxygenation SpO2: 95 O2 Delivery: BiPap/CPAP - Course EKG Interpreted by Me: RATE (NSR/Normal QT-QTc/No acute ST segment changes) - Radiology Exams Chest X-ray Interpretation: Interpreted by me (Post surgical chest/NAD) - CT Exams Chest CT Interpretation: Tele-radiologist Report (CTA chest-No PE/COPD/CABG) Ordered Tests: Active Orders 24 hr Category Date Time Status EKG-ER Only STAT Care 01/19/21 16:27 Completed IV Insertion STAT Care 01/19/21 16:27 Completed IV Insertion-2nd Peripheral STAT Care 01/19/21 20:56 Completed Heart-Healthy Diet Diet 01/19/21 Breakfast Active CHEST 1 VIEW (PORTABLE) Stat Exams 01/19/21 16:27 Taken CHEST WITH CONTRAST [CT] Stat Exams 01/19/21 18:52 Taken ABG [ARTERIAL BLOOD GASES] Stat Lab 01/19/21 18:55 Completed ARTERIAL BLOOD GASES AM.LAB Lab 01/20/21 04:00 Ordered BLOOD CULTURE Stat Lab 01/19/21 20:55 Received CBC AM.LAB Lab 01/20/21 04:00 Ordered CBC W DIFF Stat Lab 01/19/21 16:50 Completed CMP AM.LAB Lab 01/20/21 04:00 Ordered CMP Stat Lab 01/19/21 16:50 Completed MAGNESIUM AM.LAB Lab 01/20/21 04:00 Ordered NT PRO BNP Stat Lab 01/19/21 20:47 Completed PROTIME WITH INR Stat Lab 01/19/21 16:50 Completed PTT Stat Lab 01/19/21 16:50 Completed TROPONIN Q3H Lab 01/19/21 16:50 Completed TROPONIN Q3H Lab 01/19/21 19:40 Completed TROPONIN Q3H Lab 01/19/21 21:25 Completed TROPONIN Q3H Lab 01/20/21 01:30 Ordered TROPONIN Q3H Lab 01/20/21 04:30 Ordered Transfer Order Routine Transfer 01/19/21 Completed Medication Summary Generic Name Dose Route Start Last Admin Trade Name Freq PRN Reason Stop Dose Admin Albuterol/Ipratropium 3 ml 01/19/21 23:00 01/19/21 23:26 Ipratropium/Albuterol Sulfate 3 Ml Ampul.Neb IH 02/18/21 22:59 3 ml Q4HRT ANDREW Administration Methylprednisolone Sodium 0 mg 01/20/21 00:00 Succinate 125 mg/ Sterile IV 02/19/21 00:00 Water 2 ml Q6HT ANDREW Enoxaparin Sodium 40 mg 01/20/21 10:00 Enoxaparin Sodium 40 Mg/0.4 Ml Syringe SQ 02/19/21 09:59 DAILY ANDREW Ceftriaxone Sodium/Dextrose 1 g in 50 mls @ 100 mls/hr 01/20/21 10:00 Rocephin 1 Gm-D5w 50 Ml Bag IV 01/23/21 09:59 Q24H10 ANDREW Discontinued Medications Generic Name Dose Route Start Last Admin Trade Name Freq PRN Reason Stop Dose Admin Albuterol/Ipratropium Confirm 01/19/21 18:59 Ipratropium/Albuterol Sulfate 3 Ml Ampul.Neb Administered 01/19/21 19:00 Dose 3 ml IH .STK-MED ONE Albuterol/Ipratropium 3 ml 01/19/21 18:55 01/19/21 19:04 Ipratropium/Albuterol Sulfate 3 Ml Ampul.Neb IH 01/19/21 18:56 3 ml STAT ONE Administration Methylprednisolone Sodium 0 mg 01/19/21 20:57 01/19/21 20:57 Succinate 125 mg/ Sterile IV 01/19/21 20:58 125 mg Water 2 ml STAT ONE Administration Ceftriaxone Sodium/Dextrose 1 g in 50 mls @ 100 mls/hr 01/19/21 22:02 01/19/21 22:49 Rocephin 1 Gm-D5w 50 Ml Bag IV 01/19/21 22:31 Infused STAT STA Infusion Ceftriaxone Sodium/Dextrose Confirm 01/19/21 22:07 Rocephin 1 Gm-D5w 50 Ml Bag Administered 01/19/21 22:08 Dose 1 g in 50 mls @ ud IV .STK-MED ONE Lorazepam 1 mg 01/19/21 18:46 01/19/21 18:49 Lorazepam 2 Mg/1 Ml 2 Mg Vial IV 01/19/21 18:47 1 mg STAT ONE Administration Lorazepam Confirm 01/19/21 18:48 Lorazepam 2 Mg/1 Ml 2 Mg Vial Administered 01/19/21 18:49 Dose 2 mg .ROUTE .STK-MED ONE Methylprednisolone Sodium Succinate 125 mg 01/19/21 20:53 01/19/21 20:56 Methylprednisolone Sod Succ 500 Mg/Vial IV 01/19/21 20:54 Not Given STAT ONE Methylprednisolone Sodium Succinate Confirm 01/19/21 20:53 Methylprednis Sod Succ 125 Mg/2 Ml Vial Administered 01/19/21 20:54 Dose 125 mg .ROUTE .STK-MED ONE Ondansetron HCl 4 mg 01/19/21 21:02 01/19/21 21:04 Ondansetron Hcl 4 Mg/2 Ml Vial IV 01/19/21 21:03 4 mg STAT ONE Administration Ondansetron HCl Confirm 01/19/21 21:04 Ondansetron Hcl 4 Mg/2 Ml Vial Administered 01/19/21 21:05 Dose 4 mg .ROUTE .STK-MED ONE Lab/Rad Data: Laboratory Result Diagrams 01/19/21 16:50 01/19/21 16:50 Laboratory Results 01/19/21 01/19/21 01/19/21 Range/Units 22:10 21:25 20:47 WBC (4.0-10.5) K/mm3 RBC (4.1-5.6) M/mm3 Hgb (12.5-18.0) gm/dl Hct (42-50) % MCV (78-100) fl MCH (26-32) pg MCHC (32-36) g/dl RDW (11.5-14.0) % Plt Count (150-450) K/mm3 MPV (7.5-11.0) fl Gran % (36.0-66.0) % Eos # (Auto) (0-0.5) Absolute Lymphs (auto) (1.0-4.6) Absolute Monos (auto) (0.0-1.3) Lymphocytes % (24.0-44.0) % Monocytes % (0.0-12.0) % Eosinophils % (0.00-5.0) % Basophils % (0.0-0.4) % Absolute Granulocytes (1.4-6.9) Basophils # (0-0.4) PT (9.4-12.5) SECONDS INR (0.8-3.0) APTT (25.1-36.5) SECONDS Puncture Site pCO2 (35-45) mmHg pO2 (75-100) mmHg Base Excess (-2.0-2.0) O2 Saturation (94-100) g/dF ABG pH (7.35-7.45) ABG HCO3 (22-28) ABG O2 Sat (Measured) (95-100) % Zac Test A-a Gradient a/A Ratio Hemoglobin Carboxyhemoglobin (0.0-6.9) % THgb Methemoglobin (1.4-1.5) % Temperature C POC O2 Flow Rate % Vent Mode Inspiratory BiPAP Expiratory BiPAP Sodium (137-145) mmol/L Potassium (3.5-5.1) mmol/L Chloride (98-107) mmol/L Carbon Dioxide (22-30) mmol/L Anion Gap (5-15) MEQ/L BUN (9-20) mg/dL Creatinine (0.66-1.25) mg/dL Estimated GFR ML/MIN Glucose (74-106) mg/dL Calcium (8.4-10.2) mg/dL Total Bilirubin (0.2-1.3) mg/dL AST (17-59) U/L ALT (0-50) U/L Alkaline Phosphatase (38-126) U/L Troponin I 0.020 (0.000-0.034) ng/mL NT-Pro-B Natriuret Pep 1370 H (0-900) pg/mL Serum Total Protein (6.3-8.2) g/dL Albumin (3.5-5.0) g/dL SARS-CoV-2 (PCR) NEGATIVE (NEGATIVE) 01/19/21 01/19/21 01/19/21 Range/Units 19:40 18:55 16:50 WBC (4.0-10.5) K/mm3 RBC (4.1-5.6) M/mm3 Hgb (12.5-18.0) gm/dl Hct (42-50) % MCV (78-100) fl MCH (26-32) pg MCHC (32-36) g/dl RDW (11.5-14.0) % Plt Count (150-450) K/mm3 MPV (7.5-11.0) fl Gran % (36.0-66.0) % Eos # (Auto) (0-0.5) Absolute Lymphs (auto) (1.0-4.6) Absolute Monos (auto) (0.0-1.3) Lymphocytes % (24.0-44.0) % Monocytes % (0.0-12.0) % Eosinophils % (0.00-5.0) % Basophils % (0.0-0.4) % Absolute Granulocytes (1.4-6.9) Basophils # (0-0.4) PT (9.4-12.5) SECONDS INR (0.8-3.0) APTT (25.1-36.5) SECONDS Puncture Site RIGHT RADIAL pCO2 52 H (35-45) mmHg pO2 161 H* (75-100) mmHg Base Excess 3.6 H (-2.0-2.0) O2 Saturation 96.0 (94-100) g/dF ABG pH 7.37 (7.35-7.45) ABG HCO3 30.1 H* (22-28) ABG O2 Sat (Measured) 99.8 (95-100) % Zac Test YES A-a Gradient 59 a/A Ratio 0.73 Hemoglobin 15.4 Carboxyhemoglobin 2.9 (0.0-6.9) % THgb Methemoglobin 0.9 L (1.4-1.5) % Temperature 37.0 C POC O2 Flow Rate 40 % Vent Mode BiPAP Inspiratory BiPAP 10 Expiratory BiPAP 4 Sodium (137-145) mmol/L Potassium 3.9 (3.5-5.1) mmol/L Chloride (98-107) mmol/L Carbon Dioxide (22-30) mmol/L Anion Gap (5-15) MEQ/L BUN (9-20) mg/dL Creatinine (0.66-1.25) mg/dL Estimated GFR ML/MIN Glucose (74-106) mg/dL Calcium (8.4-10.2) mg/dL Total Bilirubin (0.2-1.3) mg/dL AST (17-59) U/L ALT (0-50) U/L Alkaline Phosphatase (38-126) U/L Troponin I 0.024 0.016 (0.000-0.034) ng/mL NT-Pro-B Natriuret Pep (0-900) pg/mL Serum Total Protein (6.3-8.2) g/dL Albumin (3.5-5.0) g/dL SARS-CoV-2 (PCR) (NEGATIVE) 01/19/21 01/19/21 01/19/21 Range/Units 16:50 16:50 16:50 WBC 10.5 (4.0-10.5) K/mm3 RBC 5.35 (4.1-5.6) M/mm3 Hgb 16.3 (12.5-18.0) gm/dl Hct 51.1 H (42-50) % MCV 95.5 (78-100) fl MCH 30.5 (26-32) pg MCHC 31.9 L (32-36) g/dl RDW 14.1 H (11.5-14.0) % Plt Count 237 (150-450) K/mm3 MPV 9.7 (7.5-11.0) fl Gran % 70.7 H (36.0-66.0) % Eos # (Auto) 0.06 (0-0.5) Absolute Lymphs (auto) 2.26 (1.0-4.6) Absolute Monos (auto) 0.74 (0.0-1.3) Lymphocytes % 21.5 L (24.0-44.0) % Monocytes % 7.1 (0.0-12.0) % Eosinophils % 0.6 (0.00-5.0) % Basophils % 0.1 (0.0-0.4) % Absolute Granulocytes 7.42 H (1.4-6.9) Basophils # 0.01 (0-0.4) PT 11.1 (9.4-12.5) SECONDS INR 0.94 (0.8-3.0) APTT 28.5 (25.1-36.5) SECONDS Puncture Site pCO2 (35-45) mmHg pO2 (75-100) mmHg Base Excess (-2.0-2.0) O2 Saturation (94-100) g/dF ABG pH (7.35-7.45) ABG HCO3 (22-28) ABG O2 Sat (Measured) (95-100) % Zac Test A-a Gradient a/A Ratio Hemoglobin Carboxyhemoglobin (0.0-6.9) % THgb Methemoglobin (1.4-1.5) % Temperature C POC O2 Flow Rate % Vent Mode Inspiratory BiPAP Expiratory BiPAP Sodium 141 (137-145) mmol/L Potassium 3.7 (3.5-5.1) mmol/L Chloride 100 (98-107) mmol/L Carbon Dioxide 32 H (22-30) mmol/L Anion Gap 13.5 (5-15) MEQ/L BUN 7 L (9-20) mg/dL Creatinine 0.80 (0.66-1.25) mg/dL Estimated GFR > 60.0 ML/MIN Glucose 100 (74-106) mg/dL Calcium 9.6 (8.4-10.2) mg/dL Total Bilirubin 0.70 (0.2-1.3) mg/dL AST 31 (17-59) U/L ALT 20 (0-50) U/L Alkaline Phosphatase 104 (38-126) U/L Troponin I (0.000-0.034) ng/mL NT-Pro-B Natriuret Pep (0-900) pg/mL Serum Total Protein 6.8 (6.3-8.2) g/dL Albumin 4.3 (3.5-5.0) g/dL SARS-CoV-2 (PCR) (NEGATIVE) - Progress Progress Note: 01/19/21 21:[address] Tom Colón in route and in ER w mild improvement CV19 neg result yesterday Discussed with : Nicole Counseled pt/family regarding: lab results, diagnosis, need for follow-up, rad results - Departure Departure Disposition: Observation Clinical Impression: COPD exacerbation Condition: Stable Critical Care Time: Yes Critical Care Time(excluding separately billable procedures): Critical 30-74 mins
[2021-01-19] MEDS ORDERED: Ativan 2 MG/1 ML VIAL IV ONE (18:46)
[2021-01-19] MEDS ORDERED: Ativan 2 MG/1 ML VIAL ONE (18:48)
[2021-01-19] MEDS ORDERED: DUONEB 0.5-3 MG/3 ml Neb IH ONE ×2 (18:55→18:59)
[2021-01-19 19:00] LABS: A-aADO2 59; ABG HEMOGLOBIN 15.4; ABG POTASSIUM 3.9 (3.5-5.1); ABG SITE RIGHT RADIAL; ALLEN TEST OK? YES; ARTERIAL BLD GAS O2 SATURATION 99.8 % (95-100); ARTERIAL BLOOD GAS BASE EXCESS 3.6 (-2.0-2.0); ARTERIAL BLOOD GAS FIO2 40 %; ARTERIAL BLOOD GAS PCO2 52 mmHg (35-45); ARTERIAL BLOOD GAS PO2 161 mmHg (75-100); ARTERIAL BLOOD GAS VENT MODE BiPAP; ARTERIAL BLOOD GAS pH 7.37 (7.35-7.45); CARBOXYHEMOGLOBIN 2.9 % THgb (0.0-6.9); HCO3- 30.1 (22-28); Methhemoglobin 0.9 % (1.4-1.5)
[2021-01-19] MEDS ORDERED: solu-MEDROL W/DILUENT 500 MG IV ONE (20:53)
[2021-01-19] MEDS ORDERED: solu-MEDROL ONE (20:53)
[2021-01-19] MEDS ORDERED: solu-MEDROL 125 MG, Sterile H2O 10 ml 2 ML IV ONE ×2 (20:57)
[2021-01-19] MEDS ORDERED: Zofran 4 MG/2 ML VIAL IV ONE (21:02)
[2021-01-19] MEDS ORDERED: Zofran 4 MG/2 ML VIAL ONE (21:04)
[2021-01-19] MEDS ORDERED: ROCEPHIN 1 Gm-D5w 50 ml Bag** 1 G/50 ML IVPB IV STA (22:02)
[2021-01-19] MEDS ORDERED: ROCEPHIN 1 Gm-D5w 50 ml Bag** 1 G/50 ML IVPB IV ONE (22:07)
[2021-01-19] MEDS: DUONEB 0.5-3 MG/3 ml Neb IH SCH (23:26)
[2021-01-20] MEDS ORDERED: Sterile H2O 10 ml IJ ONE ×2 (01:32→05:25)
[2021-01-20] MEDS ORDERED: solu-MEDROL ONE ×2 (01:32→05:25)
[2021-01-20] MEDS: solu-MEDROL 125 MG, Sterile H2O 10 ml 2 ML IV SCH ×4 (01:33→05:26)
[2021-01-20] MEDS: DUONEB 0.5-3 MG/3 ml Neb IH SCH ×6 (03:27→22:47)
[2021-01-20 04:12] LABS: A-aADO2 95; ABG HEMOGLOBIN 14.6; ABG POTASSIUM 4.1 (3.5-5.1); ABG SITE RIGHT RADIAL; ALLEN TEST OK? YES; ARTERIAL BLD GAS O2 SATURATION 97.8 % (95-100); ARTERIAL BLOOD GAS BASE EXCESS 2.9 (-2.0-2.0); ARTERIAL BLOOD GAS FIO2 32 %; ARTERIAL BLOOD GAS PCO2 43 mmHg (35-45); ARTERIAL BLOOD GAS PO2 79 mmHg (75-100); ARTERIAL BLOOD GAS pH 7.42 (7.35-7.45); CARBOXYHEMOGLOBIN 1.7 % THgb (0.0-6.9); HCO3- 27.9 (22-28); HGB O2 SAT 95.3 g/dF (94-100)
[2021-01-20 07:01] LABS: Hematocrit 44.6 % (42-50); Hemoglobin 14.1 gm/dl (12.5-18.0); Mean Corpuscular Hemoglobin 30.7 pg (26-32); Mean Corpuscular Hgb Concent. 31.6 g/dl (32-36); Platelet Count 211 K/mm3 (150-450); Red Cell Distribution Width 14.2 % (11.5-14.0); White Blood Count 7.9 K/mm3 (4.0-10.5)
[2021-01-20 07:20] LABS: ALBUMIN 3.6 g/dL (3.5-5.0); ALKALINE PHOSPHATASE 91 U/L (38-126); BLOOD UREA NITROGEN 11 mg/dL (9-20); CHLORIDE 98 mmol/L (98-107); Calcium 9.2 mg/dL (8.4-10.2); Carbon Dioxide 29 mmol/L (22-30); EST GLOMERULAR FILTRATION RATE > 60.0 ML/MIN; Glucose 175 mg/dL (74-106); MAGNESIUM 1.8 mg/dL (1.6-2.3); Potassium 4.5 mmol/L (3.5-5.1); SGOT/AST 26 U/L (17-59); SGPT/ALT 19 U/L (0-50); SODIUM 138 mmol/L (137-145); Total Protein 5.7 g/dL (6.3-8.2)
--- NOTE | 2021-01-20 07:52 | XRAY ---
Indication: Short of breath. Comparison: One day earlier. Portable chest remains hyperinflated and clear. Heart not enlarged again with CABG surgery. No new/acute cardiopulmonary abnormalities.
--- NOTE | 2021-01-20 07:57 | XRAY ---
Indication: Short of breath. COPD, emphysema, and bronchitis. Multiple contiguous axial images obtained through the chest using 80 cc Isovue 370 contrast and PE protocol. Comparison: July 25, 2016. There is good opacification of the pulmonary arteries to include the lobar and segmental branches. No pulmonary embolus. Heart not enlarged again with CABG. Aorta is normal in course and caliber. No pathologic mediastinal/hilar lymphadenopathy. Lungs again demonstrates mild pulmonary emphysema and minimal medial right middle lobe and right base fibrosis/scarring. No suspicious pulmonary mass, infiltrate, effusion, or pneumothorax. Bony thorax intact with minimal degenerative changes of the spine, multilevel Schmorl nodes, remote T11 superior endplate fracture, and sternotomy wires. Limited upper abdomen unremarkable. Impression: 1. Negative pulmonary embolus. No acute cardiopulmonary abnormalities. 2. Again minimal pulmonary fibrosis/scarring, CABG, pulmonary emphysema, and chronic bony findings. Comment: Preliminary interpretation by C. No critical discrepancy.
--- NOTE | 2021-01-20 08:13 | PCM.HP ---
History of Present Illness - Chief Complaint Chief Complaint: COPD History of Present Illness: is a 60 year old male who sees Dr Claudia Power and Dr Lyubov Power, he has a longstanding history of copd, for the last 3 days has cough productive of yellow sputum and progressive worsening dyspnea and wheezing, came to ER via ambulance, initially required bipap therapy, currently stable on nasal cannula. - Review of Systems Constitutional: No Fever, No Chills Respiratory: Cough, Short Of Breath, Wheezing Cardiac: No Chest Pain, No Edema, No Syncope Abdominal/Gastrointestinal: No Abdominal Pain, No Nausea, No Vomiting, No Diarrhea Skin: No Rash Neurological: No Dizziness, No Focal Weakness, No Sensory Changes All Other Systems: Reviewed and Negative Medications & Allergies Home Medications: Home Medication List Albuterol Sulfate [Ventolin Hfa] 1 puff IH Q4H PRN #1 inh 04/14/17 [Rx Confirmed 01/20/21] Atorvastatin Calcium [Lipitor] 40 mg PO HS #30 tablet 04/14/17 [Rx Confirmed 01/20/21] Clopidogrel Bisulfate 75 mg [PLAVIX 75 MG Tablet] 75 mg PO DAILY #30 tablet 04/14/17 [Rx Confirmed 01/20/21] Metoprolol Tartrate 50 mg PO BID #60 tablet 04/14/17 [Rx Confirmed 01/20/21] Lamotrigine [Lamictal] 200 mg PO BID 01/18/21 [History Confirmed 01/20/21] Levetiracetam [Keppra Xr] 500 mg PO BID 01/18/21 [History Confirmed 01/20/21] Ondansetron ODT 4 MG [Zofran Odt 4 mg] 4 mg PO Q6H PRN PRN #10 01/18/21 [Rx Confirmed 01/20/21] lisinopriL [Zestril] 2.5 mg PO DAILY #10 tablet 01/18/21 [Rx Confirmed 01/20/21] Aspirin EC 81 mg [Ecotrin 81 mg] 81 mg PO QAM 01/20/21 [History Confirmed 01/20/21] Allergies/Adverse Reactions: Allergies Allergy/AdvReac Type Severity Reaction Status Date / Time naproxen AdvReac Severe Verified 01/30/18 22:41 - Past Medical History Past Medical History: Yes Neurological History: No Pertinent History ENT History: No Pertinent History Cardiac History: Myocardial Infarction (ND) Respiratory History: COPD Endocrine Medical History: No Pertinent History Musculoskelatal History: No Pertinent History GI Medical History: No Pertinent History History: No Pertinent History Pyscho-Social History: No Pertinent History Male Reproductive Disorders: No Pertinent History Comment: Pt reports that partner reported to him that she tested positive for an STD but he is unsure which one it is. Pt states he see's Dr. Segura for his heart and Dr. Margarito Power for his lungs. Pt denies hx of HTN or high cholesterol but is on medication for both - Past Surgical History Past Surgical History: Yes Neuro Surgical History: No Pertinent History Cardiac History: CABG GI Surgical History: No Pertinent History Genitourinary Surgical Hx: No Pertinent History Musculskeletal Surgical Hx: No Pertinent History Male Surgical History: No Pertinent History Other Surgical History: Pt reports having CABG in March of this year. - Social History Smoking Status: Current every day smoker How long have you smoked: 46 years Exposure to second hand smoke: No Alcohol: None Drug Use: marijuana Significant Family History: no pertinent family hx - Physical Exam Vital Signs: Vital Signs - 24 hr Temp Pulse Resp BP Pulse Ox 01/20/21 07:12 85 20 95 01/20/21 04:00 97.4 F 89 21 124/58 96 01/20/21 03:45 93 L 01/20/21 03:27 94 H 30 H 94 L 01/20/21 00:59 96 01/20/21 00:39 95 01/20/21 00:24 96.9 F 90 37 H 120/70 97 01/20/21 00:20 80 36 H 01/19/21 23:37 88 137/88 98 01/19/21 22:50 84 127/72 96 01/19/21 21:07 106 H 32 H 169/89 97 01/19/21 20:12 92 H 141/65 95 01/19/21 19:17 84 139/78 94 L 01/19/21 19:04 83 30 H 96 01/19/21 18:25 83 18 95 01/19/21 16:49 98.1 F 84 25 H 153/63 100 General Appearance: no apparent distress Neurologic Exam: alert, oriented x 3 Respiratory Exam: prolonged expirations, wheezing Cardiovascular Exam: regular rate/rhythm, normal heart sounds, normal peripheral pulses Gastrointestinal/Abdomen Exam: soft, normal bowel sounds, No tenderness, No mass Results - Labs Lab/Micro Results: Lab Results-Last 24 Hours 01/19/21 01/19/21 01/19/21 Range/Units 16:50 16:50 16:50 WBC 10.5 (4.0-10.5) K/mm3 RBC 5.35 (4.1-5.6) M/mm3 Hgb 16.3 (12.5-18.0) gm/dl Hct 51.1 H (42-50) % MCV 95.5 (78-100) fl MCH 30.5 (26-32) pg MCHC 31.9 L (32-36) g/dl RDW 14.1 H (11.5-14.0) % Plt Count 237 (150-450) K/mm3 MPV 9.7 (7.5-11.0) fl Gran % 70.7 H (36.0-66.0) % Eos # (Auto) 0.06 (0-0.5) Absolute Lymphs (auto) 2.26 (1.0-4.6) Absolute Monos (auto) 0.74 (0.0-1.3) Lymphocytes % 21.5 L (24.0-44.0) % Monocytes % 7.1 (0.0-12.0) % Eosinophils % 0.6 (0.00-5.0) % Basophils % 0.1 (0.0-0.4) % Absolute Granulocytes 7.42 H (1.4-6.9) Basophils # 0.01 (0-0.4) PT 11.1 (9.4-12.5) SECONDS INR 0.94 (0.8-3.0) APTT 28.5 (25.1-36.5) SECONDS Puncture Site pCO2 (35-45) mmHg pO2 (75-100) mmHg Base Excess (-2.0-2.0) O2 Saturation (94-100) g/dF ABG pH (7.35-7.45) ABG HCO3 (22-28) ABG O2 Sat (Measured) (95-100) % Zac Test A-a Gradient a/A Ratio Hemoglobin Carboxyhemoglobin (0.0-6.9) % THgb Methemoglobin (1.4-1.5) % Temperature C POC O2 Flow Rate % Vent Mode Inspiratory BiPAP Expiratory BiPAP Sodium 141 (137-145) mmol/L Potassium 3.7 (3.5-5.1) mmol/L Chloride 100 (98-107) mmol/L Carbon Dioxide 32 H (22-30) mmol/L Anion Gap 13.5 (5-15) MEQ/L BUN 7 L (9-20) mg/dL Creatinine 0.80 (0.66-1.25) mg/dL Estimated GFR > 60.0 ML/MIN Glucose 100 (74-106) mg/dL Calcium 9.6 (8.4-10.2) mg/dL Magnesium (1.6-2.3) mg/dL Total Bilirubin 0.70 (0.2-1.3) mg/dL AST 31 (17-59) U/L ALT 20 (0-50) U/L Alkaline Phosphatase 104 (38-126) U/L Troponin I (0.000-0.034) ng/mL NT-Pro-B Natriuret Pep (0-900) pg/mL Serum Total Protein 6.8 (6.3-8.2) g/dL Albumin 4.3 (3.5-5.0) g/dL SARS-CoV-2 (PCR) (NEGATIVE) 01/19/21 01/19/21 01/19/21 Range/Units 16:50 18:55 19:40 WBC (4.0-10.5) K/mm3 RBC (4.1-5.6) M/mm3 Hgb (12.5-18.0) gm/dl Hct (42-50) % MCV (78-100) fl MCH (26-32) pg MCHC (32-36) g/dl RDW (11.5-14.0) % Plt Count (150-450) K/mm3 MPV (7.5-11.0) fl Gran % (36.0-66.0) % Eos # (Auto) (0-0.5) Absolute Lymphs (auto) (1.0-4.6) Absolute Monos (auto) (0.0-1.3) Lymphocytes % (24.0-44.0) % Monocytes % (0.0-12.0) % Eosinophils % (0.00-5.0) % Basophils % (0.0-0.4) % Absolute Granulocytes (1.4-6.9) Basophils # (0-0.4) PT (9.4-12.5) SECONDS INR (0.8-3.0) APTT (25.1-36.5) SECONDS Puncture Site RIGHT RADIAL pCO2 52 H (35-45) mmHg pO2 161 H* (75-100) mmHg Base Excess 3.6 H (-2.0-2.0) O2 Saturation 96.0 (94-100) g/dF ABG pH 7.37 (7.35-7.45) ABG HCO3 30.1 H* (22-28) ABG O2 Sat (Measured) 99.8 (95-100) % Zac Test YES A-a Gradient 59 a/A Ratio 0.73 Hemoglobin 15.4 Carboxyhemoglobin 2.9 (0.0-6.9) % THgb Methemoglobin 0.9 L (1.4-1.5) % Temperature 37.0 C POC O2 Flow Rate 40 % Vent Mode BiPAP Inspiratory BiPAP 10 Expiratory BiPAP 4 Sodium (137-145) mmol/L Potassium 3.9 (3.5-5.1) mmol/L Chloride (98-107) mmol/L Carbon Dioxide (22-30) mmol/L Anion Gap (5-15) MEQ/L BUN (9-20) mg/dL Creatinine (0.66-1.25) mg/dL Estimated GFR ML/MIN Glucose (74-106) mg/dL Calcium (8.4-10.2) mg/dL Magnesium (1.6-2.3) mg/dL Total Bilirubin (0.2-1.3) mg/dL AST (17-59) U/L ALT (0-50) U/L Alkaline Phosphatase (38-126) U/L Troponin I 0.016 0.024 (0.000-0.034) ng/mL NT-Pro-B Natriuret Pep (0-900) pg/mL Serum Total Protein (6.3-8.2) g/dL Albumin (3.5-5.0) g/dL SARS-CoV-2 (PCR) (NEGATIVE) 01/19/21 01/19/21 01/19/21 Range/Units 20:47 21:25 22:10 WBC (4.0-10.5) K/mm3 RBC (4.1-5.6) M/mm3 Hgb (12.5-18.0) gm/dl Hct (42-50) % MCV (78-100) fl MCH (26-32) pg MCHC (32-36) g/dl RDW (11.5-14.0) % Plt Count (150-450) K/mm3 MPV (7.5-11.0) fl Gran % (36.0-66.0) % Eos # (Auto) (0-0.5) Absolute Lymphs (auto) (1.0-4.6) Absolute Monos (auto) (0.0-1.3) Lymphocytes % (24.0-44.0) % Monocytes % (0.0-12.0) % Eosinophils % (0.00-5.0) % Basophils % (0.0-0.4) % Absolute Granulocytes (1.4-6.9) Basophils # (0-0.4) PT (9.4-12.5) SECONDS INR (0.8-3.0) APTT (25.1-36.5) SECONDS Puncture Site pCO2 (35-45) mmHg pO2 (75-100) mmHg Base Excess (-2.0-2.0) O2 Saturation (94-100) g/dF ABG pH (7.35-7.45) ABG HCO3 (22-28) ABG O2 Sat (Measured) (95-100) % Zac Test A-a Gradient a/A Ratio Hemoglobin Carboxyhemoglobin (0.0-6.9) % THgb Methemoglobin (1.4-1.5) % Temperature C POC O2 Flow Rate % Vent Mode Inspiratory BiPAP Expiratory BiPAP Sodium (137-145) mmol/L Potassium (3.5-5.1) mmol/L Chloride (98-107) mmol/L Carbon Dioxide (22-30) mmol/L Anion Gap (5-15) MEQ/L BUN (9-20) mg/dL Creatinine (0.66-1.25) mg/dL Estimated GFR ML/MIN Glucose (74-106) mg/dL Calcium (8.4-10.2) mg/dL Magnesium (1.6-2.3) mg/dL Total Bilirubin (0.2-1.3) mg/dL AST (17-59) U/L ALT (0-50) U/L Alkaline Phosphatase (38-126) U/L Troponin I 0.020 (0.000-0.034) ng/mL NT-Pro-B Natriuret Pep 1370 H (0-900) pg/mL Serum Total Protein (6.3-8.2) g/dL Albumin (3.5-5.0) g/dL SARS-CoV-2 (PCR) NEGATIVE (NEGATIVE) 01/20/21 01/20/21 01/20/21 Range/Units 01:20 03:58 06:05 WBC (4.0-10.5) K/mm3 RBC (4.1-5.6) M/mm3 Hgb (12.5-18.0) gm/dl Hct (42-50) % MCV (78-100) fl MCH (26-32) pg MCHC (32-36) g/dl RDW (11.5-14.0) % Plt Count (150-450) K/mm3 MPV (7.5-11.0) fl Gran % (36.0-66.0) % Eos # (Auto) (0-0.5) Absolute Lymphs (auto) (1.0-4.6) Absolute Monos (auto) (0.0-1.3) Lymphocytes % (24.0-44.0) % Monocytes % (0.0-12.0) % Eosinophils % (0.00-5.0) % Basophils % (0.0-0.4) % Absolute Granulocytes (1.4-6.9) Basophils # (0-0.4) PT (9.4-12.5) SECONDS INR (0.8-3.0) APTT (25.1-36.5) SECONDS Puncture Site RIGHT RADIAL pCO2 43 (35-45) mmHg pO2 79 (75-100) mmHg Base Excess 2.9 H (-2.0-2.0) O2 Saturation 95.3 (94-100) g/dF ABG pH 7.42 (7.35-7.45) ABG HCO3 27.9 (22-28) ABG O2 Sat (Measured) 97.8 (95-100) % Zac Test YES A-a Gradient 95 a/A Ratio 0.45 Hemoglobin 14.6 Carboxyhemoglobin 1.7 (0.0-6.9) % THgb Methemoglobin 1.0 L (1.4-1.5) % Temperature 37.0 C POC O2 Flow Rate 32 % Vent Mode Inspiratory BiPAP Expiratory BiPAP Sodium (137-145) mmol/L Potassium 4.1 (3.5-5.1) mmol/L Chloride (98-107) mmol/L Carbon Dioxide (22-30) mmol/L Anion Gap (5-15) MEQ/L BUN (9-20) mg/dL Creatinine (0.66-1.25) mg/dL Estimated GFR ML/MIN Glucose (74-106) mg/dL Calcium (8.4-10.2) mg/dL Magnesium (1.6-2.3) mg/dL Total Bilirubin (0.2-1.3) mg/dL AST (17-59) U/L ALT (0-50) U/L Alkaline Phosphatase (38-126) U/L Troponin I 0.025 0.016 (0.000-0.034) ng/mL NT-Pro-B Natriuret Pep (0-900) pg/mL Serum Total Protein (6.3-8.2) g/dL Albumin (3.5-5.0) g/dL SARS-CoV-2 (PCR) (NEGATIVE) 01/20/21 01/20/21 Range/Units 06:05 06:05 WBC 7.9 (4.0-10.5) K/mm3 RBC 4.60 (4.1-5.6) M/mm3 Hgb 14.1 (12.5-18.0) gm/dl Hct 44.6 (42-50) % MCV 97.0 (78-100) fl MCH 30.7 (26-32) pg MCHC 31.6 L (32-36) g/dl RDW 14.2 H (11.5-14.0) % Plt Count 211 (150-450) K/mm3 MPV 10.0 (7.5-11.0) fl Gran % (36.0-66.0) % Eos # (Auto) (0-0.5) Absolute Lymphs (auto) (1.0-4.6) Absolute Monos (auto) (0.0-1.3) Lymphocytes % (24.0-44.0) % Monocytes % (0.0-12.0) % Eosinophils % (0.00-5.0) % Basophils % (0.0-0.4) % Absolute Granulocytes (1.4-6.9) Basophils # (0-0.4) PT (9.4-12.5) SECONDS INR (0.8-3.0) APTT (25.1-36.5) SECONDS Puncture Site pCO2 (35-45) mmHg pO2 (75-100) mmHg Base Excess (-2.0-2.0) O2 Saturation (94-100) g/dF ABG pH (7.35-7.45) ABG HCO3 (22-28) ABG O2 Sat (Measured) (95-100) % Zac Test A-a Gradient a/A Ratio Hemoglobin Carboxyhemoglobin (0.0-6.9) % THgb Methemoglobin (1.4-1.5) % Temperature C POC O2 Flow Rate % Vent Mode Inspiratory BiPAP Expiratory BiPAP Sodium 138 (137-145) mmol/L Potassium 4.5 D (3.5-5.1) mmol/L Chloride 98 (98-107) mmol/L Carbon Dioxide 29 (22-30) mmol/L Anion Gap 15.0 (5-15) MEQ/L BUN 11 (9-20) mg/dL Creatinine 0.70 (0.66-1.25) mg/dL Estimated GFR > 60.0 ML/MIN Glucose 175 H (74-106) mg/dL Calcium 9.2 (8.4-10.2) mg/dL Magnesium 1.8 (1.6-2.3) mg/dL Total Bilirubin 0.60 (0.2-1.3) mg/dL AST 26 (17-59) U/L ALT 19 (0-50) U/L Alkaline Phosphatase 91 (38-126) U/L Troponin I (0.000-0.034) ng/mL NT-Pro-B Natriuret Pep (0-900) pg/mL Serum Total Protein 5.7 L (6.3-8.2) g/dL Albumin 3.6 (3.5-5.0) g/dL SARS-CoV-2 (PCR) (NEGATIVE) - Radiology Impressions Radiology Exams & Impressions: Radiology Procedures Category Date Time Status CHEST 1 VIEW (PORTABLE) Stat Exams 01/19/21 16:27 Completed CHEST WITH CONTRAST [CT] Stat Exams 01/19/21 18:52 Completed - Other Procedures and Tests Respiratory Therapy 01/19/21 17:00 BiPap/CPAP ROUTINE 01/19/21 20:31 Respiratory Therapy Assessment DAILY 01/20/21 00:20 Oxygen Nasal Cannula 3 lpm Assessment/Plan (1) COPD exacerbation Current Visit: Yes Status: Acute Assessment & Plan: rocephin and zithromax, ordered solu medrol 80mg IV q6 hrs, sputum culture ordered. nebulizers. Code(s): J44.1 - CHRONIC OBSTRUCTIVE PULMONARY DISEASE W (ACUTE) EXACERBATION (2) Acute hypoxemic respiratory failure Current Visit: No Status: Acute Code(s): J96.01 - ACUTE RESPIRATORY FAILURE WITH HYPOXIA
[2021-01-20] MEDS ORDERED: Ventolin Hfa MDI IH PRN (09:54)
[2021-01-20] MEDS ORDERED: ZOFRAN ODT 4 MG PO PRN (09:54)
[2021-01-20] MEDS ORDERED: VENTOLIN COMMON CANISTER IH PRN (09:58)
[2021-01-20] MEDS ORDERED: Zofran 4 MG/2 ML VIAL IV PRN (09:59)
[2021-01-20] MEDS ORDERED: LEVETIRACETAM 500 MG PO SCH (10:00)
[2021-01-20] MEDS ORDERED: NON-FORMULARY ITEM (Lamotrigine [Lamictal] 200 MG Tablet) PO SCH (10:00)
[2021-01-20] MEDS ORDERED: NON-FORMULARY ITEM (Lisinopril [Zestril] 2.5 MG Tablet) PO SCH (10:00)
[2021-01-20] MEDS: Lopressor 50 MG PO SCH ×2 (11:13→20:19)
[2021-01-20] MEDS: Zestril 5 MG PO SCH (11:13)
[2021-01-20] MEDS: PLAVIX 75 MG Tablet PO SCH (11:13)
[2021-01-20] MEDS: solu-MEDROL 80 MG, Sterile H2O 10 ml 2 ML IV SCH ×4 (11:14→17:59)
[2021-01-20] MEDS: KEPPRA 500 MG PO SCH ×2 (11:14→20:19)
[2021-01-20] MEDS: lamICTAL 100MG TABLET PO SCH ×2 (11:14→20:19)
[2021-01-20] MEDS: ECOTRIN 81 MG PO SCH (11:14)
[2021-01-20] MEDS: ENOXAPARIN SODIUM SQ SCH (11:15)
[2021-01-20] MEDS: Zithromax 500 MG/ 250 ML NaCl Premix 500 MG/250 ML IVPB IV SCH (11:20)
[2021-01-20] MEDS ORDERED: solu-MEDROL IV SCH (12:00)
[2021-01-20] MEDS: ZOCOR 20MG PO SCH (20:19)
[2021-01-20] MEDS: ROCEPHIN 1 Gm-D5w 50 ml Bag** 1 G/50 ML IVPB IV SCH (20:20)
[2021-01-20] MEDS ORDERED: LIPITOR 40MG PO SCH (22:00)
[2021-01-21] MEDS: solu-MEDROL 80 MG, Sterile H2O 10 ml 2 ML IV SCH ×8 (00:23→18:28)
[2021-01-21] MEDS: DUONEB 0.5-3 MG/3 ml Neb IH SCH ×6 (02:52→23:21)
[2021-01-21 06:08] LABS: Absolute Neutrophil Ct (ANC) 12.62 (1.4-6.9); BASOPHIL % 0.1 % (0.0-0.4); Basophil (Absolute #) 0.01 (0-0.4); Eosinophil (Absolute #) 0 (0-0.5); Hematocrit 43.1 % (42-50); Hemoglobin 13.7 gm/dl (12.5-18.0); Lymphocytes % 6.4 % (24.0-44.0); Mean Cell Volume 95.4 fl (78-100); Mean Corpuscular Hemoglobin 30.3 pg (26-32); Mean Corpuscular Hgb Concent. 31.8 g/dl (32-36); Monocyte (Absolute #) 0.56 (0.0-1.3); Neutrophil % 89.5 % (36.0-66.0); Platelet Count 229 K/mm3 (150-450); Red Blood Count 4.52 M/mm3 (4.1-5.6); Red Cell Distribution Width 14.1 % (11.5-14.0); White Blood Count 14.1 K/mm3 (4.0-10.5)
[2021-01-21 06:28] LABS: ANION GAP 11.3 MEQ/L (5-15); BLOOD UREA NITROGEN 12 mg/dL (9-20); CHLORIDE 100 mmol/L (98-107); Calcium 8.8 mg/dL (8.4-10.2); Carbon Dioxide 29 mmol/L (22-30); Creatinine 1 0.63 mg/dL (0.66-1.25); EST GLOMERULAR FILTRATION RATE > 60.0 ML/MIN; Glucose 156 mg/dL (74-106); MAGNESIUM 2.1 mg/dL (1.6-2.3); SODIUM 136 mmol/L (137-145)
[2021-01-21] MEDS: KEPPRA 500 MG PO SCH ×4 (08:23→20:33)
[2021-01-21] MEDS: ENOXAPARIN SODIUM SQ SCH (08:23)
[2021-01-21] MEDS: Lopressor 50 MG PO SCH ×3 (08:23→20:33)
[2021-01-21] MEDS: PLAVIX 75 MG Tablet PO SCH ×2 (08:23→08:26)
[2021-01-21] MEDS: lamICTAL 100MG TABLET PO SCH ×3 (08:24→20:31)
[2021-01-21] MEDS: Zestril 5 MG PO SCH (08:24)
[2021-01-21] MEDS: ECOTRIN 81 MG PO SCH ×2 (08:24→08:26)
--- NOTE | 2021-01-21 09:28 | PCM.NOTE ---
Date and Time: 01/21/21926 Subjective Assessment: patient notes some improvement, still coughing and wheezing, short of breath at times. Objective Exam General Appearance: no apparent distress, alert Respiratory Exam: prolonged expirations, wheezing Cardiovascular Exam: regular rate/rhythm, normal heart sounds Gastrointestinal/Abdomen Exam: soft, No tenderness, No mass Extremity Exam: normal inspection, normal range of motion OBJECTIVE DATA Vital Signs: Vital Signs - 24 hr Temp Pulse Resp BP Pulse Ox 01/21/21 08:00 98 F 96 H 30 H 124/58 94 L 01/21/21 06:41 100 H 24 95 01/21/21 04:00 97.1 F 81 23 120/57 93 L 01/21/21 02:52 84 19 94 L 01/20/21 23:59 97 F 90 24 108/58 93 L 01/20/21 22:47 88 20 94 L 01/20/21 20:00 98.6 F 94 H 20 121/54 94 L 01/20/21 19:17 88 18 93 L 01/20/21 16:00 98.4 F 88 16 122/65 94 L 01/20/21 15:01 81 20 91 L 01/20/21 12:00 98.3 F 98 H 18 101/55 92 L 01/20/21 10:58 82 22 93 L Pain Assessment - Last Documented Pain Intensity 0 Intake and Output: Intake & Output 01/18/21 01/19/21 01/20/21 01/21/21 11:59 11:59 11:59 11:59 Intake Total 840 1740 Output Total 400 875 Balance 440 865 Weight 83.3 kg 84.6 kg Lab Results: Lab Results-Last 24 Hours 01/21/21 01/21/21 Range/Units 05:30 05:30 WBC 14.1 H (4.0-10.5) K/mm3 RBC 4.52 (4.1-5.6) M/mm3 Hgb 13.7 (12.5-18.0) gm/dl Hct 43.1 (42-50) % MCV 95.4 (78-100) fl MCH 30.3 (26-32) pg MCHC 31.8 L (32-36) g/dl RDW 14.1 H (11.5-14.0) % Plt Count 229 (150-450) K/mm3 MPV 10.0 (7.5-11.0) fl Gran % 89.5 H (36.0-66.0) % Eos # (Auto) 0 (0-0.5) Absolute Lymphs (auto) 0.90 L (1.0-4.6) Absolute Monos (auto) 0.56 (0.0-1.3) Lymphocytes % 6.4 L (24.0-44.0) % Monocytes % 4.0 (0.0-12.0) % Eosinophils % 0.0 (0.00-5.0) % Basophils % 0.1 (0.0-0.4) % Absolute Granulocytes 12.62 H (1.4-6.9) Basophils # 0.01 (0-0.4) Sodium 136 L (137-145) mmol/L Potassium 4.0 (3.5-5.1) mmol/L Chloride 100 (98-107) mmol/L Carbon Dioxide 29 (22-30) mmol/L Anion Gap 11.3 (5-15) MEQ/L BUN 12 (9-20) mg/dL Creatinine 0.63 L (0.66-1.25) mg/dL Estimated GFR > 60.0 ML/MIN Glucose 156 H (74-106) mg/dL Calcium 8.8 (8.4-10.2) mg/dL Magnesium 2.1 (1.6-2.3) mg/dL Radiology Exams: Radiology Procedures Category Date Time Status CHEST 1 VIEW (PORTABLE) Stat Exams 01/19/21 16:27 Completed CHEST WITH CONTRAST [CT] Stat Exams 01/19/21 18:52 Completed Assessment/Plan (1) COPD exacerbation Current Visit: Yes Status: Acute Assessment & Plan: continue rocephin/zithromax, nebs and IV solu medrol, some improvement. will needs qualified for home oxygen when discharged. Code(s): J44.1 - CHRONIC OBSTRUCTIVE PULMONARY DISEASE W (ACUTE) EXACERBATION (2) Acute hypoxemic respiratory failure Current Visit: No Status: Acute Code(s): J96.01 - ACUTE RESPIRATORY FAILURE WITH HYPOXIA
[2021-01-21] MEDS: Zithromax 500 MG/ 250 ML NaCl Premix 500 MG/250 ML IVPB IV SCH (11:06)
[2021-01-21] MEDS: ZOCOR 20MG PO SCH (20:32)
[2021-01-21] MEDS: ROCEPHIN 1 Gm-D5w 50 ml Bag** 1 G/50 ML IVPB IV SCH (20:32)
[2021-01-22] MEDS: solu-MEDROL 80 MG, Sterile H2O 10 ml 2 ML IV SCH ×8 (00:30→17:34)
[2021-01-22] MEDS: DUONEB 0.5-3 MG/3 ml Neb IH SCH ×6 (03:51→23:27)
[2021-01-22 05:16] LABS: Absolute Neutrophil Ct (ANC) 12.16 (1.4-6.9); Basophil (Absolute #) 0 (0-0.4); Eosinophil (Absolute #) 0 (0-0.5); Hematocrit 43.9 % (42-50); Hemoglobin 13.8 gm/dl (12.5-18.0); Lymphocyte (Absolute #) 1.09 (1.0-4.6); Mean Cell Volume 97.1 fl (78-100); Mean Corpuscular Hemoglobin 30.5 pg (26-32); Mean Corpuscular Hgb Concent. 31.4 g/dl (32-36); Mean Platelet Volume 10.1 fl (7.5-11.0); Monocyte (Absolute #) 0.36 (0.0-1.3); Monocytes % 2.6 % (0.0-12.0); Neutrophil % 89.4 % (36.0-66.0); Platelet Count 230 K/mm3 (150-450); Red Blood Count 4.52 M/mm3 (4.1-5.6); Red Cell Distribution Width 14.2 % (11.5-14.0); White Blood Count 13.6 K/mm3 (4.0-10.5)
[2021-01-22 05:29] LABS: ANION GAP 13.7 MEQ/L (5-15); BLOOD UREA NITROGEN 13 mg/dL (9-20); CHLORIDE 97 mmol/L (98-107); Calcium 8.9 mg/dL (8.4-10.2); Carbon Dioxide 29 mmol/L (22-30); EST GLOMERULAR FILTRATION RATE > 60.0 ML/MIN; Glucose 164 mg/dL (74-106); Potassium 4.5 mmol/L (3.5-5.1); SODIUM 135 mmol/L (137-145)
--- NOTE | 2021-01-22 08:47 | PCM.NOTE ---
Date and Time: 01/22/21 0846 Subjective Assessment: patient reports he is feeling better, still has some cough and shortness of breath Objective Exam General Appearance: no apparent distress, alert Respiratory Exam: rhonchi, wheezing Cardiovascular Exam: regular rate/rhythm, normal heart sounds Gastrointestinal/Abdomen Exam: soft, No tenderness, No mass Extremity Exam: normal inspection, normal range of motion OBJECTIVE DATA Vital Signs: Vital Signs - 24 hr Temp Pulse Resp BP Pulse Ox 01/22/21 07:31 78 20 90 L 01/22/21 07:26 98.6 F 72 20 125/76 91 L 01/22/21 04:00 97.6 F 85 18 104/61 90 L 01/22/21 03:52 80 27 H 93 L 01/21/21 23:21 77 26 H 93 L 01/21/21 23:17 97.3 F 72 19 113/53 93 L 01/21/21 19:38 83 16 93 L 01/21/21 19:36 97.2 F 75 16 111/53 93 L 01/21/21 16:00 97.5 F 84 18 107/51 93 L 01/21/21 15:38 77 24 93 L 01/21/21 11:25 98.7 F 78 24 119/55 91 L 01/21/21 11:13 92 H 20 93 L Pain Assessment - Last Documented Pain Intensity 0 Intake and Output: Intake & Output 01/19/21 01/20/21 01/21/21 01/22/21 11:59 11:59 11:59 11:59 Intake Total 840 1860 1790 Output Total 400 875 960 Balance 440 985 830 Weight 83.3 kg 84.6 kg 84.5 kg Lab Results: Lab Results-Last 24 Hours 01/22/21 01/22/21 Range/Units 04:45 04:45 WBC 13.6 H (4.0-10.5) K/mm3 RBC 4.52 (4.1-5.6) M/mm3 Hgb 13.8 (12.5-18.0) gm/dl Hct 43.9 (42-50) % MCV 97.1 (78-100) fl MCH 30.5 (26-32) pg MCHC 31.4 L (32-36) g/dl RDW 14.2 H (11.5-14.0) % Plt Count 230 (150-450) K/mm3 MPV 10.1 (7.5-11.0) fl Gran % 89.4 H (36.0-66.0) % Eos # (Auto) 0 (0-0.5) Absolute Lymphs (auto) 1.09 (1.0-4.6) Absolute Monos (auto) 0.36 (0.0-1.3) Lymphocytes % 8.0 L (24.0-44.0) % Monocytes % 2.6 (0.0-12.0) % Eosinophils % 0.0 (0.00-5.0) % Basophils % 0.0 (0.0-0.4) % Absolute Granulocytes 12.16 H (1.4-6.9) Basophils # 0 (0-0.4) Sodium 135 L (137-145) mmol/L Potassium 4.5 (3.5-5.1) mmol/L Chloride 97 L (98-107) mmol/L Carbon Dioxide 29 (22-30) mmol/L Anion Gap 13.7 (5-15) MEQ/L BUN 13 (9-20) mg/dL Creatinine 0.70 (0.66-1.25) mg/dL Estimated GFR > 60.0 ML/MIN Glucose 164 H (74-106) mg/dL Calcium 8.9 (8.4-10.2) mg/dL Multi-Disciplinary Progress Notes: Multi-Disciplinary Progress Notes 01/21/21 16:05 Respiratory Note by Donya Suggs RESTING ROOM AIR SAT 87%. PLACED ON 3L NASAL CANNULA SATS 93% Initialized on 01/21/21 16:05 - END OF NOTE Assessment/Plan (1) COPD exacerbation Current Visit: Yes Status: Acute Assessment & Plan: continue current managment with rocephin/zithromax, IV solu medrol and nebulizer therapy, continues to improve. will likely need home oxygen on discharge Code(s): J44.1 - CHRONIC OBSTRUCTIVE PULMONARY DISEASE W (ACUTE) EXACERBATION (2) Acute hypoxemic respiratory failure Current Visit: No Status: Acute Code(s): J96.01 - ACUTE RESPIRATORY FAILURE WITH HYPOXIA
[2021-01-22] MEDS: Zestril 5 MG PO SCH (09:15)
[2021-01-22] MEDS: ENOXAPARIN SODIUM SQ SCH (09:15)
[2021-01-22] MEDS: Zithromax 500 MG/ 250 ML NaCl Premix 500 MG/250 ML IVPB IV SCH (09:15)
[2021-01-22] MEDS: lamICTAL 100MG TABLET PO SCH ×2 (09:16→21:31)
[2021-01-22] MEDS: Lopressor 50 MG PO SCH ×2 (09:16→21:31)
[2021-01-22] MEDS: KEPPRA 500 MG PO SCH ×2 (09:16→21:32)
[2021-01-22] MEDS: ROCEPHIN 1 Gm-D5w 50 ml Bag** 1 G/50 ML IVPB IV SCH (21:32)
[2021-01-22] MEDS: ZOCOR 20MG PO SCH (21:32)
[2021-01-23] MEDS: solu-MEDROL 80 MG, Sterile H2O 10 ml 2 ML IV SCH ×4 (03:17→08:52)
[2021-01-23] MEDS: DUONEB 0.5-3 MG/3 ml Neb IH SCH ×2 (03:22→05:56)
[2021-01-23 05:25] LABS: Absolute Neutrophil Ct (ANC) 8.74 (1.4-6.9); Basophil (Absolute #) 0 (0-0.4); Eosinophil (Absolute #) 0 (0-0.5); Hematocrit 42.8 % (42-50); Hemoglobin 13.9 gm/dl (12.5-18.0); Lymphocyte (Absolute #) 0.94 (1.0-4.6); Lymphocytes % 9.3 % (24.0-44.0); Mean Cell Volume 95.1 fl (78-100); Mean Corpuscular Hemoglobin 30.9 pg (26-32); Mean Corpuscular Hgb Concent. 32.5 g/dl (32-36); Mean Platelet Volume 9.9 fl (7.5-11.0); Neutrophil % 86.7 % (36.0-66.0); Platelet Count 212 K/mm3 (150-450); Red Cell Distribution Width 13.8 % (11.5-14.0); White Blood Count 10.1 K/mm3 (4.0-10.5)
[2021-01-23 06:20] LABS: ALBUMIN 3.3 g/dL (3.5-5.0); ANION GAP 12.9 MEQ/L (5-15); BILIRUBIN,TOTAL 0.5 mg/dL (0.2-1.3); Calcium 8.8 mg/dL (8.4-10.2); Creatinine 1 2.09 mg/dL (0.66-1.25); EST GLOMERULAR FILTRATION RATE 34.8 ML/MIN; Potassium 5.1 mmol/L (3.5-5.1); Total Protein 6.3 g/dL (6.3-8.2)
[2021-01-23 08:42] VITALS: BP 118/59; PULSE 80; O2SAT 90
[2021-01-23] MEDS: PLAVIX 75 MG Tablet PO SCH (08:51)
[2021-01-23] MEDS: KEPPRA 500 MG PO SCH (08:51)
[2021-01-23] MEDS: lamICTAL 100MG TABLET PO SCH (08:51)
[2021-01-23] MEDS: ECOTRIN 81 MG PO SCH (08:51)
[2021-01-23] MEDS: Lopressor 50 MG PO SCH (08:51)
[2021-01-23] MEDS: Zestril 5 MG PO SCH (08:51)
[2021-01-23] MEDS: ENOXAPARIN SODIUM SQ SCH (08:53)
[2021-01-23] MEDS: Zithromax 500 MG/ 250 ML NaCl Premix 500 MG/250 ML IVPB IV SCH (08:53)
--- NOTE | 2021-01-23 09:04 | PCM.DS ---
Discharge Summary Date of Admission: 01/20/21 08:08 Admitting Physician: WILMA ABRAHAM Primary Care Provider: LILLIANA FRANKLIN Allergies Allergies naproxen Adverse Reaction (Severe, Verified 01/30/18 22:41) difficulty breathing Hospital Summary - Hospital Course Hospital Course: patient was admitted with cough, wheezing and shortness of breath. hypoxic on arrival, was on oxygen in the past but since [facility] closed he was unable to get again. he is doing well now but will require home oxygen, breathing is back to baseline - Vitals & Intake/Output Vital Signs: Vital Signs Temperature 98.6 F 01/23/21 08:00 Pulse Rate 80 01/23/21 08:00 Respiratory Rate 20 01/23/21 08:00 Blood Pressure 118/59 01/23/21 08:00 O2 Sat by Pulse Oximetry 90 L 01/23/21 08:00 Intake & Output: Intake & Output 01/20/21 01/21/21 01/22/21 01/23/21 11:59 11:59 11:59 11:59 Intake Total 840 1860 2270 720 Output Total 400 875 960 950 Balance 755 779 3966 -230 Weight 83.3 kg 84.6 kg 84.5 kg 85.6 kg - Lab Result Diagrams: 01/23/21 04:45 01/23/21 04:36 Lab Results-Last 24 Hrs: Lab Results-Last 24 Hours 01/23/21 01/23/21 01/23/21 Range/Units 04:36 04:45 07:57 WBC 10.1 (4.0-10.5) K/mm3 RBC 4.50 (4.1-5.6) M/mm3 Hgb 13.9 (12.5-18.0) gm/dl Hct 42.8 (42-50) % MCV 95.1 (78-100) fl MCH 30.9 (26-32) pg MCHC 32.5 (32-36) g/dl RDW 13.8 (11.5-14.0) % Plt Count 212 (150-450) K/mm3 MPV 9.9 (7.5-11.0) fl Gran % 86.7 H (36.0-66.0) % Eos # (Auto) 0 (0-0.5) Absolute Lymphs (auto) 0.94 L (1.0-4.6) Absolute Monos (auto) 0.40 (0.0-1.3) Lymphocytes % 9.3 L (24.0-44.0) % Monocytes % 4.0 (0.0-12.0) % Eosinophils % 0.0 (0.00-5.0) % Basophils % 0.0 (0.0-0.4) % Absolute Granulocytes 8.74 H (1.4-6.9) Basophils # 0 (0-0.4) Sodium 142 D (137-145) mmol/L Potassium 5.1 (3.5-5.1) mmol/L Chloride 104 (98-107) mmol/L Carbon Dioxide 30 (22-30) mmol/L Anion Gap 12.9 (5-15) MEQ/L BUN 38 H (9-20) mg/dL Creatinine 2.09 H (0.66-1.25) mg/dL Estimated GFR 34.8 ML/MIN Glucose 72 L (74-106) mg/dL POC Glucometer 197 H (74 to 106) mg/dL Calcium 8.8 (8.4-10.2) mg/dL Total Bilirubin 0.50 (0.2-1.3) mg/dL AST 23 (17-59) U/L ALT 13 (0-50) U/L Alkaline Phosphatase 105 (38-126) U/L Serum Total Protein 6.3 (6.3-8.2) g/dL Albumin 3.3 L (3.5-5.0) g/dL Micro Results-Entire Visit: Microbiology 01/19/21 22:15 Blood Culture - Preliminary Blood NO GROWTH TO DATE 01/19/21 20:55 Blood Culture - Preliminary Blood NO GROWTH TO DATE - Procedures and Test Procedures and Tests throughout Hospitalization: Therapy Orders & Screens 01/19/21 17:00 BiPap/CPAP ROUTINE Comment: 01/19/21 20:31 Respiratory Therapy Assessment DAILY Comment: 01/19/21 22:20 Respiratory Therapy Consult ROUTINE Comment: Reason For Exam: 01/20/21 00:20 Oxygen Nasal Cannula 3 lpm Comment: NC 3 LPM when off Bipap Diagnosis: COPD 01/20/21 00:42 OT Screen per Nursing Assess ONCE Comment: Protocol Order Physician Instructions: Greater than 3 points order OT Admission Screening Reason For Exam: Triggered on Admission Diagnosis: COPD Open Wound/Cellutlitis/Pressure Ulcers: No Acute Fx/ORIF/Change in wt bearing status: No Severe MUSCULOSKELETAL pain: No ADL Dysfunction: Yes Acute CVA w/Hemiparesis/Hemiplegia: No Decreased Functional Mobility/Strength: Yes Sprain/Strain: No Acute Post-op Mobility Dysfunction: No Total Points: 4 PT Screen per Nursing Assess ONCE Comment: Protocol Order Physician Instructions: Greater than 3 points order PT Admission Screenin Reason For Exam: Triggered on Admission Diagnosis: COPD Open Wound/Cellutlitis/Pressure Ulcers: No Acute Fx/ORIF/Change in wt bearing status: No Severe MUSCULOSKELETAL pain: No ADL Dysfunction: Yes Acute CVA w/Hemiparesis/Hemiplegia: No Decreased Functional Mobility/Strength: Yes Sprain/Strain: No Acute Post-op Mobility Dysfunction: No Total Points: 4 RT Screen per Nursing Assess ONCE Comment: Protocol Order Physician Instructions: Greater than 3 points order RT Admission Screen Reason For Exam: Triggered on Admission Diagnosis: COPD Diagnosis: COPD Pneumonia: No Home O2: No Asthma: Yes CHF: Yes Home CPAP/BIPAP: No Home Nebs/MDI: Yes Total Points: 12 Smoking Cessation Education ONCE Comment: Diagnosis: COPD Smoking Status: Current every day smoker How long have you smoked: 46 years Have you smoked in the past 12 months: Yes Approximately how many cigarettes per day: 3 Do you dip or chew tobacco: No If,Former Smoker,when did you quit: week ago 01/21/21 19:58 Flutter Therapy UD Comment: Diagnosis: COPD Discharge Exam General Appearance: no apparent distress Neurologic Exam: alert, oriented x 3 Respiratory Exam: prolonged expirations, rhonchi Cardiovascular Exam: regular rate/rhythm, normal heart sounds Gastrointestinal/Abdomen Exam: soft, No tenderness, No mass Extremity Exam: normal inspection, normal range of motion Skin Exam: normal color, warm, dry Final Diagnosis/Problem List - Final Discharge Diagnosis/Problem (1) COPD exacerbation Current Visit: Yes Status: Acute Assessment & Plan: home on nebs, prednisone taper and levaquin Code(s): J44.1 - CHRONIC OBSTRUCTIVE PULMONARY DISEASE W (ACUTE) EXACERBATION (2) Acute on chronic respiratory failure with hypoxemia Current Visit: Yes Status: Acute Assessment & Plan: qualified for home oxygen, will need on discharge Code(s): J96.21 - ACUTE AND CHRONIC RESPIRATORY FAILURE WITH HYPOXIA - Discharge Disposition: Home, Self-Care Condition: Stable Prescriptions: New Prednisone 20 mg [Deltasone 20 mg] 20 mg PO UD #18 tablet Albuterol/Ipratropium 3ml Neb* [DUONEB 0.5-3 MG/3 ml Neb] 3 ml IH Q4-6HPRN PRN #100 packet PRN Reason: Shortness Of Breath Levofloxacin [Levofloxacin 500 MG Tablet] 500 mg PO DAILY #7 tablet Continue Atorvastatin Calcium [Lipitor] 40 mg PO HS #30 tablet Metoprolol Tartrate 50 mg PO BID #60 tablet Clopidogrel Bisulfate 75 mg [PLAVIX 75 MG Tablet] 75 mg PO DAILY #30 tablet Albuterol Sulfate [Ventolin Hfa] 1 puff IH Q4H PRN #1 inh PRN Reason: Shortness Of Breath Levetiracetam [Keppra Xr] 500 mg PO BID Lamotrigine [Lamictal] 200 mg PO BID Ondansetron ODT 4 MG [Zofran Odt 4 mg] 4 mg PO Q6H PRN PRN #10 PRN Reason: Nausea/Vomiting lisinopriL [Zestril] 2.5 mg PO DAILY #10 tablet Aspirin EC 81 mg [Ecotrin 81 mg] 81 mg PO QAM Additional Instructions: CALL JACKIE COLLADO AT [phone] TO SEE IF THERE IS ANY ADDITIONAL FINANCIAL SUPPORT YOU CAN GET FOR YOUR MEDICATIONS REFERRAL WAS SENT TO [facility] TO SEE IF THEY CAN HELP YOU WITH HOUSING. THEIR PHONE NUMBER IS [phone]. Follow up with: LEE GUERRA [ACTIVE STAFF] - 1 Week
== END 2021-01-23 10:55 | disposition home or self-care (01) | DRG 190 ==
LOC: ED 16:18 → MED SURG 01-20 00:01 → OBSVTOIN 01-20 08:08
PROVIDERS: ADMIT Family Medicine; ATTEND Family Medicine
DX: J44.1 Chronic obstructive pulmonary disease with (acute) exacerbation (principal); J96.21 Acute and chronic respiratory failure with hypoxia; R19.7 Diarrhea, unspecified; R51.9 Headache, unspecified; I25.10 Atherosclerotic heart disease of native coronary artery without angina pectoris; I10 Essential (primary) hypertension; E78.5 Hyperlipidemia, unspecified; Z79.899 Other long term (current) drug therapy; Z79.01 Long term (current) use of anticoagulants; Z20.822 Contact with and (suspected) exposure to COVID-19
CPT/HCPCS: 36000; 36415; 36600; 71045; 71260; 80048; 80053; 81001; 82375; 82728; 82803; 82947; 83605; 83615; 83735; 83880; 84484; 85025; 85027; 85379; 85610; 85730; 86308; 87040; 87070; 87400; 93005; 93971; 94002; 94640; 94667; 94762; 96360; 96374; 96375; 99285; 99291; U0003; J0456; J0696; J1100; J1650; J2060; J2270; J2405; J2930; A9270-GY